=== PATIENT | female | born 1955 | race Caucasian/White ===

== ENCOUNTER → 2016-05-04 | Outpatient (CLI) | payer SELFPAY ==
[~2016-05-04] MED LIST: ACCUNEB 0.0.63 MG/3 INH; ACCUNEB 0.1.25 MG/1 NEB; ADVAIR 250/501 EA INH; ALBUTEROL INH; ALBUTEROL0.09 MG/A2 IH; ALBUTEROL0.09 MG/Ac INH; ANTIVERT25 MG PO; ASPIR-LOW81 MG PO; ASPIR-TRIN325 MG PO; Albuterol Sulfat3 ML; CATAFLAM50 MG PO; CEFTIN250 MG PO; CEPACOL PO; CIPRO500 MG PO; COLACE100 MG PO; CORDROL20 MG PO; DELTASONE20 M1 PO; DOXYCYCLINE100 MG PO; DUONEB 3 MG/3 ML3 M1 INH; Duoneb 3ML 3 MG/3 ML NEB; HYDROCODONE BIT1 T11 PO; IMDUR SA60 M1 PO; LACTULOSE20 GM/30 M PO; LEVAQUIN750 M1 PO; LEVOFLOXACIN500 MG PO; LORAZEPAM0.5 MG PO; MAXIPIME1 GM IV; MEDROL DOSEPAK4 MG PO; MIRALAX17 GM/DOSE PO; MUCINEX600 MG PO; NICODERM21 MG/24 H TD; PHENERGAN W/DM120 ML PO; PLAVIX75 MG PO; PRAVACHOL10 MG PO; PREDNICOT10 MG PO; PREDNICOT20 MG PO; PREDNISONE10 MG PO; PREDNISONE20 M1 PO; PREDNISONE50 MG PO; SEPTRA DS 800 M1 TAB PO; TENORMIN25 MG PO; TRAZODONE50 MG PO; VENTOLIN H0.09 MG/AC INH; VIBRAMYCIN100 MG PO; Ventolin 02.5 MG/3 M INH; ZITHROMAX Z PA250 MG PO; ZITHROMAX250 MG PO
== END | disposition home or self-care (01) ==
LOC: RESCLI 02:53
DX: Z09 Encounter for follow-up examination after completed treatment for conditions other than malignant neoplasm (principal); J44.9 Chronic obstructive pulmonary disease, unspecified; I10 Essential (primary) hypertension; R42 Dizziness and giddiness; T88.7XXA Unspecified adverse effect of drug or medicament, initial encounter; Z99.81 Dependence on supplemental oxygen; Z72.0 Tobacco use; Z71.6 Tobacco abuse counseling; Z87.891 Personal history of nicotine dependence

== ENCOUNTER → 2016-05-18 | Outpatient (CLI) | payer SELFPAY | END | disposition home or self-care (01) | LOC: RESCLI 03:54 | DX: J44.9 Chronic obstructive pulmonary disease, unspecified (principal); I10 Essential (primary) hypertension; I73.9 Peripheral vascular disease, unspecified; J96.11 Chronic respiratory failure with hypoxia; Z99.81 Dependence on supplemental oxygen; Z87.891 Personal history of nicotine dependence ==

== ENCOUNTER → 2016-08-10 | Outpatient (CLI) | payer SELFPAY | END | disposition home or self-care (01) | LOC: RESCLI 01:06 | DX: I10 Essential (primary) hypertension (principal); J96.11 Chronic respiratory failure with hypoxia; J44.9 Chronic obstructive pulmonary disease, unspecified; I25.118 Atherosclerotic heart disease of native coronary artery with other forms of angina pectoris; F33.0 Major depressive disorder, recurrent, mild; Z99.81 Dependence on supplemental oxygen; Z72.0 Tobacco use ==

== ENCOUNTER 2016-09-02 20:19 | Inpatient (IN) | payer SELFPAY ==
[~2016-09-02] VITALS: Ht 162.5 cm; Wt 77.4 kg
--- NOTE | ~2016-09-02 | CON ---
[place], [place] REPORT OF CONSULTATION NAME: TACO MIRELES UNIT #: [id number] ROOM: 532 DOCTOR: SHAKEEL JADE MD BIRTHDATE: [birth year] DOS: HISTORY OF PRESENT ILLNESS: The patient is well known to me with a known history of heavy tobacco abuse, occluded right coronary artery with collaterals with moderate disease of the LAD and circumflex. The patient was just seen by me in my office and scheduled for an outpatient stress test for tuesday, admitted with increasing shortness of breath and chest discomfort. No acute EKG changes, suggestion of myocardial injury or infarction. The patient is being treated for COPD. The patient continues to be smoking and she is a smoker, still has some chest pain, is more pleuritic in nature. No nausea, no vomiting. PAST MEDICAL HISTORY: Significant for coronary artery disease, COPD, depression, hypertension, peripheral arterial disease and tobacco abuse. SURGICAL PROBLEMS: Previous cardiac catheterization, tracheostomy, stent placement, hysterectomy. SOCIAL HISTORY: Continues to smoke about 1 to 1-1/2 packs per day, occasional alcohol. FAMILY HISTORY: Positive for coronary artery disease. ALLERGIES: None. HOME MEDICATIONS: Aspirin, atenolol, clopidogrel, and isosorbide. ALLERGIES: None. REVIEW OF SYSTEMS: CONSTITUTIONAL: No fever, no chills. HEENT: No visual disturbances or hearing problems. CARDIOVASCULAR: As per HPI. RESPIRATORY: Positive for shortness of breath. GASTROINTESTINAL: No nausea, no vomiting. GENITOURINARY: No dysuria. NEUROLOGIC: No syncope. ENDOCRINE: Intact. PHYSICAL EXAMINATION: VITAL SIGNS: Blood pressure is 140/70, patient is in sinus rhythm. HEENT: Unremarkable. NECK: Supple, no JVD. LUNGS: Diminished breath sounds with few coarse rhonchi. HEART: Sounds are regular. ABDOMEN: Soft. NEUROLOGIC: Stable. LABORATORY DATA: Electrolytes are normal. Creatinine is normal. INR is normal. Hemoglobin is 9.4, hematocrit 32.4. Chest x-ray shows COPD. [place], [place] REPORT OF CONSULTATION NAME: TACO MIRELES UNIT #: [id number] ROOM: 532 DOCTOR: SHAKEEL JADE MD BIRTHDATE: [birth year] IMPRESSION: The patient with possible pneumonitis, COPD exacerbation, atypical chest discomfort, coronary artery disease, thrombocytosis, hypertension, noncompliance, tobacco abuse. RECOMMENDATIONS: Continue the present medications. Continue the steroids and antibiotics. We will continue to keep the stress test as ordered on Tuesday. Continue the nitroglycerin as ordered and we will follow up. SHAKEEL JADE MD CM:CONSTR:REPORT OF CONSULTATION 0728 09/04/16 1916 interface
--- NOTE | ~2016-09-02 | EKG ---
[place], [place] ELECTROCARDIOGRAM REPORT NAME: TACO MIRELES UNIT #: [id number] ROOM: 532 DOCTOR: SHAKEEL JADE MD BIRTHDATE: [birth year] DOS: 09/02/2016 TIME: 20:45:51 Normal sinus rhythm, Q-waves in lead 3, poor R wave progression with nonspecific ST-T changes. SHAKEEL JADE MD CM:EKGRPT:ELECTROCARDIOGRAM REPORT [id number] SHAKEEL JADE MD
[2016-09-02 20:35] VITALS: BP 143/69
[2016-09-02 20:48] LABS: BASO # 0.1 10*3/uL (0.0-0.1); BASO % 0.6 % (0.0-1.0); EOS # 0.2 10*3/uL (0.0-0.4); EOS % 1.4 % (1.0-4.0); HEMATOCRIT 32.4 % (37.0-47.0); HEMOGLOBIN 9.4 g/dl (12.0-16.0); LYMPH # 4.2 10*3/uL (1.3-4.4); LYMPH % 33.8 % (27.0-41.0); MEAN CELL VOLUME 70.9 fl (81.0-99.0); MEAN CORPUSCULAR HGB 20.6 pg (27.0-31.0); MEAN PLATELET VOLUME 8.2 fl (9.6-12.3); MONO # 1.1 10*3/uL (0.1-1.0); MONO % 8.5 % (3.0-9.0); NEUT # 6.9 10*3/uL (2.3-7.9); NEUT % 55.4 % (47.0-73.0); PLATELET COUNT AUTOMATED 440 10*3/uL (130-400); RED BLOOD COUNT 4.57 10*6/uL (4.10-5.10); RED CELL DISTRI WIDTH 18.1 % (0-14.5); WHITE BLOOD COUNT 12.5 10*3/uL (4.8-10.8)
[2016-09-02 20:50] VITALS: BP 168/73
[2016-09-02 21:07] LABS: ALBUMIN 3.6 gm/dl (3.1-4.5); ALKALINE PHOSPHATASE 71 U/L (45-117); BILIRUBIN, TOTAL 0.3 mg/dl (0.2-1.0); BUN 6 mg/dl (7-24); CARBON DIOXIDE 27 mmol/L (21-32); CHLORIDE 99 mmol/L (98-107); EST GLOM FILT AFRICAN AMERICAN > 60 ml/min; GLUCOSE 89 mg/dL (65-99); MAGNESIUM 2.1 mg/dL (1.5-2.1); POTASSIUM 4.2 mmol/L (3.5-5.1); SGOT/AST 19 IU/L (3-35); SGPT/ALT 27 U/L (12-78); SODIUM 135 mmol/L (136-145); TOTAL PROTEIN 7.4 gm/dL (6.4-8.2)
[2016-09-02 21:09] LABS: INTERNATIONAL NORM RATIO 0.9 (2.0-3.5); PROTHROMBIN TIME 9.9 SECONDS (9.0-12.4)
[2016-09-02 21:11] LABS: TROPONIN I < 0.015 ng/ml (<0.045)
[2016-09-02 21:16] VITALS: BP 135/77
[2016-09-02 22:09] VITALS: BP 140/72; BP 170/87
[2016-09-02 23:30] VITALS: BP 128/62
[2016-09-03 07:00] LABS: HEMATOCRIT 30.3 % (37.0-47.0); HEMOGLOBIN 8.7 g/dl (12.0-16.0); MEAN CELL VOLUME 71.5 fl (81.0-99.0); MEAN CORPUSCULAR HGB 20.5 pg (27.0-31.0); MEAN CORPUSCULAR HGB CONC 28.7 g/dl (33.0-37.0); MEAN PLATELET VOLUME 8.6 fl (9.6-12.3); PLATELET COUNT AUTOMATED 439 10*3/uL (130-400); RED BLOOD COUNT 4.24 10*6/uL (4.10-5.10); RED CELL DISTRI WIDTH 17.8 % (0-14.5); WHITE BLOOD COUNT 11.2 10*3/uL (4.8-10.8)
[2016-09-03 07:25] LABS: PROTHROMBIN TIME 10.5 SECONDS (9.0-12.4)
[2016-09-03 07:27] LABS: ALBUMIN 3.2 gm/dl (3.1-4.5); BUN 7 mg/dl (7-24); CARBON DIOXIDE 22 mmol/L (21-32); CHLORIDE 102 mmol/L (98-107); GLUCOSE 161 mg/dL (65-99); MAGNESIUM 1.9 mg/dL (1.5-2.1); POTASSIUM 4.6 mmol/L (3.5-5.1); SODIUM 135 mmol/L (136-145)
[2016-09-03 07:29] LABS: HYPOCHROMIA MODERATE; LYMPHOCYTE # 0.6 10*3/uL (1.3-4.4); MICROCYTOSIS SLIGHT; NEUTROPHIL # 10.6 10*3/uL (2.3-7.9); NEUTROPHILS 95 % (47-73); PLATELET SUFFICIENCY HIGH (NORMAL); TOTAL CELLS COUNTED 100 #CELLS
[2016-09-03 07:30] LABS: HEMOGLOBIN A1c 6.1 % (4.8-5.6); POLYCHROMASIA SLIGHT; SCHISTOCYTES FEW
[2016-09-03 07:38] LABS: ALKALINE PHOSPHATASE 65 U/L (45-117); BILIRUBIN, TOTAL 0.2 mg/dl (0.2-1.0); CHOLESTEROL 197 mg/dL (<200); EST GLOM FILT AFRICAN AMERICAN > 60 ml/min; FREE T4 0.86 ng/dl (0.76-1.46); HDL CHOLESTEROL 72 mg/dl (40-60); IRON 26 ug/dL (50-170); IRON SATURATION 5 %; LDL CHOLESTEROL 116 mg/dL (9-159); PHOSPHOROUS 3.2 mg/dL (2.5-4.9); SGOT/AST 18 IU/L (3-35); SGPT/ALT 25 U/L (12-78); THYROID STIM HORMONE (HS) 0.424 uIU/ml (0.358-4.75); TOTAL PROTEIN 6.9 gm/dL (6.4-8.2); TRIGLYCERIDES 43 mg/dl (<150); UIBC 437 ug/dL (110-365); VLDL CHOLESTEROL 9 mg/dL (6-40)
[2016-09-03 08:00] VITALS: BP 116/56
[2016-09-03 08:04] LABS: VITAMIN D, 25-HYDROXY 25.6 ng/mL (30-100)
[2016-09-03 08:05] LABS: FOLIC ACID 20.91 ng/mL (>5.38)
[2016-09-03 12:00] VITALS: BP 138/64
[2016-09-03 16:00] VITALS: BP 129/63
[2016-09-03 20:00] VITALS: BP 119/56
[2016-09-04] VITALS: BP 129/61
[2016-09-04 07:02] LABS: HEMATOCRIT 28.5 % (37.0-47.0); HEMOGLOBIN 8.2 g/dl (12.0-16.0); LYMPH # 0.9 10*3/uL (1.3-4.4); LYMPH % 10.1 % (27.0-41.0); MEAN CORPUSCULAR HGB 20.7 pg (27.0-31.0); MEAN CORPUSCULAR HGB CONC 28.8 g/dl (33.0-37.0); MEAN PLATELET VOLUME 8.9 fl (9.6-12.3); MONO # 0.2 10*3/uL (0.1-1.0); MONO % 1.8 % (3.0-9.0); NEUT # 7.9 10*3/uL (2.3-7.9); NEUT % 87.7 % (47.0-73.0); PLATELET COUNT AUTOMATED 396 10*3/uL (130-400); RED BLOOD COUNT 3.96 10*6/uL (4.10-5.10); RED CELL DISTRI WIDTH 17.8 % (0-14.5)
[2016-09-04 07:28] LABS: BUN 8 mg/dl (7-24); CARBON DIOXIDE 28 mmol/L (21-32); CHLORIDE 105 mmol/L (98-107); EST GLOM FILT AFRICAN AMERICAN > 60 ml/min; GLUCOSE 147 mg/dL (65-99); POTASSIUM 4.8 mmol/L (3.5-5.1); SODIUM 141 mmol/L (136-145)
[2016-09-04 08:00] VITALS: BP 127/52
[2016-09-04 12:00] VITALS: BP 133/57
[2016-09-04 16:00] VITALS: BP 117/51
[2016-09-04 20:00] VITALS: BP 124/53
[2016-09-05] VITALS: BP 122/50; BP 136/60
[2016-09-05 04:00] VITALS: BP 136/60
[2016-09-05 06:34] LABS: BASO % 0.1 % (0.0-1.0); HEMATOCRIT 26.8 % (37.0-47.0); HEMOGLOBIN 7.7 g/dl (12.0-16.0); IG # 0.1 10*3/uL (0.0-0.1); LYMPH # 1.6 10*3/uL (1.3-4.4); LYMPH % 14.4 % (27.0-41.0); MEAN CELL VOLUME 72.4 fl (81.0-99.0); MEAN CORPUSCULAR HGB 20.8 pg (27.0-31.0); MEAN CORPUSCULAR HGB CONC 28.7 g/dl (33.0-37.0); MEAN PLATELET VOLUME 8.6 fl (9.6-12.3); MONO # 0.9 10*3/uL (0.1-1.0); MONO % 7.9 % (3.0-9.0); NEUT # 8.4 10*3/uL (2.3-7.9); PLATELET COUNT AUTOMATED 360 10*3/uL (130-400); WHITE BLOOD COUNT 10.9 10*3/uL (4.8-10.8)
[2016-09-05 06:56] LABS: BUN 12 mg/dl (7-24); CARBON DIOXIDE 32 mmol/L (21-32); CHLORIDE 101 mmol/L (98-107); EST GLOM FILT AFRICAN AMERICAN > 60 ml/min; GLUCOSE 105 mg/dL (65-99); POTASSIUM 4.1 mmol/L (3.5-5.1); SODIUM 139 mmol/L (136-145)
[2016-09-05 08:00] VITALS: BP 119/53
[2016-09-05] MEDS ORDERED: FEROSUL325 MG PO (11:12)
[2016-09-05] MEDS ORDERED: D-1000 185 MG-11 TAB PO (11:12)
[2016-09-05] MEDS ORDERED: PREDNISONE10 MG PO (11:12)
[2016-09-05] MEDS ORDERED: LEVOFLOXACIN500 MG PO (11:12)
[2016-09-05 12:00] VITALS: BP 119/64
== END 2016-09-05 13:09 | disposition home or self-care (01) | DRG 871 ==
LOC: ED 20:19 → EDHOLD 21:51 → 5E 22:10
PROVIDERS: Internal Medicine; Student in an Organized Health Care Education/Training Program
DX: A41.9 Sepsis, unspecified organism (principal); J18.9 Pneumonia, unspecified organism; Z93.0 Tracheostomy status; J44.0 Chronic obstructive pulmonary disease with (acute) lower respiratory infection; E87.1 Hypo-osmolality and hyponatremia; D50.9 Iron deficiency anemia, unspecified; I10 Essential (primary) hypertension; F17.210 Nicotine dependence, cigarettes, uncomplicated; J44.1 Chronic obstructive pulmonary disease with (acute) exacerbation; I25.119 Atherosclerotic heart disease of native coronary artery with unspecified angina pectoris; F32.9 Major depressive disorder, single episode, unspecified; I73.9 Peripheral vascular disease, unspecified; D47.3 Essential (hemorrhagic) thrombocythemia; R07.82 Intercostal pain; F41.9 Anxiety disorder, unspecified; Z90.710 Acquired absence of both cervix and uterus; Z82.49 Family history of ischemic heart disease and other diseases of the circulatory system; Z71.6 Tobacco abuse counseling; Z95.9 Presence of cardiac and vascular implant and graft, unspecified; Z79.51 Long term (current) use of inhaled steroids; Z79.82 Long term (current) use of aspirin; Z79.899 Other long term (current) drug therapy

== ENCOUNTER → 2016-09-07 | Outpatient (CLI) | payer SELFPAY ==
[~2016-09-07] MED LIST changes: +D-1000 185 MG-11 TAB PO; +FEROSUL325 MG PO
--- NOTE | ~2016-09-07 | ST ---
[place], [place] EXERCISE STRESS TEST REPORT NAME: TACO MIRELES UNIT #: [id number] ROOM: DOCTOR: SHAKEEL JADE MD BIRTHDATE: [birth year] DOS: Lexiscan portion of the Lexiscan Cardiolite. Baseline cardiogram is sinus rhythm with nonspecific ST-T changes. The patient received 0.4 mg Lexiscan, duration of 10 seconds after 1 minute test duration. The patient did have significant shortness of breath, but no new EKG changes. No chest discomfort. Blood pressure and heart rate response was normal. FINAL IMPRESSION: No EKG changes with Lexiscan. No chest pain with Lexiscan. Positive shortness of breath with Lexiscan. Blood pressure and heart rate response was normal. Nuclear images will be reported separately. SHAKEEL JADE MD CM:STRESS:EXERCISE STRESS TEST REPORT [id number] SHAKEEL JADE MD
== END | disposition home or self-care (01) ==
LOC: CARD 02:05
DX: I25.729 Atherosclerosis of autologous artery coronary artery bypass graft(s) with unspecified angina pectoris (principal); R53.81 Other malaise

== ENCOUNTER 2016-09-20 22:35 | Inpatient (IN) | payer SELFPAY ==
[~2016-09-20] VITALS: Ht 162.6 cm; Wt 77.8 kg
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
[2016-09-20 22:43] VITALS: BP 151/72
[2016-09-20] MEDS ORDERED: VITAMIN D-32000 UNIT PO (22:44)
[2016-09-20 23:20] VITALS: BP 164/77
[2016-09-20 23:59] LABS: BASO % 0.2 % (0.0-1.0); EOS # 0.1 10*3/uL (0.0-0.4); EOS % 0.8 % (1.0-4.0); HEMATOCRIT 31.5 % (37.0-47.0); HEMOGLOBIN 9.1 g/dl (12.0-16.0); IG # 0.1 10*3/uL (0.0-0.1); LYMPH # 4.7 10*3/uL (1.3-4.4); LYMPH % 27.7 % (27.0-41.0); MEAN CELL VOLUME 70.3 fl (81.0-99.0); MEAN CORPUSCULAR HGB 20.3 pg (27.0-31.0); MEAN CORPUSCULAR HGB CONC 28.9 g/dl (33.0-37.0); MEAN PLATELET VOLUME 8.2 fl (9.6-12.3); MONO # 1.5 10*3/uL (0.1-1.0); MONO % 8.7 % (3.0-9.0); NEUT # 10.5 10*3/uL (2.3-7.9); PLATELET COUNT AUTOMATED 537 10*3/uL (130-400); RED BLOOD COUNT 4.48 10*6/uL (4.10-5.10); RED CELL DISTRI WIDTH 19.3 % (0-14.5)
[2016-09-21] VITALS (7 sets, daily range): BP systolic 98–145; BP diastolic 48–56
[2016-09-21 00:08] LABS: ALBUMIN 3.4 gm/dl (3.1-4.5); ALKALINE PHOSPHATASE 65 U/L (45-117); BILIRUBIN, TOTAL 0.1 mg/dl (0.2-1.0); BUN 12 mg/dl (7-24); CARBON DIOXIDE 28 mmol/L (21-32); CHLORIDE 103 mmol/L (98-107); EST GLOM FILT AFRICAN AMERICAN > 60 ml/min; GLUCOSE 108 mg/dL (65-99); MAGNESIUM 2.2 mg/dL (1.5-2.1); POTASSIUM 3.9 mmol/L (3.5-5.1); SGOT/AST 14 IU/L (3-35); SGPT/ALT 27 U/L (12-78); SODIUM 136 mmol/L (136-145); TOTAL PROTEIN 6.8 gm/dL (6.4-8.2)
[2016-09-21 00:09] LABS: TROPONIN I < 0.015 ng/ml (<0.045)
[2016-09-21 06:41] LABS: HEMATOCRIT 28.8 % (37.0-47.0); HEMOGLOBIN 8.2 g/dl (12.0-16.0); MEAN CELL VOLUME 71.1 fl (81.0-99.0); MEAN CORPUSCULAR HGB 20.2 pg (27.0-31.0); MEAN CORPUSCULAR HGB CONC 28.5 g/dl (33.0-37.0); MEAN PLATELET VOLUME 8.4 fl (9.6-12.3); PLATELET COUNT AUTOMATED 489 10*3/uL (130-400); RED BLOOD COUNT 4.05 10*6/uL (4.10-5.10); RED CELL DISTRI WIDTH 19.1 % (0-14.5); WHITE BLOOD COUNT 15.1 10*3/uL (4.8-10.8)
[2016-09-21 07:04] LABS: BUN 9 mg/dl (7-24); CARBON DIOXIDE 30 mmol/L (21-32); CHLORIDE 104 mmol/L (98-107); CHOLESTEROL 157 mg/dL (<200); EST GLOM FILT AFRICAN AMERICAN > 60 ml/min; FREE T4 0.92 ng/dl (0.76-1.46); GLUCOSE 94 mg/dL (65-99); HDL CHOLESTEROL 73 mg/dl (40-60); LDL CHOLESTEROL 67 mg/dL (9-159); SODIUM 141 mmol/L (136-145); TRIGLYCERIDES 86 mg/dl (<150); VLDL CHOLESTEROL 17 mg/dL (6-40)
[2016-09-21 07:07] LABS: BASOPHIL # 0.3 10*3/uL (0-0.1); BASOPHILS 2 % (0-1); EOSINOPHIL # 0.2 10*3/uL (0-0.4); EOSINOPHILS 1 % (1-4); LYMPHOCYTE # 6.5 10*3/uL (1.3-4.4); MONOCYTE # 0.6 10*3/uL (0.1-1.0); NEUTROPHIL # 7.6 10*3/uL (2.3-7.9); NEUTROPHILS 50 % (47-73); PLATELET SUFFICIENCY HIGH (NORMAL); TOTAL CELLS COUNTED 100 #CELLS
[2016-09-21 07:08] LABS: HYPOCHROMIA SLIGHT; OVALOCYTES FEW; TARGET CELLS FEW
[2016-09-21 07:39] LABS: HEMOGLOBIN A1c 6.2 % (4.8-5.6)
[2016-09-21 08:34] LABS: FOLIC ACID 21.38 ng/mL (>5.38)
[2016-09-22] VITALS: BP 128/58
[2016-09-22 06:11] LABS: BASO % 0.1 % (0.0-1.0); HEMATOCRIT 29.6 % (37.0-47.0); HEMOGLOBIN 8.6 g/dl (12.0-16.0); IG # 0.1 10*3/uL (0.0-0.1); LYMPH # 1.1 10*3/uL (1.3-4.4); LYMPH % 9.6 % (27.0-41.0); MEAN CELL VOLUME 71.8 fl (81.0-99.0); MEAN CORPUSCULAR HGB 20.9 pg (27.0-31.0); MEAN CORPUSCULAR HGB CONC 29.1 g/dl (33.0-37.0); MEAN PLATELET VOLUME 8.5 fl (9.6-12.3); MONO # 0.5 10*3/uL (0.1-1.0); MONO % 4.6 % (3.0-9.0); NEUT # 10.1 10*3/uL (2.3-7.9); NEUT % 84.9 % (47.0-73.0); PLATELET COUNT AUTOMATED 494 10*3/uL (130-400); RED BLOOD COUNT 4.12 10*6/uL (4.10-5.10); RED CELL DISTRI WIDTH 19.1 % (0-14.5); WHITE BLOOD COUNT 11.8 10*3/uL (4.8-10.8)
[2016-09-22 06:31] LABS: BUN 11 mg/dl (7-24); CARBON DIOXIDE 29 mmol/L (21-32); CHLORIDE 102 mmol/L (98-107); EST GLOM FILT AFRICAN AMERICAN > 60 ml/min; GLUCOSE 123 mg/dL (65-99); POTASSIUM 4.5 mmol/L (3.5-5.1); SODIUM 137 mmol/L (136-145)
[2016-09-22 08:00] VITALS: BP 119/47
[2016-09-22 12:00] VITALS: BP 133/61
[2016-09-22] MEDS ORDERED: ZITHROMAX250 MG PO (14:27)
[2016-09-22 16:00] VITALS: BP 131/53
== END 2016-09-22 17:10 | disposition home or self-care (01) | DRG 871 ==
LOC: ED 22:35 → EDHOLD 09-21 00:24 → 5E 09-21 00:24
PROVIDERS: Emergency Medicine Emergency Medical Services; Family Medicine
DX: A41.9 Sepsis, unspecified organism (principal); J18.9 Pneumonia, unspecified organism; J96.01 Acute respiratory failure with hypoxia; J44.0 Chronic obstructive pulmonary disease with (acute) lower respiratory infection; D50.9 Iron deficiency anemia, unspecified; F17.210 Nicotine dependence, cigarettes, uncomplicated; J44.1 Chronic obstructive pulmonary disease with (acute) exacerbation; I10 Essential (primary) hypertension; E83.41 Hypermagnesemia; I25.118 Atherosclerotic heart disease of native coronary artery with other forms of angina pectoris; I73.9 Peripheral vascular disease, unspecified; F32.9 Major depressive disorder, single episode, unspecified; G44.89 Other headache syndrome; Z79.899 Other long term (current) drug therapy; Z71.6 Tobacco abuse counseling; Z87.01 Personal history of pneumonia (recurrent); Z90.49 Acquired absence of other specified parts of digestive tract; Z90.711 Acquired absence of uterus with remaining cervical stump; Z82.49 Family history of ischemic heart disease and other diseases of the circulatory system; Z83.3 Family history of diabetes mellitus; Z98.61 Coronary angioplasty status

== ENCOUNTER 2016-09-25 11:19 | Emergency (ER) | payer SELFPAY ==
[~2016-09-25] VITALS: Wt 95.3 kg
[~2016-09-25 11:19] MED LIST changes: +VITAMIN D-32000 UNIT PO
[2016-09-25 11:41] LABS: BASO % 0.2 % (0.0-1.0); EOS # 0.3 10*3/uL (0.0-0.4); EOS % 1.4 % (1.0-4.0); HEMATOCRIT 33.3 % (37.0-47.0); HEMOGLOBIN 9.4 g/dl (12.0-16.0); IG # 0.1 10*3/uL (0.0-0.1); LYMPH # 2.6 10*3/uL (1.3-4.4); LYMPH % 14.3 % (27.0-41.0); MEAN CELL VOLUME 72.1 fl (81.0-99.0); MEAN CORPUSCULAR HGB 20.3 pg (27.0-31.0); MEAN CORPUSCULAR HGB CONC 28.2 g/dl (33.0-37.0); MONO % 5.6 % (3.0-9.0); NEUT # 14.1 10*3/uL (2.3-7.9); NEUT % 77.8 % (47.0-73.0); PLATELET COUNT AUTOMATED 450 10*3/uL (130-400); RED BLOOD COUNT 4.62 10*6/uL (4.10-5.10); RED CELL DISTRI WIDTH 19.9 % (0-14.5); WHITE BLOOD COUNT 18.2 10*3/uL (4.8-10.8)
[2016-09-25 11:59] LABS: ALBUMIN 3.3 gm/dl (3.1-4.5); ALKALINE PHOSPHATASE 61 U/L (45-117); BILIRUBIN, TOTAL 0.4 mg/dl (0.2-1.0); BUN 13 mg/dl (7-24); CARBON DIOXIDE 30 mmol/L (21-32); CHLORIDE 103 mmol/L (98-107); EST GLOM FILT AFRICAN AMERICAN > 60 ml/min; GLUCOSE 119 mg/dL (65-99); POTASSIUM 4.3 mmol/L (3.5-5.1); SGOT/AST 15 IU/L (3-35); SGPT/ALT 30 U/L (12-78); SODIUM 138 mmol/L (136-145); TOTAL PROTEIN 6.8 gm/dL (6.4-8.2)
[2016-09-25 12:00] LABS: TROPONIN I < 0.015 ng/ml (<0.045)
[2016-09-25 12:45] VITALS: BP 132/66
[2016-09-25] MEDS ORDERED: PREDNISONE20 M1 PO (13:28)
== END 2016-09-25 14:10 | disposition home or self-care (01) ==
LOC: ED 11:19
PROVIDERS: Nurse Practitioner Family
DX: J44.1 Chronic obstructive pulmonary disease with (acute) exacerbation (principal); D72.829 Elevated white blood cell count, unspecified; F17.200 Nicotine dependence, unspecified, uncomplicated

== ENCOUNTER 2016-09-26 17:48 | Inpatient (IN) | payer SELFPAY ==
[~2016-09-26] VITALS: Ht 162.6 cm; Wt 75.3 kg
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
--- NOTE | ~2016-09-26 | PR ---
[place], [place] PROGRESS NOTE NAME: TACO MIRELES UNIT #: [id number] ROOM: 529 DOCTOR: WOOD AUGUSTINE MD,KJ BIRTHDATE: [birth year] DOS: 09/28/2016 SUBJECTIVE: She reported reduction in symptoms of shortness of breath, the cough has been still noted, not completely resolved, moderately. The wheezing was noted decreased. There were no symptoms of chest pain. OBJECTIVE: VITAL SIGNS: For the patient which has been recorded shows normal temperature, respiratory rate 18, heart rate 77, blood pressure 130/59. Pulse oxygen saturation of the patient noted on 4 liters nasal cannula 98% saturation. HEENT: Showed no acute change. NECK: Supple. CARDIOVASCULAR: S1, S2 is audible. LUNGS: The patient was noted with moderate general reduction in breath sounds and mild expiratory wheezing. ABDOMEN: Soft and nontender. LABORATORY DATA: CBC: WBC count 13.4, hemoglobin 8.6, hematocrit 29.8, platelet count 409,000. BMP was noted as BUN and creatinine were normal. IMPRESSION: 1. Acute exacerbation of chronic obstructive pulmonary disease was noted with acute tracheobronchitis. 2. Right upper lung pulmonary nodule, suspected malignancy. 3. History of chronic heavy nicotine abuse, known for a mcfp. PLAN OF TREATMENT: No changes from the pulmonary standpoint at this time was planned. The patient has been ordered CT-guided needle aspirate biopsy by Dr. Autumn Le. Await for the results of the biopsy. Reduce the dose of Solu-Medrol progressively as the patient with improvement in the respiratory status. Other usual care, plan of management and treatments. KJ MUIR MD CM:PNTRANS 1011 1212 KJ AUGUSTINE MD 09/29/16 1212 interface
--- NOTE | ~2016-09-26 | PR ---
[place], [place] PROGRESS NOTE NAME: TACO MIRELES UNIT #: [id number] ROOM: 529 DOCTOR: WOOD AUGUSTINE MD,KJ BIRTHDATE: [birth year] DOS: 09/29/2016 SUBJECTIVE: She has been continued with current plan of treatment at this time without any changes. Denies symptoms of chest pain or any abdominal pain. Coughing, the patient has history reported. She was taken off the Plavix. The biopsy of the right lung pulmonary nodule was scheduled to be done on Tuesday. OBJECTIVE: VITAL SIGNS: Recorded shows the blood pressure noted as 111/57, respiratory rate 18, heart rate 74, temperature normal. The pulse oxygen saturation recorded as 97% on 2 L nasal cannula. HEENT: No acute change. NECK: Supple. CARDIOVASCULAR: S1, S2 audible. LUNGS: Moderate general reduction in the breath sounds were noted in the lungs bilaterally. ABDOMEN: Soft, nontender. EXTREMITIES: Shows no edema. IMPRESSION: Acute exacerbation of chronic obstructive pulmonary disease, acute tracheobronchitis, history of nicotine dependence and right lung pulmonary nodule suspicious for malignancy. PLAN OF TREATMENT: No changes in the plan of management at this time needs to be done. All other previous treatment will be continued previously in progress. Usual care. All other supportive therapy, plan of care. KJ MUIR MD CM:PNTRANS 1152 07 KJ AUGUSTINE MD 09/29/162207 interface
--- NOTE | ~2016-09-26 | PR ---
[place], [place] PROGRESS NOTE NAME: TACO MIRELES UNIT #: [id number] ROOM: 529 DOCTOR: KJ PENN MD BIRTHDATE: [birth year] DOS: 09/30/2016 PULMONARY FOLLOWUP SUBJECTIVE: She has been noted comfortable at this time reporting reduction and improvement in the respiratory symptoms of cough, wheezing and shortness of breath. She was planned for discharge home today on tapering dose of prednisone. The patient has a biopsy of the right upper lung pulmonary nodule suggested by the hospitalist services for Tuesday. OBJECTIVE: VITAL SIGNS: Showed normal temperature, respiratory rate of 20, heart rate of 69, blood pressure 110/54, pulse ox saturation on 1 liter nasal cannula 96% saturation. HEENT: No acute change. CARDIOVASCULAR: S1, S2 audible. LUNGS: Moderate decreased breath sounds noted in the lungs bilaterally. ABDOMEN: Soft and nontender. LABORATORY DATA: BMP for this patient was noted with potassium of 5.2, CO2 of 34. CBC: WBC count 9.2, hematocrit 32.0, platelet count was normal. IMPRESSION: 1. Right upper lung pulmonary nodule. The patient noted with acute exacerbation of chronic obstructive pulmonary disease and acute tracheobronchitis. 2. Mild hyperkalemia, which has been addressed by the primary care attending team. 3. History of pulmonary nodules suspicious for malignancy, right upper lung. Proceed with the biopsy and the right upper lung pulmonary nodule as an outpatient. Other treatment plan of management. If the patient desires, she can establish appointment in the office. She has not been seen in my office for the past 7 years. It was recommended to be seen in the hospital after previous hospitalization, but she has not made any appointments. [place], [place] PROGRESS NOTE NAME: TACO MIRELES UNIT #: [id number] ROOM: 529 DOCTOR: KJ PENN MD BIRTHDATE: [birth year] KJ MUIR MD CM:PNTRANS 1143 1201 KJ AUGUSTINE MD 09/30/16 1201 interface
[2016-09-26 17:54] VITALS: BP 175/86
[2016-09-26 18:21] LABS: HEMATOCRIT 32.2 % (37.0-47.0); HEMOGLOBIN 9.4 g/dl (12.0-16.0); MEAN CELL VOLUME 69.7 fl (81.0-99.0); MEAN CORPUSCULAR HGB 20.3 pg (27.0-31.0); MEAN CORPUSCULAR HGB CONC 29.2 g/dl (33.0-37.0); MEAN PLATELET VOLUME 8.5 fl (9.6-12.3); PLATELET COUNT AUTOMATED 478 10*3/uL (130-400); RED BLOOD COUNT 4.62 10*6/uL (4.10-5.10); RED CELL DISTRI WIDTH 19.9 % (0-14.5); WHITE BLOOD COUNT 15.2 10*3/uL (4.8-10.8)
[2016-09-26 18:38] LABS: ALBUMIN 3.6 gm/dl (3.1-4.5); ALKALINE PHOSPHATASE 61 U/L (45-117); BILIRUBIN, TOTAL 0.3 mg/dl (0.2-1.0); BUN 11 mg/dl (7-24); CARBON DIOXIDE 26 mmol/L (21-32); CHLORIDE 97 mmol/L (98-107); EST GLOM FILT AFRICAN AMERICAN > 60 ml/min; GLUCOSE 135 mg/dL (65-99); POTASSIUM 4.6 mmol/L (3.5-5.1); SGOT/AST 12 IU/L (3-35); SGPT/ALT 35 U/L (12-78); SODIUM 135 mmol/L (136-145); TOTAL PROTEIN 7.2 gm/dL (6.4-8.2)
[2016-09-26 18:39] VITALS: BP 119/86
[2016-09-26 18:40] LABS: LYMPHOCYTE # 0.8 10*3/uL (1.3-4.4); METAMYELOCYTES 1 % (0-0); NEUTROPHIL # 14.3 10*3/uL (2.3-7.9); NEUTROPHILS 94 % (47-73); TOTAL CELLS COUNTED 100 #CELLS
[2016-09-26 18:41] LABS: HYPOCHROMIA SLIGHT; OVALOCYTES FEW; PLATELET SUFFICIENCY HIGH (NORMAL); ROULEAUX SLIGHT; TARGET CELLS FEW
[2016-09-26 18:42] LABS: MICROCYTOSIS SLIGHT
[2016-09-26 18:43] LABS: TROPONIN I < 0.015 ng/ml (<0.045)
[2016-09-26 18:59] VITALS: BP 154/74
[2016-09-26 20:00] VITALS: BP 163/86
[2016-09-27] VITALS: BP 116/45
[2016-09-27 06:27] LABS: HEMATOCRIT 29.4 % (37.0-47.0); HEMOGLOBIN 8.5 g/dl (12.0-16.0); MEAN CELL VOLUME 71.2 fl (81.0-99.0); MEAN CORPUSCULAR HGB 20.6 pg (27.0-31.0); MEAN CORPUSCULAR HGB CONC 28.9 g/dl (33.0-37.0); MEAN PLATELET VOLUME 8.9 fl (9.6-12.3); PLATELET COUNT AUTOMATED 430 10*3/uL (130-400); RED BLOOD COUNT 4.13 10*6/uL (4.10-5.10); RED CELL DISTRI WIDTH 19.7 % (0-14.5); WHITE BLOOD COUNT 11.8 10*3/uL (4.8-10.8)
[2016-09-27 06:53] LABS: ALKALINE PHOSPHATASE 53 U/L (45-117); BILIRUBIN, TOTAL 0.2 mg/dl (0.2-1.0); BUN 13 mg/dl (7-24); CARBON DIOXIDE 26 mmol/L (21-32); CHLORIDE 102 mmol/L (98-107); EST GLOM FILT AFRICAN AMERICAN > 60 ml/min; GLUCOSE 132 mg/dL (65-99); MAGNESIUM 1.9 mg/dL (1.5-2.1); PHOSPHOROUS 3.7 mg/dL (2.5-4.9); POTASSIUM 4.6 mmol/L (3.5-5.1); SGOT/AST 25 IU/L (3-35); SGPT/ALT 41 U/L (12-78); SODIUM 134 mmol/L (136-145); TOTAL PROTEIN 6.2 gm/dL (6.4-8.2)
[2016-09-27 06:55] LABS: PROTHROMBIN TIME 10.7 SECONDS (9.0-12.4)
[2016-09-27 07:26] LABS: ACANTHOCYTES FEW; HYPOCHROMIA SLIGHT; LYMPHOCYTE # 0.4 10*3/uL (1.3-4.4); MICROCYTOSIS SLIGHT; NEUTROPHIL # 11.4 10*3/uL (2.3-7.9); NEUTROPHILS 97 % (47-73); PLATELET SUFFICIENCY HIGH (NORMAL); TOTAL CELLS COUNTED 100 #CELLS
[2016-09-27 08:00] VITALS: BP 134/60
[2016-09-27 12:00] VITALS: BP 139/62
[2016-09-27 16:00] VITALS: BP 126/49
[2016-09-27 20:00] VITALS: BP 135/60
[2016-09-28] VITALS (7 sets, daily range): BP systolic 110–149; BP diastolic 52–68
[2016-09-28 06:14] LABS: BASO % 0.1 % (0.0-1.0); HEMATOCRIT 29.8 % (37.0-47.0); HEMOGLOBIN 8.6 g/dl (12.0-16.0); IG # 0.1 10*3/uL (0.0-0.1); LYMPH # 1.3 10*3/uL (1.3-4.4); LYMPH % 9.4 % (27.0-41.0); MEAN CELL VOLUME 72.2 fl (81.0-99.0); MEAN CORPUSCULAR HGB 20.8 pg (27.0-31.0); MEAN CORPUSCULAR HGB CONC 28.9 g/dl (33.0-37.0); MEAN PLATELET VOLUME 8.8 fl (9.6-12.3); MONO # 1.1 10*3/uL (0.1-1.0); MONO % 8.4 % (3.0-9.0); NEUT # 10.9 10*3/uL (2.3-7.9); NEUT % 81.7 % (47.0-73.0); PLATELET COUNT AUTOMATED 409 10*3/uL (130-400); RED BLOOD COUNT 4.13 10*6/uL (4.10-5.10); WHITE BLOOD COUNT 13.4 10*3/uL (4.8-10.8)
[2016-09-28 06:42] LABS: BUN 15 mg/dl (7-24); CARBON DIOXIDE 32 mmol/L (21-32); CHLORIDE 101 mmol/L (98-107); EST GLOM FILT AFRICAN AMERICAN > 60 ml/min; GLUCOSE 108 mg/dL (65-99); POTASSIUM 4.7 mmol/L (3.5-5.1); SODIUM 137 mmol/L (136-145)
[2016-09-29] VITALS: BP 122/58
[2016-09-29 04:00] VITALS: BP 122/58
[2016-09-29 06:04] LABS: BASO % 0.1 % (0.0-1.0); HEMATOCRIT 31.1 % (37.0-47.0); HEMOGLOBIN 8.7 g/dl (12.0-16.0); IG # 0.1 10*3/uL (0.0-0.1); LYMPH # 1.5 10*3/uL (1.3-4.4); LYMPH % 13.4 % (27.0-41.0); MEAN CORPUSCULAR HGB 20.1 pg (27.0-31.0); MEAN PLATELET VOLUME 8.7 fl (9.6-12.3); MONO % 8.9 % (3.0-9.0); NEUT # 8.4 10*3/uL (2.3-7.9); NEUT % 77.1 % (47.0-73.0); PLATELET COUNT AUTOMATED 382 10*3/uL (130-400); RED BLOOD COUNT 4.32 10*6/uL (4.10-5.10); RED CELL DISTRI WIDTH 19.8 % (0-14.5)
[2016-09-29 06:28] LABS: BUN 12 mg/dl (7-24); CARBON DIOXIDE 33 mmol/L (21-32); CHLORIDE 100 mmol/L (98-107); EST GLOM FILT AFRICAN AMERICAN > 60 ml/min; GLUCOSE 103 mg/dL (65-99); POTASSIUM 4.6 mmol/L (3.5-5.1); SODIUM 136 mmol/L (136-145)
[2016-09-29 08:00] VITALS: BP 117/52
[2016-09-29 12:00] VITALS: BP 103/48
[2016-09-29 16:00] VITALS: BP 126/58
[2016-09-29 20:00] VITALS: BP 119/55
[2016-09-30] VITALS: BP 130/55
[2016-09-30 06:28] LABS: BASO % 0.1 % (0.0-1.0); HEMOGLOBIN 9.2 g/dl (12.0-16.0); IG # 0.1 10*3/uL (0.0-0.1); LYMPH # 0.9 10*3/uL (1.3-4.4); LYMPH % 9.9 % (27.0-41.0); MEAN CELL VOLUME 73.4 fl (81.0-99.0); MEAN CORPUSCULAR HGB 21.1 pg (27.0-31.0); MEAN CORPUSCULAR HGB CONC 28.8 g/dl (33.0-37.0); MEAN PLATELET VOLUME 9.1 fl (9.6-12.3); MONO # 0.2 10*3/uL (0.1-1.0); MONO % 2.5 % (3.0-9.0); NEUT # 7.6 10*3/uL (2.3-7.9); NEUT % 86.8 % (47.0-73.0); PLATELET COUNT AUTOMATED 394 10*3/uL (130-400); RED BLOOD COUNT 4.36 10*6/uL (4.10-5.10); RED CELL DISTRI WIDTH 20.1 % (0-14.5); WHITE BLOOD COUNT 8.7 10*3/uL (4.8-10.8)
[2016-09-30 06:41] LABS: BUN 11 mg/dl (7-24); CARBON DIOXIDE 34 mmol/L (21-32); CHLORIDE 99 mmol/L (98-107); EST GLOM FILT AFRICAN AMERICAN > 60 ml/min; GLUCOSE 127 mg/dL (65-99); POTASSIUM 5.2 mmol/L (3.5-5.1); SODIUM 136 mmol/L (136-145)
[2016-09-30 08:00] VITALS: BP 110/54
[2016-09-30 12:00] VITALS: BP 141/57
[2016-09-30] MEDS ORDERED: ASPIR-TRIN325 MG PO (13:28)
[2016-09-30] MEDS ORDERED: PLAVIX75 M1 PO (13:28)
[2016-09-30] MEDS ORDERED: PREDNISONE10 MG PO (13:30)
[2016-09-30] MEDS ORDERED: AVPAK AZITHROM250 M1 PO (13:30)
== END 2016-09-30 15:15 | disposition home or self-care (01) | DRG 871 ==
LOC: ED 17:48 → EDHOLD 18:52 → 5E 18:52
PROVIDERS: Hospitalist; Internal Medicine; Nurse Practitioner Family
DX: A41.9 Sepsis, unspecified organism (principal); J96.01 Acute respiratory failure with hypoxia; J18.9 Pneumonia, unspecified organism; J44.0 Chronic obstructive pulmonary disease with (acute) lower respiratory infection; D50.9 Iron deficiency anemia, unspecified; F17.210 Nicotine dependence, cigarettes, uncomplicated; J44.1 Chronic obstructive pulmonary disease with (acute) exacerbation; E87.1 Hypo-osmolality and hyponatremia; F32.9 Major depressive disorder, single episode, unspecified; I73.9 Peripheral vascular disease, unspecified; K08.409 Partial loss of teeth, unspecified cause, unspecified class; I10 Essential (primary) hypertension; R91.1 Solitary pulmonary nodule; I25.10 Atherosclerotic heart disease of native coronary artery without angina pectoris; J20.9 Acute bronchitis, unspecified; E87.5 Hyperkalemia; F41.1 Generalized anxiety disorder; E78.00 Pure hypercholesterolemia, unspecified; E66.9 Obesity, unspecified; Z79.2 Long term (current) use of antibiotics; Z79.82 Long term (current) use of aspirin; Z79.899 Other long term (current) drug therapy; Z90.711 Acquired absence of uterus with remaining cervical stump; Z93.0 Tracheostomy status; Z83.3 Family history of diabetes mellitus; Z82.49 Family history of ischemic heart disease and other diseases of the circulatory system; Z68.28 Body mass index [BMI] 28.0-28.9, adult

== ENCOUNTER 2016-10-04 00:52 | Inpatient (IN) | payer SELFPAY ==
[2016-10-04] VITALS (9 sets, daily range): BP systolic 100–160; BP diastolic 40–77
[~2016-10-04] VITALS: Ht 162.6 cm; Wt 77.1 kg
--- NOTE | ~2016-10-04 | PR ---
[place], [place] PROGRESS NOTE NAME: TACO MIRELES UNIT #: [id number] ROOM: [facility]- DOCTOR: LLOYD PINO CRNA BIRTHDATE: [birth year] DOS: 10/08/2016 INTUBATION NOTE. Responded to code blue for cardiac arrest. The patient in cardiac arrest with CPR in progress. Rhythm, pulseless electrical activity. Ventilation, 100% O2 with Ambu bag. The patient receiving appropriate pharmacologic intervention with spontaneous return of circulation. The patient's intubation attempt x [address] Menjivar without success. The patient intubated by Lloyd Pino CRNA x 1 with 8 mm ET tube. Good visualization. Tube, once it was past the glottic opening, met some subglottic resistance. ET tube removed and replaced with a 7 mm ET tube. Good bilateral breath sounds, sat going to 100% on 100% O2. LLOYD PINO CRNA CM:PNTRANS 1107 [id number] LLOYD PINO CRNA 10/09/16 0629 interface
[~2016-10-04 00:52] MED LIST changes: +AVPAK AZITHROM250 M1 PO; +PLAVIX75 M1 PO
[2016-10-04 09:13] LABS: ACT PARTIAL THROMBO TIME 19.2 SECONDS (20.8-31.5)
[2016-10-04 13:37] LABS: HEMATOCRIT 32.1 % (37.0-47.0); HEMOGLOBIN 9.4 g/dl (12.0-16.0); MEAN CELL VOLUME 71.5 fl (81.0-99.0); MEAN CORPUSCULAR HGB 20.9 pg (27.0-31.0); MEAN CORPUSCULAR HGB CONC 29.3 g/dl (33.0-37.0); MEAN PLATELET VOLUME 8.8 fl (9.6-12.3); PLATELET COUNT AUTOMATED 363 10*3/uL (130-400); RED BLOOD COUNT 4.49 10*6/uL (4.10-5.10); RED CELL DISTRI WIDTH 21.7 % (0-14.5); WHITE BLOOD COUNT 18.1 10*3/uL (4.8-10.8)
[2016-10-04 13:54] LABS: ALBUMIN 3.1 gm/dl (3.1-4.5); ALKALINE PHOSPHATASE 53 U/L (45-117); BUN 15 mg/dl (7-24); CHLORIDE 101 mmol/L (98-107); CREATININE 0.75 mg/dL (0.55-1.02); MAGNESIUM 2.3 mg/dL (1.5-2.1); POTASSIUM 3.8 mmol/L (3.5-5.1); SGOT/AST 18 IU/L (3-35); SGPT/ALT 37 U/L (12-78); SODIUM 140 mmol/L (136-145); TOTAL PROTEIN 6.2 gm/dL (6.4-8.2)
[2016-10-04 13:56] LABS: MICROCYTOSIS MODERATE; PLATELET SUFFICIENCY NORMAL (NORMAL); TOTAL CELLS COUNTED 100 #CELLS
[2016-10-04 13:57] LABS: POLYCHROMASIA SLIGHT; SCHISTOCYTES FEW
[2016-10-05 04:02] VITALS: BP 120/64
[2016-10-05 05:57] LABS: BASO % 0.1 % (0.0-1.0); EOS # 0.1 10*3/uL (0.0-0.4); EOS % 0.7 % (1.0-4.0); HEMATOCRIT 31.6 % (37.0-47.0); LYMPH # 4.7 10*3/uL (1.3-4.4); LYMPH % 29.9 % (27.0-41.0); MEAN CELL VOLUME 73.5 fl (81.0-99.0); MEAN CORPUSCULAR HGB 20.9 pg (27.0-31.0); MEAN CORPUSCULAR HGB CONC 28.5 g/dl (33.0-37.0); MEAN PLATELET VOLUME 9.3 fl (9.6-12.3); MONO # 1.1 10*3/uL (0.1-1.0); MONO % 6.8 % (3.0-9.0); NEUT # 9.6 10*3/uL (2.3-7.9); NEUT % 61.3 % (47.0-73.0); PLATELET COUNT AUTOMATED 348 10*3/uL (130-400); RED CELL DISTRI WIDTH 21.6 % (0-14.5); WHITE BLOOD COUNT 15.7 10*3/uL (4.8-10.8)
[2016-10-05 06:21] LABS: ACT PARTIAL THROMBO TIME 19.9 SECONDS (20.8-31.5); BUN 19 mg/dl (7-24); CHLORIDE 101 mmol/L (98-107); CREATININE 0.89 mg/dL (0.55-1.02); MAGNESIUM 2.2 mg/dL (1.5-2.1); PHOSPHOROUS 5.5 mg/dL (2.5-4.9); POTASSIUM 4.5 mmol/L (3.5-5.1); SGOT/AST 19 IU/L (3-35); SGPT/ALT 36 U/L (12-78); SODIUM 137 mmol/L (136-145); TOTAL PROTEIN 6.2 gm/dL (6.4-8.2)
[2016-10-05 06:22] LABS: ALKALINE PHOSPHATASE 51 U/L (45-117)
[2016-10-05 07:14] LABS: VITAMIN D, 25-HYDROXY 20.8 ng/mL (30-100)
[2016-10-05 08:00] VITALS: BP 136/68
[2016-10-05 12:00] VITALS: BP 118/60
[2016-10-05 16:00] VITALS: BP 114/50
[2016-10-05 20:00] VITALS: BP 112/73
[2016-10-06] VITALS: BP 129/57
[2016-10-06 04:00] VITALS: BP 118/59
[2016-10-06 06:05] LABS: BASO % 0.1 % (0.0-1.0); EOS # 0.1 10*3/uL (0.0-0.4); EOS % 0.4 % (1.0-4.0); HEMATOCRIT 28.5 % (37.0-47.0); HEMOGLOBIN 8.3 g/dl (12.0-16.0); LYMPH # 2.3 10*3/uL (1.3-4.4); LYMPH % 17.5 % (27.0-41.0); MEAN CELL VOLUME 72.7 fl (81.0-99.0); MEAN CORPUSCULAR HGB 21.2 pg (27.0-31.0); MEAN CORPUSCULAR HGB CONC 29.1 g/dl (33.0-37.0); MONO # 0.8 10*3/uL (0.1-1.0); MONO % 6.1 % (3.0-9.0); NEUT % 74.8 % (47.0-73.0); PLATELET COUNT AUTOMATED 314 10*3/uL (130-400); RED BLOOD COUNT 3.92 10*6/uL (4.10-5.10); RED CELL DISTRI WIDTH 21.2 % (0-14.5); WHITE BLOOD COUNT 13.3 10*3/uL (4.8-10.8)
[2016-10-06 06:35] LABS: BUN 13 mg/dl (7-24); CHLORIDE 99 mmol/L (98-107); CREATININE 0.73 mg/dL (0.55-1.02); SODIUM 136 mmol/L (136-145)
[2016-10-06 08:00] VITALS: BP 121/55
[2016-10-06 12:00] VITALS: BP 114/49
[2016-10-06 16:00] VITALS: BP 107/48
[2016-10-06 20:00] VITALS: BP 118/59; BP 122/58
[2016-10-07] VITALS: BP 125/60
[2016-10-07 04:00] VITALS: BP 118/59
[2016-10-07 06:07] LABS: IRON 21 ug/dL (50-170); TOTAL IRON BINDING CAPACITY 373 ug/dl (250-450)
[2016-10-07 06:21] LABS: RETICULOCYTE % 1.08 % (0.50-2.50)
[2016-10-07 07:37] LABS: FERRITIN 108.8 ng/mL (10.0-291.0)
[2016-10-07 08:00] VITALS: BP 114/50
[2016-10-07 09:12] LABS: BASO % 0.1 % (0.0-1.0); EOS # 0.2 10*3/uL (0.0-0.4); EOS % 1.1 % (1.0-4.0); HEMATOCRIT 28.5 % (37.0-47.0); LYMPH # 3.4 10*3/uL (1.3-4.4); LYMPH % 25.6 % (27.0-41.0); MEAN CELL VOLUME 75.4 fl (81.0-99.0); MEAN CORPUSCULAR HGB 21.2 pg (27.0-31.0); MEAN CORPUSCULAR HGB CONC 28.1 g/dl (33.0-37.0); MEAN PLATELET VOLUME 9.5 fl (9.6-12.3); MONO # 0.9 10*3/uL (0.1-1.0); MONO % 6.7 % (3.0-9.0); NEUT # 8.7 10*3/uL (2.3-7.9); NEUT % 65.9 % (47.0-73.0); PLATELET COUNT AUTOMATED 313 10*3/uL (130-400); RED BLOOD COUNT 3.78 10*6/uL (4.10-5.10); RED CELL DISTRI WIDTH 21.5 % (0-14.5); WHITE BLOOD COUNT 13.2 10*3/uL (4.8-10.8)
[2016-10-07 12:00] VITALS: BP 135/55
[2016-10-07 16:00] VITALS: BP 129/57
[2016-10-07 20:06] VITALS: BP 130/60
[2016-10-08] VITALS (10 sets, daily range): BP systolic 106–133; BP diastolic 45–64
[2016-10-08 06:09] LABS: BASO % 0.1 % (0.0-1.0); EOS # 0.2 10*3/uL (0.0-0.4); EOS % 1.4 % (1.0-4.0); HEMOGLOBIN 8.5 g/dl (12.0-16.0); LYMPH # 2.9 10*3/uL (1.3-4.4); LYMPH % 19.9 % (27.0-41.0); MEAN CELL VOLUME 75.6 fl (81.0-99.0); MEAN CORPUSCULAR HGB 21.4 pg (27.0-31.0); MEAN CORPUSCULAR HGB CONC 28.3 g/dl (33.0-37.0); MEAN PLATELET VOLUME 9.3 fl (9.6-12.3); MONO % 6.9 % (3.0-9.0); NEUT # 10.5 10*3/uL (2.3-7.9); NEUT % 71.1 % (47.0-73.0); PLATELET COUNT AUTOMATED 331 10*3/uL (130-400); RED BLOOD COUNT 3.97 10*6/uL (4.10-5.10); RED CELL DISTRI WIDTH 22.2 % (0-14.5); WHITE BLOOD COUNT 14.8 10*3/uL (4.8-10.8)
[2016-10-08 06:17] LABS: ALBUMIN 2.9 gm/dl (3.1-4.5); ALKALINE PHOSPHATASE 60 U/L (45-117); BUN 8 mg/dl (7-24); CHLORIDE 102 mmol/L (98-107); CREATININE 0.74 mg/dL (0.55-1.02); POTASSIUM 4.9 mmol/L (3.5-5.1); SGOT/AST 23 IU/L (3-35); SGPT/ALT 37 U/L (12-78); SODIUM 140 mmol/L (136-145); TOTAL PROTEIN 6.2 gm/dL (6.4-8.2)
[2016-10-08 11:08] LABS: HEMATOCRIT 32.7 % (37.0-47.0); HEMOGLOBIN 9.1 g/dl (12.0-16.0); MEAN CELL VOLUME 77.1 fl (81.0-99.0); MEAN CORPUSCULAR HGB 21.5 pg (27.0-31.0); MEAN CORPUSCULAR HGB CONC 27.8 g/dl (33.0-37.0); MEAN PLATELET VOLUME 10.7 fl (9.6-12.3); NUCLEATED RED BLOOD CELL 0.1 % (0.0-0.0); PLATELET COUNT AUTOMATED 341 10*3/uL (130-400); RED BLOOD COUNT 4.24 10*6/uL (4.10-5.10); RED CELL DISTRI WIDTH 22.6 % (0-14.5); WHITE BLOOD COUNT 25.6 10*3/uL (4.8-10.8)
[2016-10-08 11:27] LABS: ACANTHOCYTES FEW; ATYPICAL LYMPHS 1 % (0-0); BURR CELLS FEW; MICROCYTOSIS SLIGHT; PLATELET SUFFICIENCY NORMAL (NORMAL); POLYCHROMASIA SLIGHT; SCHISTOCYTES FEW; TOTAL CELLS COUNTED 100 #CELLS
[2016-10-08 11:44] LABS: ACT PARTIAL THROMBO TIME 25.6 SECONDS (20.8-31.5)
[2016-10-08 11:48] LABS: ALBUMIN 2.6 gm/dl (3.1-4.5); ALKALINE PHOSPHATASE 101 U/L (45-117); BUN 10 mg/dl (7-24); CHLORIDE 101 mmol/L (98-107); CREATININE 1.02 mg/dL (0.55-1.02); MAGNESIUM 2.3 mg/dL (1.5-2.1); POTASSIUM 4.9 mmol/L (3.5-5.1); SGOT/AST 81 IU/L (3-35); SGPT/ALT 74 U/L (12-78); SODIUM 138 mmol/L (136-145); TOTAL PROTEIN 5.7 gm/dL (6.4-8.2)
[2016-10-08 11:50] LABS: TROPONIN I < 0.015 ng/ml (<0.045)
[2016-10-08 13:37] LABS: BILIRUBIN NEGATIVE (NEGATIVE); BLOOD TRACE-LYSED (NEGATIVE); CLARITY SL CLOUDY (CLEAR); COLOR YELLOW (YELLOW); GLUCOSE NEGATIVE (NEGATIVE); KETONE NEGATIVE (NEGATIVE); LEUKO ESTERASE NEGATIVE (NEGATIVE); NITRITE NEGATIVE (NEGATIVE); SPECIFIC GRAVITY >= 1.030 (1.005-1.030); UROBILINOGEN 0.2 E.U./dl (0.2-1.0)
[2016-10-08 14:23] LABS: WBC 0-2 wbc/hpf (0-5)
[2016-10-08 17:51] LABS: ABG BASE EXCESS 4.6 mmol/L (-2.0-2.0); ABG O2 SATURATION 98.2 % (95-97); ARTERIAL BLOOD GAS PCO2 53.5 mmHg (35-45); ARTERIAL BLOOD GAS PH 7.368 (7.35-7.45)
[2016-10-09] VITALS (10 sets, daily range): BP systolic 102–139; BP diastolic 50–63
[2016-10-09 05:41] LABS: BASO % 0.1 % (0.0-1.0); EOS # 0.2 10*3/uL (0.0-0.4); EOS % 1.1 % (1.0-4.0); HEMOGLOBIN 7.6 g/dl (12.0-16.0); LYMPH # 1.6 10*3/uL (1.3-4.4); LYMPH % 9.3 % (27.0-41.0); MEAN CORPUSCULAR HGB 21.2 pg (27.0-31.0); MEAN CORPUSCULAR HGB CONC 28.7 g/dl (33.0-37.0); MEAN PLATELET VOLUME 9.3 fl (9.6-12.3); MONO # 1.1 10*3/uL (0.1-1.0); MONO % 6.2 % (3.0-9.0); NEUT # 14.4 10*3/uL (2.3-7.9); NEUT % 82.5 % (47.0-73.0); PLATELET COUNT AUTOMATED 293 10*3/uL (130-400); RED BLOOD COUNT 3.59 10*6/uL (4.10-5.10); RED CELL DISTRI WIDTH 22.2 % (0-14.5); WHITE BLOOD COUNT 17.5 10*3/uL (4.8-10.8)
[2016-10-09 05:42] LABS: HEMATOCRIT 26.5 % (37.0-47.0); MEAN CELL VOLUME 73.8 fl (81.0-99.0)
[2016-10-09 05:54] LABS: ALBUMIN 2.5 gm/dl (3.1-4.5); BUN 12 mg/dl (7-24); CHLORIDE 99 mmol/L (98-107); MAGNESIUM 2.2 mg/dL (1.5-2.1); PHOSPHOROUS 3.7 mg/dL (2.5-4.9); SGOT/AST 50 IU/L (3-35); SGPT/ALT 65 U/L (12-78); SODIUM 137 mmol/L (136-145)
[2016-10-09 05:55] LABS: ALKALINE PHOSPHATASE 86 U/L (45-117); TOTAL PROTEIN 5.7 gm/dL (6.4-8.2)
[2016-10-09 08:00] LABS: ABG BASE EXCESS 5.3 mmol/L (-2.0-2.0); ABG HCO3 30.2 mmol/l (22-26); ARTERIAL BLOOD GAS PCO2 49.6 mmHg (35-45); ARTERIAL BLOOD GAS PH 7.402 (7.35-7.45)
[2016-10-09] MEDS ORDERED: ZOSYN 3.373.375 GM/5 IV (14:12)
[2016-10-09] MEDS ORDERED: MIDAZOLAM H IV (14:12)
[2016-10-09] MEDS ORDERED: VANCOMYCIN1 GM/250 M IV (14:12)
[2016-10-09] MEDS ORDERED: PROPOFOL10 MG/1 ML IV (14:12)
[2016-10-09] MEDS ORDERED: SLOW RELEASE I159 MG PO (14:12)
== END 2016-10-09 19:35 | disposition short-term general hospital (02) | DRG 208 ==
LOC: SDC 00:52 → ICCU 12:41 → SDC 14:45 → ICCU 10-05 12:41 → 5E 10-05 14:42 → ICCU 10-08 11:13
PROVIDERS: Internal Medicine; Internal Medicine Critical Care Medicine; Internal Medicine Hospice and Palliative Medicine; Registered Nurse; ADMIT Internal Medicine
PROC: 5A12012 Performance of Cardiac Output, Single, Manual (ICD-10-PCS; 2016-10-04)
PROC: B548ZZA Ultrasonography of Superior Vena Cava, Guidance (ICD-10-PCS; principal; 2016-10-08)
PROC: 02HV33Z Insertion of Infusion Device into Superior Vena Cava, Percutaneous Approach (ICD-10-PCS; principal; 2016-10-08)
PROC: 5A1945Z Respiratory Ventilation, 24-96 Consecutive Hours (ICD-10-PCS; principal; 2016-10-08)
PROC: 0BH17EZ Insertion of Endotracheal Airway into Trachea, Via Natural or Artificial Opening (ICD-10-PCS; principal; 2016-10-08)
DX: J95.811 Postprocedural pneumothorax (principal); I46.9 Cardiac arrest, cause unspecified; J96.01 Acute respiratory failure with hypoxia; E87.2 Acidosis; R65.10 Systemic inflammatory response syndrome (SIRS) of non-infectious origin without acute organ dysfunction; E44.0 Moderate protein-calorie malnutrition; E83.41 Hypermagnesemia; E83.51 Hypocalcemia; F17.210 Nicotine dependence, cigarettes, uncomplicated; I10 Essential (primary) hypertension; D50.9 Iron deficiency anemia, unspecified; D72.829 Elevated white blood cell count, unspecified; J44.9 Chronic obstructive pulmonary disease, unspecified; R74.8 Abnormal levels of other serum enzymes; R74.0 Nonspecific elevation of levels of transaminase and lactic acid dehydrogenase [LDH]; R73.9 Hyperglycemia, unspecified; I73.9 Peripheral vascular disease, unspecified; F32.9 Major depressive disorder, single episode, unspecified; I25.10 Atherosclerotic heart disease of native coronary artery without angina pectoris; D47.3 Essential (hemorrhagic) thrombocythemia; R91.1 Solitary pulmonary nodule; W19.XXXA Unspecified fall, initial encounter; Z79.899 Other long term (current) drug therapy; Z90.49 Acquired absence of other specified parts of digestive tract; Z90.711 Acquired absence of uterus with remaining cervical stump; Z82.49 Family history of ischemic heart disease and other diseases of the circulatory system; Y93.89 Activity, other specified; Y92.89 Other specified places as the place of occurrence of the external cause; Y99.8 Other external cause status

== ENCOUNTER → 2016-11-08 | Outpatient (CLI) | payer SELFPAY ==
[~2016-11-08] MED LIST changes: +MIDAZOLAM H IV; +PROPOFOL10 MG/1 ML IV; +SLOW RELEASE I159 MG PO; +VANCOMYCIN1 GM/250 M IV; +ZOSYN 3.373.375 GM/5 IV
== END | disposition home or self-care (01) ==
LOC: RESCLI 12:08
DX: J44.9 Chronic obstructive pulmonary disease, unspecified (principal); I25.119 Atherosclerotic heart disease of native coronary artery with unspecified angina pectoris; I46.9 Cardiac arrest, cause unspecified; J96.01 Acute respiratory failure with hypoxia; J95.811 Postprocedural pneumothorax; I10 Essential (primary) hypertension; F33.0 Major depressive disorder, recurrent, mild; I73.9 Peripheral vascular disease, unspecified; A31.9 Mycobacterial infection, unspecified; F17.200 Nicotine dependence, unspecified, uncomplicated

== ENCOUNTER → 2016-11-17 | Outpatient (CLI) | payer SELFPAY ==
[2016-11-17 11:16] LABS: BASO # 0.1 10*3/uL (0.0-0.1); BASO % 0.7 % (0.0-1.0); EOS # 0.5 10*3/uL (0.0-0.4); EOS % 4.6 % (1.0-4.0); HEMATOCRIT 37.6 % (37.0-47.0); HEMOGLOBIN 11.5 g/dl (12.0-16.0); LYMPH # 3.5 10*3/uL (1.3-4.4); LYMPH % 35.6 % (27.0-41.0); MEAN CELL VOLUME 80.3 fl (81.0-99.0); MEAN CORPUSCULAR HGB 24.6 pg (27.0-31.0); MEAN CORPUSCULAR HGB CONC 30.6 g/dl (33.0-37.0); MEAN PLATELET VOLUME 8.6 fl (9.6-12.3); MONO # 0.9 10*3/uL (0.1-1.0); MONO % 8.7 % (3.0-9.0); NEUT # 4.9 10*3/uL (2.3-7.9); NEUT % 50.2 % (47.0-73.0); PLATELET COUNT AUTOMATED 355 10*3/uL (130-400); RED BLOOD COUNT 4.68 10*6/uL (4.10-5.10); RED CELL DISTRI WIDTH 24.2 % (0-14.5); WHITE BLOOD COUNT 9.8 10*3/uL (4.8-10.8)
[2016-11-17 11:49] LABS: ALBUMIN 3.7 gm/dl (3.1-4.5); ALKALINE PHOSPHATASE 69 U/L (45-117); BUN 4 mg/dl (7-24); CHLORIDE 102 mmol/L (98-107); CREATININE 0.85 mg/dL (0.55-1.02); POTASSIUM 4.6 mmol/L (3.5-5.1); SGOT/AST 12 IU/L (3-35); SGPT/ALT 16 U/L (12-78); SODIUM 136 mmol/L (136-145); TOTAL PROTEIN 7.9 gm/dL (6.4-8.2)
== END | disposition home or self-care (01) ==
LOC: LAB 10:51
PROVIDERS: Nurse Practitioner Family
DX: A31.0 Pulmonary mycobacterial infection (principal)

== ENCOUNTER → 2016-12-06 | Outpatient (CLI) | payer SELFPAY | END | disposition home or self-care (01) | LOC: RESCLI 04:38 | DX: J44.9 Chronic obstructive pulmonary disease, unspecified (principal); I10 Essential (primary) hypertension; F33.0 Major depressive disorder, recurrent, mild; I73.9 Peripheral vascular disease, unspecified; A31.9 Mycobacterial infection, unspecified; I25.119 Atherosclerotic heart disease of native coronary artery with unspecified angina pectoris; I70.90 Unspecified atherosclerosis; E66.3 Overweight; Z99.81 Dependence on supplemental oxygen ==

== ENCOUNTER → 2016-12-28 | Outpatient (CLI) | payer SELFPAY ==
[2016-12-28 13:46] LABS: BASO # 0.1 10*3/uL (0.0-0.1); BASO % 0.7 % (0.0-1.0); EOS # 0.1 10*3/uL (0.0-0.4); EOS % 1.8 % (1.0-4.0); HEMOGLOBIN 10.5 g/dl (12.0-16.0); LYMPH % 41.3 % (27.0-41.0); MEAN CELL VOLUME 79.2 fl (81.0-99.0); MEAN CORPUSCULAR HGB 23.8 pg (27.0-31.0); MEAN PLATELET VOLUME 8.4 fl (9.6-12.3); MONO # 0.6 10*3/uL (0.1-1.0); MONO % 7.8 % (3.0-9.0); NEUT # 3.5 10*3/uL (2.3-7.9); NEUT % 48.1 % (47.0-73.0); PLATELET COUNT AUTOMATED 401 10*3/uL (130-400); RED BLOOD COUNT 4.42 10*6/uL (4.10-5.10); RED CELL DISTRI WIDTH 17.5 % (0-14.5); WHITE BLOOD COUNT 7.3 10*3/uL (4.8-10.8)
[2016-12-28 14:26] LABS: ALBUMIN 3.8 gm/dl (3.1-4.5); ALKALINE PHOSPHATASE 87 U/L (45-117); BUN 7 mg/dl (7-24); CHLORIDE 102 mmol/L (98-107); CREATININE 0.75 mg/dL (0.55-1.02); SGOT/AST 16 IU/L (3-35); SGPT/ALT 20 U/L (12-78); SODIUM 135 mmol/L (136-145); TOTAL PROTEIN 7.7 gm/dL (6.4-8.2)
== END | disposition home or self-care (01) ==
LOC: LAB 13:26
PROVIDERS: Nurse Practitioner Family
DX: A31.0 Pulmonary mycobacterial infection (principal)

== ENCOUNTER → 2017-01-03 | Outpatient (CLI) | payer SELFPAY | END | disposition home or self-care (01) | LOC: RESCLI 02:59 | DX: J44.9 Chronic obstructive pulmonary disease, unspecified (principal); I10 Essential (primary) hypertension; F33.0 Major depressive disorder, recurrent, mild; I73.9 Peripheral vascular disease, unspecified; A31.9 Mycobacterial infection, unspecified; I25.110 Atherosclerotic heart disease of native coronary artery with unstable angina pectoris; I70.90 Unspecified atherosclerosis; E66.3 Overweight; Z72.0 Tobacco use; Z71.6 Tobacco abuse counseling; Z99.81 Dependence on supplemental oxygen ==

== ENCOUNTER 2017-02-05 20:12 | Inpatient (IN) | payer SELFPAY ==
[~2017-02-05] VITALS: Ht 162.5 cm; Wt 72.7 kg
[2017-02-05 20:15] VITALS: BP 143/68
[2017-02-05] MEDS ORDERED: AMERINET CHOIC500 MG PO (20:21)
[2017-02-05] MEDS ORDERED: RIFADIN300 MG PO (20:21)
[2017-02-05 21:13] LABS: BASO # 0.1 10*3/uL (0.0-0.1); BASO % 0.7 % (0.0-1.0); EOS # 0.1 10*3/uL (0.0-0.4); EOS % 0.6 % (1.0-4.0); HEMATOCRIT 34.9 % (37.0-47.0); HEMOGLOBIN 10.5 g/dl (12.0-16.0); LYMPH # 3.5 10*3/uL (1.3-4.4); LYMPH % 38.2 % (27.0-41.0); MEAN CELL VOLUME 76.5 fl (81.0-99.0); MEAN CORPUSCULAR HGB CONC 30.1 g/dl (33.0-37.0); MEAN PLATELET VOLUME 8.9 fl (9.6-12.3); MONO # 0.8 10*3/uL (0.1-1.0); MONO % 8.4 % (3.0-9.0); NEUT # 4.7 10*3/uL (2.3-7.9); NEUT % 51.9 % (47.0-73.0); PLATELET COUNT AUTOMATED 428 10*3/uL (130-400); RED BLOOD COUNT 4.56 10*6/uL (4.10-5.10); RED CELL DISTRI WIDTH 15.7 % (0-14.5); WHITE BLOOD COUNT 9.1 10*3/uL (4.8-10.8)
[2017-02-05 21:29] LABS: ALBUMIN 3.7 gm/dl (3.1-4.5); ALKALINE PHOSPHATASE 85 U/L (45-117); BUN 11 mg/dl (7-24); CHLORIDE 102 mmol/L (98-107); POTASSIUM 4.3 mmol/L (3.5-5.1); SGOT/AST 27 IU/L (3-35); SGPT/ALT 19 U/L (12-78); SODIUM 138 mmol/L (136-145); TOTAL PROTEIN 7.6 gm/dL (6.4-8.2)
[2017-02-06 01:10] VITALS: BP 128/58
[2017-02-06] MEDS ORDERED: ADVAIR 250/501 EA INH (01:59)
[2017-02-06] MEDS ORDERED: MYAMBUTOL400 MG PO (02:01)
[2017-02-06] MEDS ORDERED: LISINOPRIL2.5 MG PO (02:02)
[2017-02-06 06:37] LABS: BASO # 0.1 10*3/uL (0.0-0.1); BASO % 0.4 % (0.0-1.0); EOS % 0.1 % (1.0-4.0); HEMATOCRIT 29.8 % (37.0-47.0); LYMPH # 1.4 10*3/uL (1.3-4.4); LYMPH % 10.7 % (27.0-41.0); MEAN CELL VOLUME 76.4 fl (81.0-99.0); MEAN CORPUSCULAR HGB 23.1 pg (27.0-31.0); MEAN CORPUSCULAR HGB CONC 30.2 g/dl (33.0-37.0); MEAN PLATELET VOLUME 8.9 fl (9.6-12.3); MONO # 0.8 10*3/uL (0.1-1.0); MONO % 6.1 % (3.0-9.0); NEUT # 10.4 10*3/uL (2.3-7.9); NEUT % 82.4 % (47.0-73.0); PLATELET COUNT AUTOMATED 346 10*3/uL (130-400); RED CELL DISTRI WIDTH 15.8 % (0-14.5); WHITE BLOOD COUNT 12.7 10*3/uL (4.8-10.8)
[2017-02-06 07:10] LABS: BUN 12 mg/dl (7-24); CHLORIDE 107 mmol/L (98-107); CHOLESTEROL 183 mg/dL (<200); CREATININE 0.79 mg/dL (0.55-1.02); HDL CHOLESTEROL 71 mg/dl (40-60); LDL CHOLESTEROL 102 mg/dL (9-159); POTASSIUM 4.4 mmol/L (3.5-5.1); SODIUM 140 mmol/L (136-145); TRIGLYCERIDES 51 mg/dl (<150); VLDL CHOLESTEROL 10 mg/dL (6-40)
[2017-02-06 07:16] LABS: THYROID STIM HORMONE (HS) 0.495 uIU/ml (0.358-4.75)
[2017-02-06 08:00] VITALS: BP 128/56
[2017-02-06 08:25] LABS: VITAMIN D, 25-HYDROXY 23.9 ng/mL (30-100)
[2017-02-06 12:00] VITALS: BP 129/57
[2017-02-06 16:00] VITALS: BP 112/50
[2017-02-06 20:00] VITALS: BP 108/52; BP 113/41
[2017-02-07] VITALS: BP 128/50
[2017-02-07 06:15] LABS: BASO % 0.5 % (0.0-1.0); EOS # 0.2 10*3/uL (0.0-0.4); EOS % 2.7 % (1.0-4.0); HEMATOCRIT 26.5 % (37.0-47.0); HEMOGLOBIN 7.8 g/dl (12.0-16.0); LYMPH # 1.6 10*3/uL (1.3-4.4); LYMPH % 19.6 % (27.0-41.0); MEAN CELL VOLUME 78.2 fl (81.0-99.0); MEAN CORPUSCULAR HGB CONC 29.4 g/dl (33.0-37.0); MEAN PLATELET VOLUME 9.2 fl (9.6-12.3); MONO # 0.5 10*3/uL (0.1-1.0); MONO % 6.1 % (3.0-9.0); NEUT # 5.7 10*3/uL (2.3-7.9); NEUT % 70.7 % (47.0-73.0); PLATELET COUNT AUTOMATED 296 10*3/uL (130-400); RED BLOOD COUNT 3.39 10*6/uL (4.10-5.10); RED CELL DISTRI WIDTH 15.9 % (0-14.5)
[2017-02-07 06:28] LABS: ALBUMIN 2.8 gm/dl (3.1-4.5); ALKALINE PHOSPHATASE 59 U/L (45-117); BUN 6 mg/dl (7-24); CHLORIDE 110 mmol/L (98-107); CREATININE 0.65 mg/dL (0.55-1.02); POTASSIUM 4.1 mmol/L (3.5-5.1); SGOT/AST 11 IU/L (3-35); SGPT/ALT 16 U/L (12-78); SODIUM 142 mmol/L (136-145); TOTAL PROTEIN 5.6 gm/dL (6.4-8.2)
[2017-02-07 08:00] VITALS: BP 105/50
[2017-02-07 12:00] VITALS: BP 110/40
[2017-02-07 16:00] VITALS: BP 134/50
[2017-02-07 20:00] VITALS: BP 104/48
[2017-02-08] VITALS: BP 135/64
[2017-02-08 06:29] LABS: BASO % 0.5 % (0.0-1.0); EOS # 0.2 10*3/uL (0.0-0.4); EOS % 2.9 % (1.0-4.0); HEMATOCRIT 27.1 % (37.0-47.0); HEMOGLOBIN 8.1 g/dl (12.0-16.0); LYMPH # 1.7 10*3/uL (1.3-4.4); LYMPH % 21.7 % (27.0-41.0); MEAN CELL VOLUME 79.2 fl (81.0-99.0); MEAN CORPUSCULAR HGB 23.7 pg (27.0-31.0); MEAN CORPUSCULAR HGB CONC 29.9 g/dl (33.0-37.0); MONO # 0.8 10*3/uL (0.1-1.0); MONO % 9.6 % (3.0-9.0); NEUT # 5.1 10*3/uL (2.3-7.9); NEUT % 64.9 % (47.0-73.0); PLATELET COUNT AUTOMATED 310 10*3/uL (130-400); RED BLOOD COUNT 3.42 10*6/uL (4.10-5.10); WHITE BLOOD COUNT 7.9 10*3/uL (4.8-10.8)
[2017-02-08 07:05] LABS: BUN 9 mg/dl (7-24); CHLORIDE 106 mmol/L (98-107); CREATININE 0.76 mg/dL (0.55-1.02); POTASSIUM 4.7 mmol/L (3.5-5.1); SODIUM 143 mmol/L (136-145)
[2017-02-08 08:00] VITALS: BP 118/50
[2017-02-08 12:00] VITALS: BP 134/63
[2017-02-08 16:00] VITALS: BP 115/54
[2017-02-08 20:00] VITALS: BP 124/58
[2017-02-09] VITALS: BP 128/59
[2017-02-09 07:00] LABS: BASO % 0.4 % (0.0-1.0); EOS # 0.1 10*3/uL (0.0-0.4); EOS % 1.7 % (1.0-4.0); HEMATOCRIT 27.4 % (37.0-47.0); HEMOGLOBIN 8.2 g/dl (12.0-16.0); LYMPH # 1.2 10*3/uL (1.3-4.4); LYMPH % 14.6 % (27.0-41.0); MEAN CELL VOLUME 76.8 fl (81.0-99.0); MEAN CORPUSCULAR HGB CONC 29.9 g/dl (33.0-37.0); MEAN PLATELET VOLUME 9.3 fl (9.6-12.3); MONO # 0.6 10*3/uL (0.1-1.0); NEUT # 6.2 10*3/uL (2.3-7.9); NEUT % 75.9 % (47.0-73.0); PLATELET COUNT AUTOMATED 316 10*3/uL (130-400); RED BLOOD COUNT 3.57 10*6/uL (4.10-5.10); RED CELL DISTRI WIDTH 15.9 % (0-14.5); WHITE BLOOD COUNT 8.2 10*3/uL (4.8-10.8)
[2017-02-09 07:41] LABS: BUN 11 mg/dl (7-24); CHLORIDE 105 mmol/L (98-107); PHOSPHOROUS 4.3 mg/dL (2.5-4.9); POTASSIUM 4.1 mmol/L (3.5-5.1); SODIUM 141 mmol/L (136-145)
[2017-02-09 08:00] VITALS: BP 118/56
[2017-02-09 12:00] VITALS: BP 134/56
[2017-02-09 15:53] VITALS: BP 138/64
[2017-02-09 20:00] VITALS: BP 139/62
[2017-02-10] VITALS: BP 123/50
[2017-02-10 06:23] LABS: BASO % 0.5 % (0.0-1.0); EOS # 0.1 10*3/uL (0.0-0.4); EOS % 1.3 % (1.0-4.0); HEMATOCRIT 27.2 % (37.0-47.0); HEMOGLOBIN 8.1 g/dl (12.0-16.0); LYMPH # 1.3 10*3/uL (1.3-4.4); LYMPH % 14.6 % (27.0-41.0); MEAN CELL VOLUME 78.2 fl (81.0-99.0); MEAN CORPUSCULAR HGB 23.3 pg (27.0-31.0); MEAN CORPUSCULAR HGB CONC 29.8 g/dl (33.0-37.0); MEAN PLATELET VOLUME 9.3 fl (9.6-12.3); MONO # 0.7 10*3/uL (0.1-1.0); MONO % 7.9 % (3.0-9.0); NEUT # 6.6 10*3/uL (2.3-7.9); NEUT % 75.2 % (47.0-73.0); PLATELET COUNT AUTOMATED 329 10*3/uL (130-400); RED BLOOD COUNT 3.48 10*6/uL (4.10-5.10); WHITE BLOOD COUNT 8.7 10*3/uL (4.8-10.8)
[2017-02-10 08:00] VITALS: BP 116/45
[2017-02-10 12:00] VITALS: BP 124/55
[2017-02-10] MEDS ORDERED: MUCINEX1200 M1 PO (13:50)
[2017-02-10] MEDS ORDERED: TESSALON PERLE100 MG PO (13:50)
[2017-02-10] MEDS ORDERED: AZITHROMYCIN500 M2 PO (13:53)
[2017-02-10] MEDS ORDERED: PREDNISONE10 MG PO (13:54)
[2017-02-10 16:00] VITALS: BP 126/57
[2017-02-10 20:00] VITALS: BP 136/58
[2017-02-11] VITALS: BP 128/62
[2017-02-11 08:00] VITALS: BP 126/50
== END 2017-02-11 11:00 | disposition home or self-care (01) | DRG 871 ==
LOC: ED 20:12 → 4E 22:03 → EDHOLD 22:03 → 4E 22:43
PROVIDERS: Internal Medicine; Internal Medicine Nephrology; Physician Assistant; Student in an Organized Health Care Education/Training Program
DX: A41.9 Sepsis, unspecified organism (principal); J18.9 Pneumonia, unspecified organism; J96.01 Acute respiratory failure with hypoxia; E87.2 Acidosis; R65.20 Severe sepsis without septic shock; J44.9 Chronic obstructive pulmonary disease, unspecified; I73.9 Peripheral vascular disease, unspecified; I25.10 Atherosclerotic heart disease of native coronary artery without angina pectoris; R73.9 Hyperglycemia, unspecified; F32.9 Major depressive disorder, single episode, unspecified; F17.210 Nicotine dependence, cigarettes, uncomplicated; I10 Essential (primary) hypertension; R91.1 Solitary pulmonary nodule; Z79.82 Long term (current) use of aspirin; Z79.899 Other long term (current) drug therapy; Z90.710 Acquired absence of both cervix and uterus; Z93.0 Tracheostomy status; Z82.49 Family history of ischemic heart disease and other diseases of the circulatory system; Z83.3 Family history of diabetes mellitus; Z71.6 Tobacco abuse counseling

== ENCOUNTER 2017-02-15 18:28 | Inpatient (IN) | payer SELFPAY ==
[~2017-02-15] VITALS: Ht 162.5 cm; Wt 73.2 kg
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
--- NOTE | ~2017-02-15 | PR ---
[place], [place] [facility]GRESS NOTE [id number] UN[facility] #: [id number] ROOM: 529 DOCTOR: WOOD AUGUSTINE MD,KJ BIRTHDATE: [birth year] DOS: 02/18/2017 SUBJECTIVE: She has been n.p.o. past midnight and noted severe persistent nonproductive cough. The patient without any sputum expectoration. Denies symptoms of chest pain. Denies any new symptoms of chest pain. Chest pain was described in the rib with severe cough and ineffective sputum expectoration. Denies symptoms of hemoptysis. The patient denies any edema in lower extremities, no symptoms, no nausea, vomiting. She is currently noted n.p.o. past midnight for bronchoscopy that was planned to be done today. OBJECTIVE: VITAL SIGNS: Recorded shows temperature noted as normal. Respiratory rate recorded as 20-18, respiratory rate noted as 18, heart rate of 92, blood pressure 146/67. Pulse oxygen saturation recorded as 99% on 2 liter nasal cannula. HEENT: No acute changes. NECK: Supple. Head was atraumatic, scarring from the past tracheostomy. CARDIOVASCULAR: S1, S2 is audible. LUNGS: Noted diffuse reduced breath sounds with expiratory wheezing, remains unchanged. ABDOMEN: Soft. Moderate obesity. Bowel sounds present without any tenderness. EXTREMITIES: The patient was noted without any edema, clubbing or cyanosis. CENTRAL NERVOUS SYSTEM: Cranial nerves 2-12 intact. SKIN: No lesions or rashes. MUSCULOSKELETAL: No acute deformities. LABORATORY DATA: CBC this morning: WBC count normal, platelet count noted mildly elevated 404,000, hemoglobin 9.3, hematocrit 31.6. CMP: Glucose 103, BUN 19, creatinine normal. Cultures of the blood from the 02/16/2017, preliminary showed no bacterial growth, final culture result remains pending. IMPRESSION: 1. Persistent ongoing acute severe exacerbation of chronic obstructive pulmonary disease, tracheobronchitis. 2. History of recurrent nicotine use and nicotine dependence. 3. 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 4. Chronic obesity. 5. Past tracheostomy, decannulation. PLAN OF MANAGEMENT: Proceed with the bronchoscopy. Continuation of the corticosteroids, use bronchodilators, oxygen supplementation, nicotine replacement therapy, other plan of management. Continue Zithromax and ethambutol 3 times a week as well as Levaquin. Usual care, other plan of management and treatments. [place], [place] PROGRESS NOTE NAME: TACO MIRELES UNIT #: [id number] ROOM: 529 DOCTOR: KJ PENN MD BIRTHDATE: [birth year] KJ MUIR MD CM:PNTRANS 1510 2 KJ AUGUSTINE MD 02/19/17202 interface
--- NOTE | ~2017-02-15 | PR ---
[place], [place] PROGRESS NOTE NAME: TACO MIRELES UNIT #: [id number] ROOM: 529 DOCTOR: KJ PENN MD BIRTHDATE: [birth year] DOS: 02/19/2017 SUBJECTIVE: The patient has not been reported any ongoing acute respiratory complaints at this time. The bronchoscopy done yesterday marked improvement in the respiratory symptom noted including wheezing, shortness of breath and excessive severe cough. Chest for the patient has been improving with reduction of cough. OBJECTIVE: VITAL SIGNS: Normal temperature, respiratory rate 20, heart rate 83, blood pressure 125/59. The pulse oxygen saturation on 2 liters nasal cannula 98% saturation. HEENT: Moderate obesity. NECK: Supple. Head was atraumatic. CARDIOVASCULAR: S1, S2 audible. LUNGS: The patient noted without any wheezing at this time. Mild decreased breath sounds bilaterally. ABDOMEN: Soft, nontender. EXTREMITIES: Without any edema. LABORATORY DATA: The preliminary culture of the bronchial washing the patient noted as normal orion. Gram stain many, white blood cell few, gram-positive cocci in pairs and chains. IMPRESSION: Marked improvement of the patient has been noted. The patient with acute respiratory symptoms, also improvement in the wheezing, stressful therapy bronchoscopy, resolving acute exacerbation of chronic obstructive pulmonary disease. History of chronic nicotine dependence. PLAN OF TREATMENT: The patient will be recommended about abstinence for the tobacco use, use of the home medication for the patient regularly for the COPD management and other treatment as advised. Discharge planning was discussed with the patient's primary care attending, Dr. Moe Giles. Outpatient assessment couple of weeks postdischarge was recommended. [place], [place] PROGRESS NOTE NAME: TACO MIRELES UNIT #: [id number] ROOM: 529 DOCTOR: KJ PENN MD BIRTHDATE: [birth year] KJ MUIR MD CM:PNTRANS 1359 [id number] KJ AUGUSTINE MD 02/20/17 0028 interface
--- NOTE | ~2017-02-15 | PROC NOTE ---
[place], [place] PROCEDURE NOTE NAME: TACO MIRELES UNIT #: [id number] ROOM: 529 DOCTOR: KJ PENN MD BIRTHDATE: [birth year] DOS: 02/18/2017 PREOPERATIVE DIAGNOSES: Severe ineffective cough to resolve sputum expectoration ongoing exacerbation of chronic obstructive pulmonary disease maximum medical therapy and the pain because of the ineffective cough without any sputum expectoration. POSTOPERATIVE DIAGNOSES: Severe ineffective cough to resolve sputum expectoration ongoing exacerbation of chronic obstructive pulmonary disease maximum medical therapy and the pain because of the ineffective cough without any sputum expectoration. PROCEDURE DESCRIPTION: Informed consent obtained for the patient. The patient was brought to the OR. Supine position was made. The patient received the sedation in the supine position. The sedation was provided by the anesthesia staff. After achieving proper sedation, airway introduced into the mouth. Bronchoscope advanced to the airway into laryngeal area. Epiglottis and vocal cord seen. Vocal cords, which were noted moving symmetrically with movement bilaterally. The bronchoscope advanced to vocal cord and tracheal lumen post-tracheostomy findings were noted. The patient with the interior scarring ____ in the upper part of the trachea anteriorly. Moderate amount of thick mucus secretion present, which were suctioned out with the help of normal saline wash. The homer noted sharp. Right upper, right middle, right lower, left upper lobe, lingular lower bronchi were all examined. The patient was noted with thick plugs of the mucus which were present in endobronchial tree bilaterally. The patient cleared out with help of normal saline wash and sent for cultures. Procedure was well tolerated by the patient without difficulty. Postoperative findings were discussed with the patient's in detail in the recovery room after the completion of the procedure. At this time, no major change in treatment will be necessary. The culture will be monitored. The changes in the medical management will be done based on the culture results. All the appropriate cultures was sent to the lab. KJ MUIR MD CM:PROCNOTE:PROCEDURE NOTE 1513 0210 KJ AUGUSTINE MD
--- NOTE | ~2017-02-15 | EKG ---
[place], [place] ELECTROCARDIOGRAM REPORT NAME: TACO MIRELES UNIT #: [id number] ROOM: 529 DOCTOR: WOOD AUGUSTINE MD,KJ BIRTHDATE: [birth year] DOS: 02/17/2017 TIME: Done at 01:53 p.m. Normal sinus rhythm noted. Heart rate of 81 beats per minute with nonspecific ST-T changes. KJ MUIR MD CM:EKGRPT:ELECTROCARDIOGRAM REPORT 1939 KJ UAGUSTINE MD
--- NOTE | ~2017-02-15 | PR ---
[place], [place] PROGRESS NOTE NAME: TACO MIRELES UNIT #: [id number] ROOM: 529 DOCTOR: KJ PENN MD BIRTHDATE: [birth year] DOS: 02/17/2017 SUBJECTIVE: She was noted quite comfortable, still noted severe episodic cough, which remains completely dry. Denies any symptoms of chest pain or shortness breath. The patient had wheezing. The patient described pain in the rib cage with cough at times. She has not been noted symptoms of chest pain. She stated that she has not been feeling much well. OBJECTIVE: VITAL SIGNS: Normal temperature, respiratory rate 18, heart rate 80, and blood pressure 112/56. Pulse oxygen saturation on 2 liters nasal cannula 98% saturation. HEENT: Shows no acute change. NECK: Supple. CARDIOVASCULAR: S1, S2 audible. LUNGS: Noted with moderate expiratory wheezing without any crackles. ABDOMEN: Soft, obese, nontender. EXTREMITIES: Without any edema. LABORATORY DATA: CBC: Platelet count was elevated at 406,000, hemoglobin 9.1, hematocrit 30.2, and WBC count normal. CMP this morning, BUN and creatinine normal. Remaining CMP was normal. IMPRESSION: 1. 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 The patient treated with triple antibiotic therapy. 2. Chronic obesity. 3. History of nicotine dependence. PLAN OF MANAGEMENT: For the severe nonresolving cough, persistent illness, bronchoscopy was planned to be done tomorrow morning; n.p.o. past midnight status was ordered. His bronchoscopy will be considered therapeutic. All other supportive plan of management and care at this time as previously in progress. [place], [place] PROGRESS NOTE NAME: TACO MIRELES UNIT #: [id number] ROOM: 529 DOCTOR: KJ PENN MD BIRTHDATE: [birth year] KJ MUIR MD CM:PNTRANS 1237 1629 KJ AUGUSTINE MD 02/17/17 1629 interface
[~2017-02-15 18:28] MED LIST changes: +AMERINET CHOIC500 MG PO; +AZITHROMYCIN500 M2 PO; +LISINOPRIL2.5 MG PO; +MUCINEX1200 M1 PO; +MYAMBUTOL400 MG PO; +RIFADIN300 MG PO; +TESSALON PERLE100 MG PO
[2017-02-15 18:33] VITALS: BP 126/56
[2017-02-15 19:52] LABS: HEMATOCRIT 35.6 % (37.0-47.0); HEMOGLOBIN 10.5 g/dl (12.0-16.0); MEAN CELL VOLUME 75.9 fl (81.0-99.0); MEAN CORPUSCULAR HGB 22.4 pg (27.0-31.0); MEAN CORPUSCULAR HGB CONC 29.5 g/dl (33.0-37.0); MEAN PLATELET VOLUME 8.8 fl (9.6-12.3); PLATELET COUNT AUTOMATED 444 10*3/uL (130-400); RED BLOOD COUNT 4.69 10*6/uL (4.10-5.10); RED CELL DISTRI WIDTH 16.2 % (0-14.5); WHITE BLOOD COUNT 15.4 10*3/uL (4.8-10.8)
[2017-02-15 20:09] LABS: ALBUMIN 3.8 gm/dl (3.1-4.5); ALKALINE PHOSPHATASE 80 U/L (45-117); BUN 16 mg/dl (7-24); CHLORIDE 99 mmol/L (98-107); CREATININE 0.88 mg/dL (0.55-1.02); POTASSIUM 4.3 mmol/L (3.5-5.1); SGOT/AST 21 IU/L (3-35); SGPT/ALT 39 U/L (12-78); SODIUM 134 mmol/L (136-145); TOTAL PROTEIN 7.7 gm/dL (6.4-8.2)
[2017-02-15 20:10] LABS: TROPONIN I < 0.015 ng/ml (<0.045)
[2017-02-15 20:12] LABS: BASOPHILS 3 % (0-1); PLATELET SUFFICIENCY HIGH (NORMAL); TOTAL CELLS COUNTED 100 #CELLS
[2017-02-15 20:13] LABS: MICROCYTOSIS SLIGHT; POLYCHROMASIA SLIGHT
[2017-02-15 20:14] LABS: OVALOCYTES FEW
[2017-02-15 20:15] LABS: TARGET CELLS FEW
[2017-02-15 20:16] LABS: TOXIC GRANULATION SLIGHT
[2017-02-15 20:48] VITALS: BP 132/64
[2017-02-15 21:52] VITALS: BP 137/57
[2017-02-15 22:15] VITALS: BP 143/63
[2017-02-15] MEDS ORDERED: LOW DOSE ASPIRI81 M1 PO (22:23)
[2017-02-15 22:50] VITALS: BP 143/63
[2017-02-16] VITALS: BP 127/60; BP 140/59
[2017-02-16 04:00] VITALS: BP 122/51
[2017-02-16 06:16] LABS: BASO # 0.1 10*3/uL (0.0-0.1); BASO % 0.6 % (0.0-1.0); EOS % 0.2 % (1.0-4.0); HEMATOCRIT 29.8 % (37.0-47.0); LYMPH # 2.5 10*3/uL (1.3-4.4); LYMPH % 22.6 % (27.0-41.0); MEAN CELL VOLUME 75.6 fl (81.0-99.0); MEAN CORPUSCULAR HGB 22.8 pg (27.0-31.0); MEAN CORPUSCULAR HGB CONC 30.2 g/dl (33.0-37.0); MEAN PLATELET VOLUME 8.4 fl (9.6-12.3); NEUT # 7.4 10*3/uL (2.3-7.9); NEUT % 67.1 % (47.0-73.0); PLATELET COUNT AUTOMATED 400 10*3/uL (130-400); RED BLOOD COUNT 3.94 10*6/uL (4.10-5.10); RED CELL DISTRI WIDTH 16.2 % (0-14.5); WHITE BLOOD COUNT 11.1 10*3/uL (4.8-10.8)
[2017-02-16 06:52] LABS: ALBUMIN 3.1 gm/dl (3.1-4.5); ALKALINE PHOSPHATASE 63 U/L (45-117); BUN 14 mg/dl (7-24); CHLORIDE 102 mmol/L (98-107); CHOLESTEROL 190 mg/dL (<200); CREATININE 0.74 mg/dL (0.55-1.02); HDL CHOLESTEROL 78 mg/dl (40-60); LDL CHOLESTEROL 98 mg/dL (9-159); PHOSPHOROUS 4.1 mg/dL (2.5-4.9); POTASSIUM 4.3 mmol/L (3.5-5.1); SGOT/AST 10 IU/L (3-35); SGPT/ALT 32 U/L (12-78); SODIUM 136 mmol/L (136-145); TOTAL PROTEIN 6.5 gm/dL (6.4-8.2); TRIGLYCERIDES 72 mg/dl (<150); VLDL CHOLESTEROL 14 mg/dL (6-40)
[2017-02-16 06:57] LABS: THYROID STIM HORMONE (HS) 0.805 uIU/ml (0.358-4.75)
[2017-02-16 08:00] VITALS: BP 139/54
[2017-02-16 08:09] LABS: VITAMIN D, 25-HYDROXY 23.1 ng/mL (30-100)
[2017-02-16 12:00] VITALS: BP 127/52
[2017-02-16 13:05] LABS: BILIRUBIN NEGATIVE (NEGATIVE); BLOOD NEGATIVE (NEGATIVE); CLARITY CLEAR (CLEAR); COLOR YELLOW (YELLOW); GLUCOSE NEGATIVE (NEGATIVE); KETONE NEGATIVE (NEGATIVE); LEUKO ESTERASE NEGATIVE (NEGATIVE); NITRITE NEGATIVE (NEGATIVE); PH 6.5 (5.0-9.0); UROBILINOGEN 0.2 E.U./dl (0.2-1.0)
[2017-02-16 13:20] LABS: WBC 0-2 wbc/hpf (0-5)
[2017-02-16 16:00] VITALS: BP 133/51
[2017-02-16 20:00] VITALS: BP 118/85
[2017-02-17] VITALS: BP 121/50
[2017-02-17 06:36] LABS: BASO # 0.1 10*3/uL (0.0-0.1); BASO % 0.9 % (0.0-1.0); EOS % 0.4 % (1.0-4.0); HEMATOCRIT 30.2 % (37.0-47.0); HEMOGLOBIN 9.1 g/dl (12.0-16.0); LYMPH # 2.4 10*3/uL (1.3-4.4); LYMPH % 28.7 % (27.0-41.0); MEAN CELL VOLUME 76.3 fl (81.0-99.0); MEAN CORPUSCULAR HGB CONC 30.1 g/dl (33.0-37.0); MEAN PLATELET VOLUME 8.9 fl (9.6-12.3); MONO # 1.1 10*3/uL (0.1-1.0); MONO % 13.1 % (3.0-9.0); NEUT # 4.8 10*3/uL (2.3-7.9); NEUT % 56.4 % (47.0-73.0); PLATELET COUNT AUTOMATED 406 10*3/uL (130-400); RED BLOOD COUNT 3.96 10*6/uL (4.10-5.10); RED CELL DISTRI WIDTH 16.2 % (0-14.5); WHITE BLOOD COUNT 8.5 10*3/uL (4.8-10.8)
[2017-02-17 07:10] LABS: ALBUMIN 3.2 gm/dl (3.1-4.5); ALKALINE PHOSPHATASE 67 U/L (45-117); BUN 10 mg/dl (7-24); CHLORIDE 101 mmol/L (98-107); CREATININE 0.65 mg/dL (0.55-1.02); POTASSIUM 4.3 mmol/L (3.5-5.1); SGOT/AST 12 IU/L (3-35); SGPT/ALT 28 U/L (12-78); SODIUM 138 mmol/L (136-145); TOTAL PROTEIN 6.7 gm/dL (6.4-8.2)
[2017-02-17 08:00] VITALS: BP 107/50
[2017-02-17 12:00] VITALS: BP 112/56
[2017-02-17 16:00] VITALS: BP 127/45
[2017-02-17 20:00] VITALS: BP 118/46
[2017-02-18] VITALS (9 sets, daily range): BP systolic 115–152; BP diastolic 42–72
[2017-02-18 06:49] LABS: BASO # 0.1 10*3/uL (0.0-0.1); BASO % 0.5 % (0.0-1.0); EOS % 0.1 % (1.0-4.0); HEMATOCRIT 31.6 % (37.0-47.0); HEMOGLOBIN 9.3 g/dl (12.0-16.0); LYMPH # 3.2 10*3/uL (1.3-4.4); LYMPH % 33.7 % (27.0-41.0); MEAN CORPUSCULAR HGB 22.4 pg (27.0-31.0); MEAN CORPUSCULAR HGB CONC 29.4 g/dl (33.0-37.0); MEAN PLATELET VOLUME 8.8 fl (9.6-12.3); MONO # 0.8 10*3/uL (0.1-1.0); MONO % 8.8 % (3.0-9.0); NEUT # 5.3 10*3/uL (2.3-7.9); NEUT % 56.3 % (47.0-73.0); PLATELET COUNT AUTOMATED 404 10*3/uL (130-400); RED BLOOD COUNT 4.16 10*6/uL (4.10-5.10); RED CELL DISTRI WIDTH 16.2 % (0-14.5); WHITE BLOOD COUNT 9.4 10*3/uL (4.8-10.8)
[2017-02-18 06:57] LABS: ALBUMIN 3.3 gm/dl (3.1-4.5); ALKALINE PHOSPHATASE 70 U/L (45-117); BUN 10 mg/dl (7-24); CHLORIDE 99 mmol/L (98-107); CREATININE 0.79 mg/dL (0.55-1.02); POTASSIUM 4.4 mmol/L (3.5-5.1); SGOT/AST 14 IU/L (3-35); SGPT/ALT 30 U/L (12-78); SODIUM 137 mmol/L (136-145); TOTAL PROTEIN 7.1 gm/dL (6.4-8.2)
[2017-02-19] VITALS: BP 108/45
[2017-02-19 08:00] VITALS: BP 100/60; BP 97/60
[2017-02-19 12:00] VITALS: BP 125/59
[2017-02-19] MEDS ORDERED: PREDNISONE10 MG PO (12:02)
[2017-02-19 16:08] LABS: ACID FAST SMEAR Negative (.); ACID FAST SPEC PROCESSING Concentration (.)
== END 2017-02-19 13:06 | disposition home or self-care (01) | DRG 871 ==
LOC: ED 18:28 → EDHOLD 21:38 → 5E 21:38
PROVIDERS: Emergency Medicine; Family Medicine; Hospitalist; Internal Medicine Critical Care Medicine
DX: A41.9 Sepsis, unspecified organism (principal); J18.9 Pneumonia, unspecified organism; Z93.0 Tracheostomy status; Z86.74 Personal history of sudden cardiac arrest; E87.1 Hypo-osmolality and hyponatremia; J44.0 Chronic obstructive pulmonary disease with (acute) lower respiratory infection; A31.0 Pulmonary mycobacterial infection; F17.210 Nicotine dependence, cigarettes, uncomplicated; D50.9 Iron deficiency anemia, unspecified; J44.1 Chronic obstructive pulmonary disease with (acute) exacerbation; J41.8 Mixed simple and mucopurulent chronic bronchitis; D47.3 Essential (hemorrhagic) thrombocythemia; I10 Essential (primary) hypertension; I25.10 Atherosclerotic heart disease of native coronary artery without angina pectoris; R91.1 Solitary pulmonary nodule; I73.9 Peripheral vascular disease, unspecified; J20.9 Acute bronchitis, unspecified; F32.9 Major depressive disorder, single episode, unspecified; R73.9 Hyperglycemia, unspecified; F41.9 Anxiety disorder, unspecified; E66.09 Other obesity due to excess calories; Z90.710 Acquired absence of both cervix and uterus; Z82.49 Family history of ischemic heart disease and other diseases of the circulatory system; Z79.899 Other long term (current) drug therapy; Z79.02 Long term (current) use of antithrombotics/antiplatelets; Z79.51 Long term (current) use of inhaled steroids; Z79.82 Long term (current) use of aspirin; Z90.721 Acquired absence of ovaries, unilateral; Z71.6 Tobacco abuse counseling; Z95.5 Presence of coronary angioplasty implant and graft; Z87.828 Personal history of other (healed) physical injury and trauma; Z83.3 Family history of diabetes mellitus; Z68.27 Body mass index [BMI] 27.0-27.9, adult

== ENCOUNTER → 2017-02-23 | Outpatient (CLI) | payer SELFPAY ==
[~2017-02-23] MED LIST changes: +LOW DOSE ASPIRI81 M1 PO
== END | disposition home or self-care (01) ==
LOC: RESCLI 02:12
DX: J44.9 Chronic obstructive pulmonary disease, unspecified (principal); F33.0 Major depressive disorder, recurrent, mild; A31.9 Mycobacterial infection, unspecified; F41.9 Anxiety disorder, unspecified; I25.10 Atherosclerotic heart disease of native coronary artery without angina pectoris; I11.9 Hypertensive heart disease without heart failure; Z72.0 Tobacco use

== ENCOUNTER → 2017-03-08 | Outpatient (CLI) | payer SELFPAY ==
[2017-03-08 09:59] LABS: BASO # 0.1 10*3/uL (0.0-0.1); BASO % 0.4 % (0.0-1.0); EOS # 0.3 10*3/uL (0.0-0.4); EOS % 2.7 % (1.0-4.0); HEMATOCRIT 33.3 % (37.0-47.0); HEMOGLOBIN 9.8 g/dl (12.0-16.0); LYMPH # 2.8 10*3/uL (1.3-4.4); LYMPH % 24.6 % (27.0-41.0); MEAN CELL VOLUME 74.5 fl (81.0-99.0); MEAN CORPUSCULAR HGB 21.9 pg (27.0-31.0); MEAN CORPUSCULAR HGB CONC 29.4 g/dl (33.0-37.0); MEAN PLATELET VOLUME 8.3 fl (9.6-12.3); MONO # 0.7 10*3/uL (0.1-1.0); NEUT # 7.5 10*3/uL (2.3-7.9); PLATELET COUNT AUTOMATED 435 10*3/uL (130-400); RED BLOOD COUNT 4.47 10*6/uL (4.10-5.10); RED CELL DISTRI WIDTH 16.8 % (0-14.5); WHITE BLOOD COUNT 11.4 10*3/uL (4.8-10.8)
[2017-03-08 10:23] LABS: ALBUMIN 3.3 gm/dl (3.1-4.5); BUN 8 mg/dl (7-24); CHLORIDE 104 mmol/L (98-107); POTASSIUM 4.7 mmol/L (3.5-5.1); SGOT/AST 15 IU/L (3-35); SGPT/ALT 20 U/L (12-78); SODIUM 137 mmol/L (136-145)
[2017-03-08 10:25] LABS: ALKALINE PHOSPHATASE 68 U/L (45-117); TOTAL PROTEIN 7.3 gm/dL (6.4-8.2)
== END ==
LOC: LAB 09:38
PROVIDERS: Nurse Practitioner Family
DX: A31.0 Pulmonary mycobacterial infection (principal)

== ENCOUNTER → 2017-04-15 | Outpatient (CLI) | payer SELFPAY ==
[2017-04-15 10:10] LABS: BASO # 0.1 10*3/uL (0.0-0.1); BASO % 0.8 % (0.0-1.0); EOS # 0.2 10*3/uL (0.0-0.4); EOS % 1.7 % (1.0-4.0); HEMATOCRIT 35.7 % (37.0-47.0); LYMPH # 3.4 10*3/uL (1.3-4.4); LYMPH % 38.9 % (27.0-41.0); MEAN CELL VOLUME 71.8 fl (81.0-99.0); MEAN CORPUSCULAR HGB 20.1 pg (27.0-31.0); MEAN PLATELET VOLUME 8.4 fl (9.6-12.3); MONO # 0.8 10*3/uL (0.1-1.0); MONO % 9.5 % (3.0-9.0); NEUT # 4.3 10*3/uL (2.3-7.9); NEUT % 48.8 % (47.0-73.0); PLATELET COUNT AUTOMATED 430 10*3/uL (130-400); RED BLOOD COUNT 4.97 10*6/uL (4.10-5.10); RED CELL DISTRI WIDTH 17.4 % (0-14.5); WHITE BLOOD COUNT 8.7 10*3/uL (4.8-10.8)
[2017-04-15 10:45] LABS: ALBUMIN 3.6 gm/dl (3.1-4.5); ALKALINE PHOSPHATASE 79 U/L (45-117); BUN 10 mg/dl (7-24); CHLORIDE 104 mmol/L (98-107); CREATININE 0.74 mg/dL (0.55-1.02); POTASSIUM 4.1 mmol/L (3.5-5.1); SGOT/AST 16 IU/L (3-35); SGPT/ALT 19 U/L (12-78); SODIUM 137 mmol/L (136-145); TOTAL PROTEIN 7.5 gm/dL (6.4-8.2)
== END | disposition home or self-care (01) ==
LOC: LAB 09:49
PROVIDERS: Nurse Practitioner Family
DX: A31.0 Pulmonary mycobacterial infection (principal)

== ENCOUNTER → 2017-04-27 | Outpatient (CLI) | payer SELFPAY ==
--- NOTE | ~2017-04-27 | PF ---
[place], [place] PULMONARY FUNCTION TEST NAME: TACO MIRELES UNIT #: [id number] ROOM: DOCTOR: WOOD AUGUSTINE MD,KJ BIRTHDATE: [birth year] DOS: 04/27/2017 ORDERED BY: Dr. Rhonda Mesa. HISTORY: The patient is a 62-year-old female, height of 64 inches, weight of 161 pounds. The patient reported symptoms of dyspnea with exertion with nonproductive cough. The patient was noted with chronic tobacco use, 1 pack of cigarettes per day actively for 45 years. SPIROMETRY: The FVC was recorded 2.23 liters, 67% predicted value, mildly decreased. FEV1 was noted 1.02 liters as 40% of predicted value. Ratio of FEV1/FVC postbronchodilator noted as 42%. No changes occurred postbronchodilator test. Flow volume loop was suggestive of obstructive airway pattern. The patient's lung diffusion without correction of carbon monoxide hemoglobin value was noted 24% that was severely decreased. FINAL IMPRESSION: The test is suggestive of evidence of severe COPD for this patient with the reduced lung diffusion as well. The patient is unable to perform the lung volumes or airway resistance test. KJ MUIR MD CM:PFREPORT:PULMONARY FUNCTION TEST 1021 KJ AUGUSTINE MD
== END | disposition home or self-care (01) ==
LOC: CP 06:51
DX: J44.9 Chronic obstructive pulmonary disease, unspecified (principal)

== ENCOUNTER 2017-06-15 18:01 | Inpatient (IN) | payer SELFPAY ==
[~2017-06-15] VITALS: Ht 167.6 cm; Wt 74.0 kg
--- NOTE | ~2017-06-15 | ST ---
[place], [place] EXERCISE STRESS TEST REPORT NAME: TACO MIRELES UNIT #: [id number] ROOM: 411 DOCTOR: DEDRICK DOW MD BIRTHDATE: [birth year] DOS: 06/17/2017 LEXISCAN CARDIOL[employer] STUDY Regadenoson was infused over a period of 10 seconds, 40 seconds later technetium 99 sestamibi was injected intravenously. She developed marked dyspnea following the injection of Lexiscan, but did not have any chest pain. With resting ECG maximum heart rate was 193 beats per minute and blood pressure 110/68. Resting ECG demonstrated normal sinus rhythm with T-wave inversion in inferior leads and minimal ST segment depression in V5 and V6. Following infusion of Lexiscan heart 0.[address] segment depression was seen in the inferior leads and minimal depression was seen in V5 and V6 as well. CONCLUSION: 1. She developed marked dyspnea following infusion of regadenoson. 2. Minimal ST segment depression following infusion of regadenoson, but did not meet criteria for ischemia. 3. Nuclear report will be rendered separately. DERDICK DOW MD CM:STRESS:EXERCISE STRESS TEST REPORT 0718 1435 DEDRICK DOW MD
--- NOTE | ~2017-06-15 | EKG ---
[place], [place] ELECTROCARDIOGRAM REPORT NAME: TACO MIRELES UNIT #: [id number] ROOM: 411 DOCTOR: DEDRICK DOW MD BIRTHDATE: [birth year] DOS: 06/17/2017 LEXISCAN CARDIOLITE STUDY Regadenoson was infused over a period of 10 seconds, 40 seconds later technetium 99 sestamibi was injected intravenously. She developed marked dyspnea following the injection of Lexiscan, but did not have any chest pain. With resting ECG maximum heart rate was 193 beats per minute and blood pressure 110/68. Resting ECG demonstrated normal sinus rhythm with T-wave inversion in inferior leads and minimal ST segment depression in V5 and V6. Following infusion of Lexiscan heart 0.[address] segment depression was seen in the inferior leads and minimal depression was seen in V5 and V6 as well. CONCLUSION: 1. She developed marked dyspnea following infusion of regadenoson. 2. Minimal ST segment depression following infusion of regadenoson, but did not meet criteria for ischemia. 3. Nuclear report will be rendered separately. DEDRICK DOW MD CM:EKGRPT:ELECTROCARDIOGRAM REPORT 0718 1435 DEDRICK DOW MD
--- NOTE | ~2017-06-15 | PR ---
[place], [place] PROGRESS NOTE NAME: TACO MIRELES UNIT #: [id number] ROOM: 411 DOCTOR: WOOD AUGUSTINE MD,KJ BIRTHDATE: [birth year] DOS: 06/17/2017 PULMONARY PROGRESS NOTE SUBJECTIVE: The patient was noted comfortable at this time without any acute distress. She was still noted symptoms of shortness of breath, coughing, or wheezing. The patient without any much pattern changer the last 24 hours. Continue steroids, bronchodilators, and other treatment. She was started on nicotine replacement patches yesterday as well. Solu-Medrol, the patient was given at this time 40 mg b.i.d. She was sitting on the bed, her present in the room with the patient. She denies any edema or pain of the lower extremities. Denies symptoms of nausea, vomiting, diarrhea, abdominal pain, dizziness or headache. Remaining systems were reviewed, they were noted all negative. OBJECTIVE: VITAL SIGNS: Normal temperature, respiratory rate 16-18, heart rate 73, 74, blood pressure 122/54 to 113/45. Pulse oxygen saturation was noted on 2 liters nasal cannula 98% saturation. HEENT: Head was atraumatic. Eyes nonicterus. NECK: Supple. Old tracheostomy scar tahir was noted in the neck. CARDIOVASCULAR: S1, S2 audible. LUNGS: Shows diffuse wheezing the patient noted in the lung, worsening from yesterday examination. ABDOMEN: Soft. Moderate obesity. Bowel sounds present. EXTREMITIES: Without any edema. SKIN: Visible skin, no lesions or rashes. MUSCULOSKELETAL SYMPTOMS: Without any acute deformities. LABORATORY DATA: CBC of the patient this morning: WBC count normal, hemoglobin 10.1, hematocrit 36.1, platelet count 393,000. BMP for the patient noted normal BUN and creatinine. IMPRESSION: 1. The patient with increased respiratory symptoms, wheezing with ongoing acute exacerbation of chronic obstructive pulmonary disease and acute bronchitis, whether viral or bacterial at this time unknown, viral panel was ordered for the patient, which remains pending. 2. The patient with chronic persistent nicotine abuse as well. 3. Moderate obesity. 4. History of Mycobacterium avium infection of the patient, which was noted in the lungs. PLAN OF MANAGEMENT: The patient would be continued on the oxygen supplementation, bronchodilators. Dose of the Solu-Medrol for the patient will be changed for the patient to 40 mg q.8h. Other supportive therapy, plan of management and care plan. Additional treatment changes to be made for this patient based on the progression of the illness. [place], [place] PROGRESS NOTE NAME: TACO MIRELES UNIT #: [id number] ROOM: [facility] DOCTOR: KJ PENN MD BIRTHDATE: [birth year] KJ MUIR MD CM:PNTRANS 1521 0445 KJ AUGUSTINE MD 06/18/17 0444 interface
--- NOTE | ~2017-06-15 | PR ---
[place], [place] PROGRESS NOTE NAME: TACO MIRELES UNIT #: [id number] ROOM: 411 DOCTOR: WOOD AUGUSTINE MD,KJ BIRTHDATE: [birth year] DOS: 06/18/2017 PULMONARY PROGRESS NOTE SUBJECTIVE: She has noted comfortable. Reduction in the coughing and the respiratory symptoms have been noted. Denies symptoms of chest pain or abdominal pain. Denies symptoms of nausea or vomiting. PHYSICAL EXAMINATION: VITAL SIGNS: The vital signs for the patient, which were recorded for the patient showed the temperature noted as normal, respiratory rate 20, heart rate 76, and blood pressure ____. The pulse oxygen saturation on 1 liter nasal cannula is 97% saturation. HEENT: Examination shows head was atraumatic. Eye nonicterus. NECK: Supple. CARDIOVASCULAR: S1, S2 audible. LUNGS: Noted without any wheeze or crackles. ABDOMEN: Soft, nontender. EXTREMITIES: Without any acute edema. IMPRESSION: Resolving acute exacerbation of chronic obstructive pulmonary disease, acute bronchitis, gradually. PLAN OF MANAGEMENT: No changes in the medical management of the patient were noted at the present time. Continue current plan of therapy. From pulmonary standpoint, could be discharged home tomorrow. Abnormal Cardiolite stress test noted, which will be further assessed. Follow the recommendation per Cardiology services. Discharge planning was discussed with Dr. Homer Menjivar for potential discharge home tomorrow morning from pulmonary standpoint. KJ MUIR MD CM:PNTRANS [id number] KJ AUGUSTINE MD 06/19/175 interface
--- NOTE | ~2017-06-15 | PR ---
[place], [place] PROGRESS NOTE NAME: TACO MIRELES UNIT #: [id number] ROOM: 411 DOCTOR: DEDRICK DOW MD BIRTHDATE: [birth year] DOS: 06/18/2017 SUBJECTIVE: She came with chest discomfort and a Lexiscan Cardiolite study was performed. It demonstrated apical lateral and apical ischemia. LV systolic function was normal. She is asymptomatic. Her appetite is fine. She has not been short of breath. No palpitation. PHYSICAL EXAMINATION: GENERAL: The patient is very pleasant, alert, oriented. VITAL SIGNS: Pulse is 76 and regular, blood pressure 110/48. NECK: Normal JVP. LUNGS: Reduced breath sounds with some adventitious sounds as previously noted. EXTREMITIES: No edema in the lower extremity. IMPRESSION: This patient with coronary artery disease, has a positive stress test. I think medicine therapy need to be intensified, isosorbide mononitrate 30 mg was started yesterday, which she has tolerated well. I saw this patient for Dr. Sethi. DEDRICK DOW MD CM:PNTRANS [id number] DEDRICK DOW MD 06/18/17 1208 interface
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
[2017-06-15 18:01] VITALS: BP 139/64
[~2017-06-15 18:01] MED LIST changes: -COZAAR25 M1 PO; -IMDUR SA30 MG PO; -LEVAQUIN500 M2 PO
[2017-06-15 18:20] LABS: BASO # 0.1 10*3/uL (0.0-0.1); BASO % 0.6 % (0.0-1.0); EOS # 0.2 10*3/uL (0.0-0.4); EOS % 1.4 % (1.0-4.0); HEMATOCRIT 34.5 % (37.0-47.0); HEMOGLOBIN 10.1 g/dl (12.0-16.0); LYMPH # 3.5 10*3/uL (1.3-4.4); MEAN CELL VOLUME 70.1 fl (81.0-99.0); MEAN CORPUSCULAR HGB 20.5 pg (27.0-31.0); MEAN CORPUSCULAR HGB CONC 29.3 g/dl (33.0-37.0); MEAN PLATELET VOLUME 8.9 fl (9.6-12.3); MONO # 0.9 10*3/uL (0.1-1.0); MONO % 8.3 % (3.0-9.0); NEUT # 6.2 10*3/uL (2.3-7.9); NEUT % 57.4 % (47.0-73.0); PLATELET COUNT AUTOMATED 387 10*3/uL (130-400); RED BLOOD COUNT 4.92 10*6/uL (4.10-5.10); RED CELL DISTRI WIDTH 19.1 % (0-14.5); WHITE BLOOD COUNT 10.8 10*3/uL (4.8-10.8)
[2017-06-15 18:30] LABS: ACT PARTIAL THROMBO TIME 26.2 SECONDS (20.8-31.5)
[2017-06-15 18:38] LABS: ALBUMIN 3.7 gm/dl (3.1-4.5); ALKALINE PHOSPHATASE 80 U/L (45-117); BUN 8 mg/dl (7-24); CHLORIDE 96 mmol/L (98-107); CREATININE 0.76 mg/dL (0.55-1.02); POTASSIUM 4.3 mmol/L (3.5-5.1); SGOT/AST 18 IU/L (3-35); SGPT/ALT 19 U/L (12-78); SODIUM 130 mmol/L (136-145); TOTAL PROTEIN 7.5 gm/dL (6.4-8.2)
[2017-06-15 18:49] LABS: TROPONIN I < 0.015 ng/ml (<0.045)
[2017-06-15 19:44] VITALS: BP 127/54
[2017-06-15 19:58] LABS: BILIRUBIN NEGATIVE (NEGATIVE); BLOOD NEGATIVE (NEGATIVE); CLARITY CLEAR (CLEAR); COLOR YELLOW (YELLOW); GLUCOSE NEGATIVE (NEGATIVE); KETONE TRACE (NEGATIVE); LEUKO ESTERASE NEGATIVE (NEGATIVE); NITRITE NEGATIVE (NEGATIVE); SPECIFIC GRAVITY <= 1.005 (1.005-1.030); UROBILINOGEN 0.2 E.U./dl (0.2-1.0)
[2017-06-15 20:00] VITALS: BP 134/62
[2017-06-15] MEDS ORDERED: COZAAR25 M1 PO (20:12)
[2017-06-15 20:18] LABS: BACTERIA TRACE; WBC 0-2 wbc/hpf (0-5)
[2017-06-16] VITALS: BP 125/44
[2017-06-16 06:20] LABS: BASO % 0.4 % (0.0-1.0); HEMATOCRIT 33.6 % (37.0-47.0); HEMOGLOBIN 9.8 g/dl (12.0-16.0); LYMPH # 0.7 10*3/uL (1.3-4.4); MEAN CELL VOLUME 69.6 fl (81.0-99.0); MEAN CORPUSCULAR HGB 20.3 pg (27.0-31.0); MEAN CORPUSCULAR HGB CONC 29.2 g/dl (33.0-37.0); MONO # 0.1 10*3/uL (0.1-1.0); MONO % 1.6 % (3.0-9.0); NEUT # 4.2 10*3/uL (2.3-7.9); NEUT % 83.6 % (47.0-73.0); PLATELET COUNT AUTOMATED 373 10*3/uL (130-400); RED BLOOD COUNT 4.83 10*6/uL (4.10-5.10); RED CELL DISTRI WIDTH 18.4 % (0-14.5)
[2017-06-16 06:38] LABS: ALBUMIN 3.3 gm/dl (3.1-4.5); ALKALINE PHOSPHATASE 74 U/L (45-117); BUN 8 mg/dl (7-24); CHLORIDE 104 mmol/L (98-107); CHOLESTEROL 199 mg/dL (<200); CREATININE 0.68 mg/dL (0.55-1.02); HDL CHOLESTEROL 67 mg/dl (40-60); LDL CHOLESTEROL 121 mg/dL (9-159); PHOSPHOROUS 3.6 mg/dL (2.5-4.9); POTASSIUM 4.8 mmol/L (3.5-5.1); SGOT/AST 13 IU/L (3-35); SGPT/ALT 20 U/L (12-78); SODIUM 135 mmol/L (136-145); TRIGLYCERIDES 54 mg/dl (<150); VLDL CHOLESTEROL 11 mg/dL (6-40)
[2017-06-16 06:42] LABS: THYROID STIM HORMONE (HS) 0.421 uIU/ml (0.358-4.75)
[2017-06-16 08:00] VITALS: BP 111/45
[2017-06-16 08:14] LABS: VITAMIN D, 25-HYDROXY 25.9 ng/mL (30-100)
[2017-06-16 12:00] VITALS: BP 116/40
[2017-06-16 16:00] VITALS: BP 102/38; BP 107/74
[2017-06-16 20:00] VITALS: BP 122/47
[2017-06-17 00:12] VITALS: BP 113/45
[2017-06-17 08:59] LABS: BASO # 0.1 10*3/uL (0.0-0.1); BASO % 0.7 % (0.0-1.0); EOS % 0.1 % (1.0-4.0); HEMATOCRIT 36.1 % (37.0-47.0); HEMOGLOBIN 10.1 g/dl (12.0-16.0); LYMPH # 2.6 10*3/uL (1.3-4.4); LYMPH % 34.9 % (27.0-41.0); MEAN CELL VOLUME 72.1 fl (81.0-99.0); MEAN CORPUSCULAR HGB 20.2 pg (27.0-31.0); MEAN PLATELET VOLUME 8.8 fl (9.6-12.3); MONO # 0.8 10*3/uL (0.1-1.0); MONO % 11.4 % (3.0-9.0); NEUT # 3.9 10*3/uL (2.3-7.9); NEUT % 52.6 % (47.0-73.0); PLATELET COUNT AUTOMATED 393 10*3/uL (130-400); RED BLOOD COUNT 5.01 10*6/uL (4.10-5.10); RED CELL DISTRI WIDTH 19.5 % (0-14.5); WHITE BLOOD COUNT 7.4 10*3/uL (4.8-10.8)
[2017-06-17 09:27] LABS: BUN 7 mg/dl (7-24); CHLORIDE 99 mmol/L (98-107); CREATININE 0.81 mg/dL (0.55-1.02); POTASSIUM 4.1 mmol/L (3.5-5.1); SODIUM 138 mmol/L (136-145)
[2017-06-17 12:00] VITALS: BP 122/54
[2017-06-17 16:00] VITALS: BP 112/50
[2017-06-17 20:00] VITALS: BP 124/58
[2017-06-18] VITALS: BP 119/53
[2017-06-18 06:48] LABS: BASO # 0.1 10*3/uL (0.0-0.1); BASO % 0.8 % (0.0-1.0); EOS % 0.3 % (1.0-4.0); HEMATOCRIT 34.9 % (37.0-47.0); HEMOGLOBIN 9.8 g/dl (12.0-16.0); LYMPH # 1.3 10*3/uL (1.3-4.4); LYMPH % 21.2 % (27.0-41.0); MEAN CELL VOLUME 72.1 fl (81.0-99.0); MEAN CORPUSCULAR HGB 20.2 pg (27.0-31.0); MEAN CORPUSCULAR HGB CONC 28.1 g/dl (33.0-37.0); MEAN PLATELET VOLUME 9.1 fl (9.6-12.3); MONO # 0.3 10*3/uL (0.1-1.0); MONO % 4.4 % (3.0-9.0); NEUT # 4.3 10*3/uL (2.3-7.9); PLATELET COUNT AUTOMATED 362 10*3/uL (130-400); RED BLOOD COUNT 4.84 10*6/uL (4.10-5.10); RED CELL DISTRI WIDTH 19.2 % (0-14.5); WHITE BLOOD COUNT 5.9 10*3/uL (4.8-10.8)
[2017-06-18 07:09] LABS: BUN 8 mg/dl (7-24); CHLORIDE 101 mmol/L (98-107); CREATININE 0.77 mg/dL (0.55-1.02); POTASSIUM 4.4 mmol/L (3.5-5.1); SODIUM 136 mmol/L (136-145)
[2017-06-18 08:00] VITALS: BP 110/48
[2017-06-18 12:00] VITALS: BP 106/46
[2017-06-18 16:00] VITALS: BP 104/43
[2017-06-18 20:00] VITALS: BP 108/49
[2017-06-19] VITALS: BP 117/55
[2017-06-19 06:54] LABS: BASO % 0.6 % (0.0-1.0); HEMATOCRIT 33.7 % (37.0-47.0); HEMOGLOBIN 9.6 g/dl (12.0-16.0); LYMPH # 1.5 10*3/uL (1.3-4.4); LYMPH % 22.5 % (27.0-41.0); MEAN CELL VOLUME 71.1 fl (81.0-99.0); MEAN CORPUSCULAR HGB 20.3 pg (27.0-31.0); MEAN CORPUSCULAR HGB CONC 28.5 g/dl (33.0-37.0); MEAN PLATELET VOLUME 8.5 fl (9.6-12.3); MONO # 0.3 10*3/uL (0.1-1.0); MONO % 4.8 % (3.0-9.0); NEUT # 4.6 10*3/uL (2.3-7.9); NEUT % 71.8 % (47.0-73.0); PLATELET COUNT AUTOMATED 362 10*3/uL (130-400); RED BLOOD COUNT 4.74 10*6/uL (4.10-5.10); RED CELL DISTRI WIDTH 18.9 % (0-14.5); WHITE BLOOD COUNT 6.5 10*3/uL (4.8-10.8)
[2017-06-19 07:04] LABS: BUN 12 mg/dl (7-24); CHLORIDE 100 mmol/L (98-107); CREATININE 0.76 mg/dL (0.55-1.02); POTASSIUM 4.4 mmol/L (3.5-5.1); SODIUM 137 mmol/L (136-145)
[2017-06-19 08:00] VITALS: BP 104/43
[2017-06-19] MEDS ORDERED: LEVAQUIN500 M2 PO (08:30)
[2017-06-19] MEDS ORDERED: PREDNISONE10 MG PO (08:30)
[2017-06-19] MEDS ORDERED: IMDUR SA30 MG PO (08:31)
== END 2017-06-19 09:24 | disposition home or self-care (01) | DRG 190 ==
LOC: ED 18:01 → 4E 19:19
PROVIDERS: Emergency Medicine; Family Medicine; Internal Medicine; Internal Medicine Hospice and Palliative Medicine
PROC: 3E073KZ Introduction of Other Diagnostic Substance into Coronary Artery, Percutaneous Approach (ICD-10-PCS; principal; 2017-06-17)
PROC: 4A02XM4 Measurement of Cardiac Total Activity, External Approach (ICD-10-PCS; principal; 2017-06-17)
DX: J44.1 Chronic obstructive pulmonary disease with (acute) exacerbation (principal); J18.9 Pneumonia, unspecified organism; E87.8 Other disorders of electrolyte and fluid balance, not elsewhere classified; A31.0 Pulmonary mycobacterial infection; E87.1 Hypo-osmolality and hyponatremia; D50.9 Iron deficiency anemia, unspecified; F17.210 Nicotine dependence, cigarettes, uncomplicated; E55.9 Vitamin D deficiency, unspecified; F41.9 Anxiety disorder, unspecified; E78.5 Hyperlipidemia, unspecified; F32.9 Major depressive disorder, single episode, unspecified; I10 Essential (primary) hypertension; I73.9 Peripheral vascular disease, unspecified; J44.0 Chronic obstructive pulmonary disease with (acute) lower respiratory infection; I25.119 Atherosclerotic heart disease of native coronary artery with unspecified angina pectoris; Z79.51 Long term (current) use of inhaled steroids; Z79.899 Other long term (current) drug therapy; Z71.6 Tobacco abuse counseling; Z79.2 Long term (current) use of antibiotics; Z90.710 Acquired absence of both cervix and uterus; Z82.49 Family history of ischemic heart disease and other diseases of the circulatory system; Z98.42 Cataract extraction status, left eye; Z98.41 Cataract extraction status, right eye; Z79.82 Long term (current) use of aspirin

== ENCOUNTER → 2017-06-15 | Outpatient (CLI) | payer SELFPAY ==
[~2017-06-15] MED LIST changes: +COZAAR25 M1 PO; +IMDUR SA30 MG PO; +LEVAQUIN500 M2 PO
[2017-06-15 10:57] LABS: BASO # 0.1 10*3/uL (0.0-0.1); BASO % 0.8 % (0.0-1.0); EOS # 0.1 10*3/uL (0.0-0.4); EOS % 1.6 % (1.0-4.0); HEMATOCRIT 38.2 % (37.0-47.0); HEMOGLOBIN 10.7 g/dl (12.0-16.0); LYMPH # 2.8 10*3/uL (1.3-4.4); MEAN CELL VOLUME 71.4 fl (81.0-99.0); MEAN PLATELET VOLUME 8.9 fl (9.6-12.3); MONO # 0.8 10*3/uL (0.1-1.0); NEUT # 4.9 10*3/uL (2.3-7.9); NEUT % 56.4 % (47.0-73.0); PLATELET COUNT AUTOMATED 426 10*3/uL (130-400); RED BLOOD COUNT 5.35 10*6/uL (4.10-5.10); RED CELL DISTRI WIDTH 19.6 % (0-14.5); WHITE BLOOD COUNT 8.7 10*3/uL (4.8-10.8)
[2017-06-15 11:26] LABS: ALBUMIN 3.7 gm/dl (3.1-4.5); BUN 8 mg/dl (7-24); CHLORIDE 102 mmol/L (98-107); POTASSIUM 4.8 mmol/L (3.5-5.1); SODIUM 136 mmol/L (136-145)
[2017-06-15 11:31] LABS: ALKALINE PHOSPHATASE 82 U/L (45-117); CREATININE 0.84 mg/dL (0.55-1.02); SGOT/AST 17 IU/L (3-35); SGPT/ALT 20 U/L (12-78); TOTAL PROTEIN 7.8 gm/dL (6.4-8.2)
== END | disposition home or self-care (01) ==
LOC: LAB 10:05
PROVIDERS: Nurse Practitioner Family
DX: A31.0 Pulmonary mycobacterial infection (principal)

== ENCOUNTER 2017-06-29 10:12 | Inpatient (IN) | payer SELFPAY ==
[2017-06-29] VITALS (7 sets, daily range): BP systolic 93–120; BP diastolic 42–60
[~2017-06-29] VITALS: Ht 162.5 cm; Wt 73.9 kg
--- NOTE | ~2017-06-29 | EKG ---
[place], [place] ELECTROCARDIOGRAM REPORT NAME: TACO MIRELES UNIT #: [id number] ROOM: 518 DOCTOR: WOOD AUGUSTINE MD,KJ BIRTHDATE: [birth year] DOS: 06/29/2017 TIME: At 10:29 a.m. Sinus rhythm was noted with a heart rate of 71 beats per minute. Nonspecific ST changes noted in the chest ____ and in the inferior leads. KJ MUIR MD CM:EKGRPT:ELECTROCARDIOGRAM REPORT [id number] [id number] KJ AUGUSTINE MD
--- NOTE | ~2017-06-29 | CON ---
[place], [place] REPORT OF CONSULTATION NAME: TACO MIRELES UNIT #: [id number] ROOM: 518 DOCTOR: KJ PENN MD BIRTHDATE: [birth year] DOS: 06/30/2017 PULMONARY CONSULTATION, EVALUATION AND MANAGEMENT REASON FOR CONSULTATION: For assessment of respiratory symptoms with shortness of breath, cough and others which have been worsening, requiring readmission to the hospital. CONSULTATION REQUESTED BY: Hospitalist services. HISTORY OF PRESENT ILLNESS: This is a 62-year-old white female patient who has been known to me with a history of COPD in the past. She was treated recently for the medical management of acute exacerbation of COPD, acute bronchitis, and discharged home. The patient was discharged home on 06/19/2017. The patient presented back to the hospital as she has been noted with increase in the respiratory symptoms, which has occurred post-discharge progressively. The patient stated the cough has been noted significantly worsened and noted with increase in the severity since her last hospitalization. The cough has been noted moderate to severe, nonproductive. She denies symptoms of chest pain or any hemoptysis. Shortness of breath has been noted with exertion. She did report symptoms of chest tightness. The patient has been currently admitted to the hospital for recurrence of acute exacerbation of COPD. REVIEW OF SYSTEMS: CONSTITUTIONAL: She was reported with symptoms of fatigue and tiredness, decreased energy level. EYES: Denies burning, redness, or tenderness. EARS, NOSE, THROAT: No sore throat, hoarseness, otalgia, or postnasal drainage. CARDIOVASCULAR: Denies anginal pain, edema, or pain of the lower extremities. GASTROINTESTINAL: No dysphagia, nausea, vomiting, diarrhea, abdominal pain, hematemesis, melena, or abnormal weight loss. GENITOURINARY: No dysuria, suprapubic pain, or hematuria. MUSCULOSKELETAL: Denies acute joint pain, redness, or tenderness. CENTRAL NERVOUS SYSTEM: No dizziness, headache, diplopia, or syncopal episodes. Remaining systems were reviewed with the patient. They were noted all negative. PAST MEDICAL HISTORY, SURGICAL HISTORY, SOCIAL HISTORY, FAMILY HISTORY: All reviewed with the patient since my consultation done on 06/16/2017 and after reconfirmed with the patient, they are unchanged. Please refer to the consultation of 06/16/2017 for further reference if needed. The document is already noted, available in the [employer] system. CURRENT MEDICATIONS: Administered noted use of aspirin, Imdur, losartan, vitamin D, Lovenox, ethambutol, Dulera, Solu-Medrol 60 mg b.i.d., Zithromax 500 mg three times a week, and rifampin 300 mg on Tuesday, Tuesday and Tuesday as well. DRUG ALLERGIES: The patient was noted as no known drug allergies. PHYSICAL EXAMINATION: [place], [place] REPORT OF CONSULTATION NAME: TACO MIRELES UNIT #: [id number] ROOM: 518 DOCTOR: WOOD AUGUSTINE MD,KJ BIRTHDATE: [birth year] GENERAL: A 62-year-old female who has been currently noted to be awake and alert at this time without any acute distress. Height was recorded by the nursing staff on admission with height of 5 feet 4 inches, weight of 163 pounds, BMI 26.3. VITAL SIGNS: For the patient which were recorded showed the temperature noted as normal, respiratory rate 18-24, heart rate 75-73, blood pressure 112/52-109/60. Pulse oxygen saturation recorded as 100% saturation on 2 liters nasal cannula. HEENT: Moderate obesity. Head was atraumatic. Eyes nonicterus. NECK: Supple. Old scar tahir in the base of the neck from previous tracheostomy. CARDIOVASCULAR: S1, S2 is audible. LUNGS: Noted with general reduction in breath sounds in the lungs bilaterally. Scattered expiratory wheezing. No crackles. ABDOMEN: Soft, nontender. Bowel sounds present. EXTREMITIES: Without any acute edema. MUSCULOSKELETAL: Without acute deformities. CENTRAL NERVOUS SYSTEM: Cranial nerves 2-12 intact. No focal deficit. SKIN: Not noted with any abnormal lesions or rashes. LABORATORY DATA: Lactic acid noted normal on 06/29/2017. CMP on 06/29/2017 yesterday on admission, normal BUN and creatinine, CMP and troponin. CBC on 06/30/2017, hemoglobin is 9.7, hematocrit 34.0, platelet count normal. CMP on 06/30/2017, normal BUN and creatinine. IMAGING DATA: Chest x-ray that was done on 06/29/2017 was noted without any acute pulmonary infiltration at the present time, hyperinflation changes were noted with findings of COPD. IMPRESSION: The patient who has been currently admitted to the hospital is noted with: 1. Worsening respiratory symptoms, especially the cough which has been noted moderate to severe, episodic, nonresolving, most likely related to mucus impaction in the major airways. 2. The patient with chronic obesity. 3. History of nicotine dependence as well. 4. General anxiety disorder. 5. Past tracheostomy with decannulation. 6. Questionable Mycobacterium avium infection with pulmonary nodule, which has been resected previously surgically. PLAN OF TREATMENT: Continuation of the current bronchodilators, oxygen supplementation, corticosteroids, and other therapies as previously without changes need to be done as far as the medications are concerned. She has been assessed and planned for a therapeutic bronchoscopy, which will be done tomorrow to help clear the mucus impaction in major airways. Any additional treatment changes if necessary for the patient will be done after the bronchoscopy. Other supportive therapy, plan of management as well. Usual care. [place], [place] REPORT OF CONSULTATION NAME: TACO MIRELES UNIT #: [id number] ROOM: 518 DOCTOR: KJ PENN MD BIRTHDATE: [birth year] KJ MUIR MD CM:CONSTR:REPORT OF CONSULTATION 1313 06/30/17 4011 interface
--- NOTE | ~2017-06-29 | PR ---
[place], [place] PROGRESS NOTE NAME: TACO MIRELES UNIT #: [id number] ROOM: 518 DOCTOR: KJ PENN MD BIRTHDATE: [birth year] DOS: 07/01/2017 SUBJECTIVE: The patient was seen and examined 07/01/2017. She is currently noted n.p.o. past midnight for bronchoscopy. Still noted with severe cough, which are noted nonproductive without any sputum expectoration. Denies symptoms of hemoptysis. Shortness breath was still discussed at present at rest with intermittent wheezing and tightness in the chest. There were symptoms of hemoptysis. The patient denies symptoms of nausea, vomiting, diarrhea, and abdominal pain. She denies symptoms of headache or diplopia. Remaining systems were reviewed, they were noted all negative. OBJECTIVE: VITAL SIGNS: For the patient noted as a normal temperature, respiratory rate 20, heart rate 95, blood pressure 132/59. Pulse oxygen saturation recorded on 2 liters nasal cannula 100% saturation. HEENT: Examination shows chronic obesity. Head was atraumatic. Eye nonicterus. NECK: Supple. CARDIOVASCULAR: S1, S2 is audible. LUNGS: Noted with moderate decreased breath sounds and expiratory wheezing. There were no crackles. ABDOMEN: Soft with moderate obesity. Bowel sounds present. EXTREMITIES: Without any acute edema. Chronic obesity. VISIBLE SKIN: No lesions or rashes. MUSCULOSKELETAL: Without any acute deformities. LABORATORY DATA: Blood culture of the patient with no bacterial growths. IMPRESSION: 1. The patient who has been currently noted with ongoing acute exacerbation of chronic obstructive pulmonary disease with persistent severe nonproductive cough n.p.o. for bronchoscopy. 2. History of nicotine abuse as well. PLAN OF THERAPY: No changes in the plan of treatment at this time. Continue with the current plan of management progress. Changes in the medical management done with progression of the illness. Supportive therapy, plan of management and care. [place], [place] PROGRESS NOTE NAME: TACO MIRELES UNIT #: [id number] ROOM: 518 DOCTOR: KJ PENN MD BIRTHDATE: [birth year] KJ MUIR MD CM:PNTRANS 1240 KJ AUGUSTINE MD 07/02/1741 interface
--- NOTE | ~2017-06-29 | PROC NOTE ---
[place], [place] PROCEDURE NOTE NAME: TACO MIRELES UNIT #: [id number] ROOM: 518 DOCTOR: WOOD AUGUSTINE MD,KJ BIRTHDATE: [birth year] DOS: 07/01/2017 BRONCHOSCOPY NOTE PREOPERATIVE DIAGNOSES: Severe cough and wheezing, not resolving. POSTOPERATIVE DIAGNOSES: Severe impaction of the mucus plug with endobronchial tree bilaterally. Finding of past tracheostomy with scarring noted in the upper anterior part of the tracheal wall. PROCEDURE DESCRIPTION: Informed consent was obtained for the patient. The patient was brought to the OR and placed in a supine position. Conscious administered by the Anesthesia Department. After achieving proper sedation, airway introduced into the mouth. Bronchoscope was advanced through the airway into laryngeal area. Epiglottis and vocal cords were seen. Vocal cords are noted yellowish in color, moving symmetrically with movements. Bronchoscope advanced to vocal cord and tracheal lumen. In the past, a small areas of scarring were noted in the anterior portion of the tracheal lumen without any narrowing of the tracheal lumen. Moderate amount of secretion present in tracheal lumen, which was suctioned out. The homer noted sharp. Right upper, right middle, right lower, left upper, lingula, and lower lobe bronchi were all examined. Moderate plugs of the mucus were present in the endobronchial tree bilaterally with subsegments, cleared out with half normal saline wash, sent for cultures. Procedure well tolerated by the patient without any difficulty. Postoperative findings will be discussed once the patient recovers the effects of acute sedation. KJ MUIR MD CM:PROCNOTE:PROCEDURE NOTE [id number] KJ AUGUSTINE MD
[~2017-06-29 10:12] MED LIST changes: +COZAAR25 M1 PO; +IMDUR SA30 MG PO; +LEVAQUIN500 M2 PO
[2017-06-29] MEDS ORDERED: ASPIR-TRIN325 MG PO (10:54)
[2017-06-29 10:57] LABS: BASO # 0.1 10*3/uL (0.0-0.1); BASO % 0.7 % (0.0-1.0); EOS # 0.2 10*3/uL (0.0-0.4); HEMATOCRIT 35.7 % (37.0-47.0); HEMOGLOBIN 10.4 g/dl (12.0-16.0); LYMPH # 2.3 10*3/uL (1.3-4.4); LYMPH % 22.1 % (27.0-41.0); MEAN CELL VOLUME 70.3 fl (81.0-99.0); MEAN CORPUSCULAR HGB 20.5 pg (27.0-31.0); MEAN CORPUSCULAR HGB CONC 29.1 g/dl (33.0-37.0); MEAN PLATELET VOLUME 8.6 fl (9.6-12.3); MONO # 0.8 10*3/uL (0.1-1.0); MONO % 7.3 % (3.0-9.0); NEUT # 7.1 10*3/uL (2.3-7.9); NEUT % 67.5 % (47.0-73.0); PLATELET COUNT AUTOMATED 435 10*3/uL (130-400); RED BLOOD COUNT 5.08 10*6/uL (4.10-5.10); RED CELL DISTRI WIDTH 20.1 % (0-14.5); WHITE BLOOD COUNT 10.5 10*3/uL (4.8-10.8)
[2017-06-29 11:19] LABS: ALBUMIN 3.6 gm/dl (3.1-4.5); ALKALINE PHOSPHATASE 72 U/L (45-117); BUN 8 mg/dl (7-24); CHLORIDE 103 mmol/L (98-107); POTASSIUM 4.4 mmol/L (3.5-5.1); SGOT/AST 14 IU/L (3-35); SGPT/ALT 20 U/L (12-78); SODIUM 136 mmol/L (136-145); TOTAL PROTEIN 7.3 gm/dL (6.4-8.2)
[2017-06-29 11:20] LABS: TROPONIN I < 0.015 ng/ml (<0.045)
[2017-06-29] MEDS ORDERED: SPIRIVA18 MCG PO (14:58)
[2017-06-29 20:14] LABS: BILIRUBIN NEGATIVE (NEGATIVE); BLOOD NEGATIVE (NEGATIVE); CLARITY CLEAR (CLEAR); COLOR YELLOW (YELLOW); GLUCOSE NEGATIVE (NEGATIVE); KETONE NEGATIVE (NEGATIVE); LEUKO ESTERASE NEGATIVE (NEGATIVE); NITRITE NEGATIVE (NEGATIVE); SPECIFIC GRAVITY <= 1.005 (1.005-1.030); UROBILINOGEN 0.2 E.U./dl (0.2-1.0)
[2017-06-29 20:21] LABS: BACTERIA TRACE; EPITHELIAL CELLS 15-20
[2017-06-30] VITALS: BP 102/52
[2017-06-30 06:45] LABS: BASO % 0.3 % (0.0-1.0); EOS # 0.1 10*3/uL (0.0-0.4); EOS % 1.3 % (1.0-4.0); HEMOGLOBIN 9.7 g/dl (12.0-16.0); LYMPH # 2.7 10*3/uL (1.3-4.4); LYMPH % 29.6 % (27.0-41.0); MEAN CELL VOLUME 71.1 fl (81.0-99.0); MEAN CORPUSCULAR HGB 20.3 pg (27.0-31.0); MEAN CORPUSCULAR HGB CONC 28.5 g/dl (33.0-37.0); MEAN PLATELET VOLUME 8.4 fl (9.6-12.3); MONO % 10.3 % (3.0-9.0); NEUT # 5.4 10*3/uL (2.3-7.9); NEUT % 58.2 % (47.0-73.0); PLATELET COUNT AUTOMATED 397 10*3/uL (130-400); RED BLOOD COUNT 4.78 10*6/uL (4.10-5.10); RED CELL DISTRI WIDTH 19.8 % (0-14.5); RETICULOCYTE % 0.92 % (0.50-2.50); WHITE BLOOD COUNT 9.3 10*3/uL (4.8-10.8)
[2017-06-30 07:01] LABS: ALBUMIN 3.4 gm/dl (3.1-4.5); BUN 11 mg/dl (7-24); CHLORIDE 101 mmol/L (98-107); CREATININE 0.72 mg/dL (0.55-1.02); PHOSPHOROUS 4.7 mg/dL (2.5-4.9); POTASSIUM 4.5 mmol/L (3.5-5.1); SGOT/AST 13 IU/L (3-35); SGPT/ALT 19 U/L (12-78); SODIUM 136 mmol/L (136-145); TOTAL IRON BINDING CAPACITY 406 ug/dl (250-450); TOTAL PROTEIN 6.7 gm/dL (6.4-8.2)
[2017-06-30 07:02] LABS: ALKALINE PHOSPHATASE 62 U/L (45-117); IRON 19 ug/dL (50-170)
[2017-06-30 08:00] VITALS: BP 109/60
[2017-06-30 08:13] LABS: FERRITIN 3.8 ng/mL (10.0-291.0)
[2017-06-30 12:00] VITALS: BP 106/45
[2017-06-30 16:00] VITALS: BP 100/40
[2017-06-30 20:00] VITALS: BP 117/45
[2017-07-01] VITALS (10 sets, daily range): BP systolic 100–145; BP diastolic 41–62
[2017-07-02] VITALS: BP 100/48
[2017-07-02 06:18] LABS: BASO % 0.4 % (0.0-1.0); HEMATOCRIT 32.3 % (37.0-47.0); HEMOGLOBIN 9.4 g/dl (12.0-16.0); LYMPH # 1.8 10*3/uL (1.3-4.4); LYMPH % 22.4 % (27.0-41.0); MEAN CELL VOLUME 70.8 fl (81.0-99.0); MEAN CORPUSCULAR HGB 20.6 pg (27.0-31.0); MEAN CORPUSCULAR HGB CONC 29.1 g/dl (33.0-37.0); MEAN PLATELET VOLUME 8.6 fl (9.6-12.3); MONO # 0.7 10*3/uL (0.1-1.0); MONO % 8.4 % (3.0-9.0); NEUT # 5.6 10*3/uL (2.3-7.9); NEUT % 68.4 % (47.0-73.0); PLATELET COUNT AUTOMATED 402 10*3/uL (130-400); RED BLOOD COUNT 4.56 10*6/uL (4.10-5.10); RED CELL DISTRI WIDTH 19.4 % (0-14.5); WHITE BLOOD COUNT 8.2 10*3/uL (4.8-10.8)
[2017-07-02 08:00] VITALS: BP 123/57
[2017-07-02] MEDS ORDERED: FEROSUL325 MG PO (09:08)
[2017-07-02] MEDS ORDERED: PREDNISONE10 MG PO (09:08)
[2017-07-02 14:05] LABS: ACID FAST SPEC PROCESSING Concentration (.)
== END 2017-07-02 10:35 | disposition home or self-care (01) | DRG 191 ==
LOC: ED 10:12 → 5E 12:29 → EDHOLD 12:29 → 5E 13:09
PROVIDERS: Internal Medicine Critical Care Medicine; Nurse Practitioner Family; Registered Nurse; Student in an Organized Health Care Education/Training Program
PROC: 0BC48ZZ Extirpation of Matter from Right Upper Lobe Bronchus, Via Natural or Artificial Opening Endoscopic (ICD-10-PCS; principal; 2017-07-01)
PROC: 0BC88ZZ Extirpation of Matter from Left Upper Lobe Bronchus, Via Natural or Artificial Opening Endoscopic (ICD-10-PCS; principal; 2017-07-01)
PROC: 0BC68ZZ Extirpation of Matter from Right Lower Lobe Bronchus, Via Natural or Artificial Opening Endoscopic (ICD-10-PCS; principal; 2017-07-01)
PROC: 0BC18ZZ Extirpation of Matter from Trachea, Via Natural or Artificial Opening Endoscopic (ICD-10-PCS; principal; 2017-07-01)
PROC: 0BC98ZZ Extirpation of Matter from Lingula Bronchus, Via Natural or Artificial Opening Endoscopic (ICD-10-PCS; principal; 2017-07-01)
PROC: 0BCB8ZZ Extirpation of Matter from Left Lower Lobe Bronchus, Via Natural or Artificial Opening Endoscopic (ICD-10-PCS; principal; 2017-07-01)
PROC: 0BC58ZZ Extirpation of Matter from Right Middle Lobe Bronchus, Via Natural or Artificial Opening Endoscopic (ICD-10-PCS; principal; 2017-07-01)
DX: J44.1 Chronic obstructive pulmonary disease with (acute) exacerbation (principal); A31.0 Pulmonary mycobacterial infection; Z86.74 Personal history of sudden cardiac arrest; I25.811 Atherosclerosis of native coronary artery of transplanted heart without angina pectoris; Z93.0 Tracheostomy status; F17.210 Nicotine dependence, cigarettes, uncomplicated; D50.9 Iron deficiency anemia, unspecified; E66.9 Obesity, unspecified; F41.1 Generalized anxiety disorder; F32.9 Major depressive disorder, single episode, unspecified; I10 Essential (primary) hypertension; E55.9 Vitamin D deficiency, unspecified; I73.9 Peripheral vascular disease, unspecified; Z90.710 Acquired absence of both cervix and uterus; Z98.42 Cataract extraction status, left eye; Z68.26 Body mass index [BMI] 26.0-26.9, adult; Z71.6 Tobacco abuse counseling; Z98.41 Cataract extraction status, right eye; Z79.02 Long term (current) use of antithrombotics/antiplatelets; Z79.51 Long term (current) use of inhaled steroids; Z79.82 Long term (current) use of aspirin; Z79.899 Other long term (current) drug therapy; Z83.3 Family history of diabetes mellitus; Z82.49 Family history of ischemic heart disease and other diseases of the circulatory system

== ENCOUNTER → 2017-07-13 | Outpatient (CLI) | payer SELFPAY ==
[~2017-07-13] MED LIST changes: +SPIRIVA18 MCG PO
== END | disposition home or self-care (01) ==
LOC: RESCLI 03:08
DX: J44.9 Chronic obstructive pulmonary disease, unspecified (principal); I73.9 Peripheral vascular disease, unspecified; I70.90 Unspecified atherosclerosis; I10 Essential (primary) hypertension; A31.9 Mycobacterial infection, unspecified; F33.0 Major depressive disorder, recurrent, mild; F41.9 Anxiety disorder, unspecified; F17.210 Nicotine dependence, cigarettes, uncomplicated; Z71.6 Tobacco abuse counseling

== ENCOUNTER → 2017-08-10 | Outpatient (CLI) | payer SELFPAY ==
[2017-08-10 10:42] LABS: BASO # 0.1 10*3/uL (0.0-0.1); BASO % 0.8 % (0.0-1.0); EOS # 0.1 10*3/uL (0.0-0.4); EOS % 1.2 % (1.0-4.0); HEMATOCRIT 39.1 % (37.0-47.0); HEMOGLOBIN 11.1 g/dl (12.0-16.0); LYMPH # 4.1 10*3/uL (1.3-4.4); MEAN CELL VOLUME 73.5 fl (81.0-99.0); MEAN CORPUSCULAR HGB 20.9 pg (27.0-31.0); MEAN CORPUSCULAR HGB CONC 28.4 g/dl (33.0-37.0); MEAN PLATELET VOLUME 8.8 fl (9.6-12.3); MONO # 1.2 10*3/uL (0.1-1.0); MONO % 11.5 % (3.0-9.0); NEUT % 47.2 % (47.0-73.0); PLATELET COUNT AUTOMATED 478 10*3/uL (130-400); RED BLOOD COUNT 5.32 10*6/uL (4.10-5.10); RED CELL DISTRI WIDTH 21.9 % (0-14.5); WHITE BLOOD COUNT 10.5 10*3/uL (4.8-10.8)
[2017-08-10 11:13] LABS: ALBUMIN 3.8 gm/dl (3.1-4.5); BUN 8 mg/dl (7-24); CHLORIDE 103 mmol/L (98-107); CREATININE 0.85 mg/dL (0.55-1.02); POTASSIUM 4.5 mmol/L (3.5-5.1); SGOT/AST 13 IU/L (3-35); SGPT/ALT 23 U/L (12-78); SODIUM 138 mmol/L (136-145); TOTAL PROTEIN 7.7 gm/dL (6.4-8.2)
[2017-08-10 11:14] LABS: ALKALINE PHOSPHATASE 87 U/L (45-117)
== END | disposition home or self-care (01) ==
LOC: LAB 09:53
PROVIDERS: Nurse Practitioner Family
DX: A31.0 Pulmonary mycobacterial infection (principal)

== ENCOUNTER → 2017-08-19 | Outpatient (CLI) | payer SELFPAY | END | disposition home or self-care (01) | LOC: RESCLI 02:45 | DX: I10 Essential (primary) hypertension (principal); I25.10 Atherosclerotic heart disease of native coronary artery without angina pectoris; I73.9 Peripheral vascular disease, unspecified; J44.9 Chronic obstructive pulmonary disease, unspecified; A31.9 Mycobacterial infection, unspecified; F41.1 Generalized anxiety disorder; F32.9 Major depressive disorder, single episode, unspecified; F17.210 Nicotine dependence, cigarettes, uncomplicated; E78.2 Mixed hyperlipidemia; Z71.6 Tobacco abuse counseling ==

== ENCOUNTER → 2017-11-17 | Outpatient (CLI) | payer SELFPAY ==
[~2017-11-17] MED LIST changes: -ACCUNEB 0.1.25 MG/1 NEB; +ALBUTEROL2.5 MG/0.5 INH; +HYDROXYZINE HCL25 M1 PO; +LEXAPRO10 MG PO; +SINGULAIR10 M1 PO
[2017-11-17 11:08] LABS: BASO # 0.1 10*3/uL (0.0-0.1); BASO % 0.9 % (0.0-1.0); EOS # 0.2 10*3/uL (0.0-0.4); EOS % 2.4 % (1.0-4.0); HEMOGLOBIN 12.4 g/dl (12.0-16.0); LYMPH # 1.9 10*3/uL (1.3-4.4); LYMPH % 27.4 % (27.0-41.0); MEAN CELL VOLUME 74.6 fl (81.0-99.0); MEAN CORPUSCULAR HGB 23.7 pg (27.0-31.0); MEAN CORPUSCULAR HGB CONC 31.8 g/dl (33.0-37.0); MEAN PLATELET VOLUME 8.5 fl (9.6-12.3); MONO # 0.6 10*3/uL (0.1-1.0); MONO % 8.7 % (3.0-9.0); NEUT # 4.2 10*3/uL (2.3-7.9); NEUT % 60.3 % (47.0-73.0); PLATELET COUNT AUTOMATED 322 10*3/uL (130-400); RED BLOOD COUNT 5.23 10*6/uL (4.10-5.10); RED CELL DISTRI WIDTH 20.8 % (0-14.5)
[2017-11-17 11:34] LABS: ALBUMIN 3.8 gm/dl (3.1-4.5); ALKALINE PHOSPHATASE 75 U/L (45-117); BUN 7 mg/dl (7-24); CHLORIDE 104 mmol/L (98-107); CREATININE 0.72 mg/dL (0.55-1.02); POTASSIUM 4.3 mmol/L (3.5-5.1); SGOT/AST 17 IU/L (3-35); SGPT/ALT 21 U/L (12-78); SODIUM 137 mmol/L (136-145); TOTAL PROTEIN 7.3 gm/dL (6.4-8.2)
== END | disposition home or self-care (01) ==
LOC: LAB 04:41 → RESCLI 04:41
PROVIDERS: Nurse Practitioner Family
DX: A31.0 Pulmonary mycobacterial infection (principal)

== ENCOUNTER → 2017-12-08 | Outpatient (CLI) | payer SELFPAY ==
[2017-12-08 10:28] LABS: BASO # 0.1 10*3/uL (0.0-0.1); BASO % 0.8 % (0.0-1.0); EOS # 0.2 10*3/uL (0.0-0.4); EOS % 2.2 % (1.0-4.0); HEMATOCRIT 42.5 % (37.0-47.0); HEMOGLOBIN 12.6 g/dl (12.0-16.0); LYMPH # 2.8 10*3/uL (1.3-4.4); LYMPH % 35.7 % (27.0-41.0); MEAN CELL VOLUME 79.4 fl (81.0-99.0); MEAN CORPUSCULAR HGB 23.6 pg (27.0-31.0); MEAN CORPUSCULAR HGB CONC 29.6 g/dl (33.0-37.0); MEAN PLATELET VOLUME 8.9 fl (9.6-12.3); MONO # 0.8 10*3/uL (0.1-1.0); MONO % 9.8 % (3.0-9.0); NEUT % 51.4 % (47.0-73.0); PLATELET COUNT AUTOMATED 335 10*3/uL (130-400); RED BLOOD COUNT 5.35 10*6/uL (4.10-5.10); RED CELL DISTRI WIDTH 21.3 % (0-14.5); WHITE BLOOD COUNT 7.8 10*3/uL (4.8-10.8)
[2017-12-08 10:46] LABS: ALBUMIN 3.6 gm/dl (3.1-4.5); BUN 7 mg/dl (7-24); CHLORIDE 102 mmol/L (98-107); CREATININE 0.81 mg/dL (0.55-1.02); POTASSIUM 5.1 mmol/L (3.5-5.1); SGOT/AST 15 IU/L (3-35); SGPT/ALT 20 U/L (12-78); SODIUM 135 mmol/L (136-145)
[2017-12-08 10:48] LABS: ALKALINE PHOSPHATASE 73 U/L (45-117); TOTAL PROTEIN 7.2 gm/dL (6.4-8.2)
== END | disposition home or self-care (01) ==
LOC: LAB 09:56
PROVIDERS: Nurse Practitioner Family
DX: A31.0 Pulmonary mycobacterial infection (principal)

== ENCOUNTER → 2018-01-20 | Outpatient (CLI) | payer SELFPAY | END | disposition home or self-care (01) | LOC: RESCLI 00:56 | DX: I25.10 Atherosclerotic heart disease of native coronary artery without angina pectoris (principal); J44.1 Chronic obstructive pulmonary disease with (acute) exacerbation; E55.9 Vitamin D deficiency, unspecified; A31.9 Mycobacterial infection, unspecified; F41.1 Generalized anxiety disorder; D64.9 Anemia, unspecified; F17.210 Nicotine dependence, cigarettes, uncomplicated; Z79.899 Other long term (current) drug therapy; Z79.82 Long term (current) use of aspirin ==

== ENCOUNTER 2018-03-09 10:21 | Inpatient (IN) | payer SELFPAY ==
--- NOTE | ~2018-03-09 | PR ---
[place], [place] PROGRESS NOTE NAME: TACO MIRELES UNIT #: [id number] ROOM: 404 DOCTOR: WOOD AUGUSTINE MD,KJ BIRTHDATE: [birth year] DOS: 03/13/2018 ADDENDUM PROGRESS NOTE PLAN OF MANAGEMENT: The patient could be discharged home on tapering prednisone and oral antibiotic from the pulmonary standpoint. She is doing very well at this time. Abstinence from tobacco use was recommended. KJ MUIR MD CM:PNTRANS 1606 [id number] KJ AUGUSTINE MD 03/22/18 1718 CARMELA ALANIS.R
--- NOTE | ~2018-03-09 | PR ---
[place], [place] PROGRESS NOTE NAME: TACO MIRELES UNIT #: [id number] ROOM: 404 DOCTOR: WOOD AUGUSTINE MD,KJ BIRTHDATE: [birth year] DOS: 03/12/2018 SUBJECTIVE: The patient was noted comfortable at this time, resting, sitting on the bed. She has been noted with symptoms of chest pain. Shortness of breath and wheezing decreased. The patient stated increase in the cough, which has been currently noted nonproductive. There were no symptoms of fever or chills reported by the patient. OBJECTIVE: VITAL SIGNS: For the patient, which were recorded showed the temperature recorded as normal, respiratory rate of 18, heart rate 94, blood pressure 139/63, pulse oxygen saturation on room air 96% saturation. HEENT: Head was atraumatic. Eyes nonicterus. CARDIOVASCULAR SYSTEM: S1, S2 audible. LUNGS: Moderate decreased breath sounds with absence of wheezing, no crackles. ABDOMEN: Soft, nontender. Bowel sounds present. EXTREMITIES: No acute edema. IMPRESSION: Stable respiratory status was noted at the present time with slow improvement in the acute exacerbation of chronic obstructive pulmonary disease and bronchitis noted. PLAN OF TREATMENT: No changes in the plan of care at this time. Continue with current therapy as in progress. Usual care, other supportive plan of management and care. KJ MUIR MD CM:PNTRANS [phone] KJ AUGUSTINE MD 03/13/18 0038 interface
--- NOTE | ~2018-03-09 | CON ---
[place], [place] REPORT OF CONSULTATION NAME: TACO MIRELES UNIT #: [id number] ROOM: 404 DOCTOR: KJ PENN MD BIRTHDATE: [birth year] DOS: 03/10/2018 PULMONARY CONSULTATION, EVALUATION AND MANAGEMENT REASON FOR CONSULTATION: Assessment of recurrence of acute exacerbation of COPD. HISTORY OF PRESENT ILLNESS: The patient is a 62-year-old white female, known to me from the past. The patient has been admitted to the hospital intermittently for the management of acute exacerbation of COPD, last admission was noted in 01/2018. The patient was treated and discharged on 01/17/2018. She has also required therapeutic bronchoscopy at that time. She has been admitted to the hospital under the Hospitalist Service on 03/09/2018 with symptoms reported for acute shortness of breath, coughing and wheezing, started with upper respiratory tract symptoms for about 4 days. The symptoms noted gradually and progressively worsening. The symptoms have been noted with cough that is reported as nonproductive at times and a small amount of sputum expectoration other times. The patient denies any symptoms of fever or chills. Wheezing was reported with tightness in the chest. There was no chest pain reported. REVIEW OF SYSTEMS: CONSTITUTIONAL SYMPTOMS: Fatigue and tiredness reported, without any symptoms of fever or chills. EYES: Denies burning, redness or tenderness. EARS, NOSE AND THROAT SYMPTOMS: Denies sore throat, hoarseness, otalgia, postnasal drainage, or epistaxis. CARDIOVASCULAR SYMPTOMS: Denies anginal pain, edema, or pain of the lower extremities. GASTROINTESTINAL SYMPTOMS: Denies dysphagia, nausea, vomiting, diarrhea, abdominal pain, hematemesis, melena, or hematochezia. SKIN: Denies abnormal lesions or rashes. MUSCULOSKELETAL SYMPTOMS: Without acute deformities. CENTRAL NERVOUS SYSTEM: Denies headache, diplopia, or syncopal episodes. Remaining review of systems were completed, noted all negative. PAST MEDICAL HISTORY: 1. COPD. 2. Nicotine dependence. 3. 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 4. Moderate obesity. 5. MAC infection of the lung, which has been treated with antibiotics previously. 6. Pneumothorax and air leak after CT-guided needle aspiration biopsy in 09/2016. PAST SURGICAL HISTORY: 1. Lumbar laminectomy. 2. Oophorectomy, right side. 3. Partial hysterectomy. [place], [place] REPORT OF CONSULTATION NAME: TACO MIRELES UNIT #: [id number] ROOM: [facility] DOCTOR: KJ PENN MD BIRTHDATE: [birth year] 4. Tracheostomy. 5. Right upper lung nodule resection in 09/2016. 6. CT-guided needle aspiration biopsy for the right upper lung nodule. SOCIAL HISTORY: The patient is . She has 2 children and lives at home. Denies history of alcohol use or illicit drug use. Tobacco use is noted from the age of [age] years old, intermittent tobacco use. She continues to smoke cigarettes at this time, 1 pack a day. FAMILY HISTORY: The patient's father at the age of 4040 years old with complications of diabetes mellitus. Mother at the age of 7777 years old with complications related to myocardial infarction. CURRENT MEDICATIONS: Administered on this hospitalization were noted as use of Plavix, Singulair, Lexapro, aspirin, Imdur, losartan, vitamin D, Lovenox for DVT prophylaxis, Tessalon Perles, Solu-Medrol 40 mg b.i.d., Pulmicort Respules, nicotine replacement patches, DuoNeb, Levaquin, and other p.r.n. medications. DRUG ALLERGIES: No known drug allergies. PHYSICAL EXAMINATION: GENERAL: This is a 62-year-old female who has been currently noted sitting on the side of the bed with intermittent coughing without any sputum expectoration at this time of assessment. Height of 4 feet 4 inches, weight 183 pounds, BMI 31.2 recorded on current admission. VITAL SIGNS: Normal temperature, respiratory rate 16-30, heart rate of 81-83, blood pressure 117/48 to 119/46 this morning. Pulse oxygen saturation on 3 liters nasal cannula is 98% saturation. HEENT: Examination shows head was atraumatic. Eyes nonicterus. NECK: Supple. CARDIOVASCULAR: S1 and S2 audible. LUNGS: Noted with moderately decreased breath sounds with expiratory wheezing. No crackles. ABDOMEN: Soft with moderate obesity. Bowel sounds present, without any tenderness. CENTRAL NERVOUS SYSTEM: Cranial nerves 2 through 12 intact. MUSCULOSKELETAL: Noted without any acute deformities. VISIBLE SKIN: Without lesions or rashes. LABORATORY DATA: Lactic acid yesterday 1.3 on admission. CBC yesterday on admission is essentially normal CBC. PT and PTT yesterday normal. CMP yesterday normal. Influenza A and B nasal washing antigen negative. CBC this morning, hemoglobin 11.1, remaining CBC normal. IMAGING STUDIES: Chest x-ray, 2-view which was done in the Emergency Room was also reviewed, PACS images, changes of COPD were noted with other chronic changes. IMPRESSION: 1. The patient who has been currently admitted to the hospital with acute [place], [place] REPORT OF CONSULTATION NAME: TACO MIRELES UNIT #: [id number] ROOM: 404 DOCTOR: WOOD AUGUSTINE MD,KJ BIRTHDATE: [birth year] exacerbation of chronic obstructive pulmonary disease which is noted recurrent with acute bronchitis, possibility of viral or bacterial etiology has been considered. Influenza A and B nasal washing antigen negative. Sputum culture was ordered, which was pending. 2. The patient with chronic nicotine dependence. 3. Moderate obesity. 4. History of mild tracheal stenosis with past tracheostomy without any major respiratory issues with that. PLAN OF MANAGEMENT: Continue current dose of corticosteroids, bronchodilators, and antibiotics. Sputum culture to be reviewed once available. Bronchodilators to be continued as previously. Counseling was done about the tobacco cessation. Continue nicotine replacement patches to overcome the nicotine withdrawal. Changes in the treatment will be made based on progression of the illness. Thank you for allowing me to participate in the care of this patient. KJ MUIR MD CM:CONSTR:REPORT OF CONSULTATION 1154 03/10/18 1520 interface
--- NOTE | ~2018-03-09 | EKG ---
[place], [place] ELECTROCARDIOGRAM REPORT NAME: TACO MIRLEES UNIT #: [id number] ROOM: 404 DOCTOR: LIT DRAFT REPORT BIRTHDATE: [birth year] [facility] Test Date: 2018-03-09 Test Time: 10:58:10 Pat Name: TACO MIRELES Department: Room: 404 Gender: F Wood Box Maker: : 1955 Requested By: JUANA QUESADA DNP Order Number: [id number] Reading MD: Herman Hall MD Measurements Intervals [place] Rate: 76 P: 87 IA: 194 QRS: 30 QRSD: 117 T: 37 QT: 504 QTc: 567 Interpretive Statements Sinus rhythm Nonspecific intraventricular conduction delay Low voltage, extremity and precordial leads Nonspecific T abnormalities, lateral leads Compared to ECG 01/15/2018 12:42:00 Electronically Signed On 03-11-2018 11:46:43 PST by Herman Hall MD CM:EKGRPT:ELECTROCARDIOGRAM REPORT [id number] JUANA MURRIETA DRAFT REPORT JUANA QUESADA DNP
--- NOTE | ~2018-03-09 | PR ---
[place], [place] PROGRESS NOTE NAME: TACO MIRELES UNIT #: [id number] ROOM: 404 DOCTOR: WOOD AUGUSTINE MD,KJ BIRTHDATE: [birth year] DOS: 03/11/2018 PULMONARY PROGRESS NOTE SUBJECTIVE: The patient reported reduction in symptoms of cough. There was no sputum expectoration. Shortness of breath noted somewhat decreased. The wheezing was also noted better. There were no symptoms of chest pain. The patient does not have any symptoms of hemoptysis. She was continued on the previous treatment for acute exacerbation of COPD without any changes. OBJECTIVE: VITAL SIGNS: Which have been recorded showed normal temperature, respiratory rate recorded as 18, heart rate of 99, blood pressure 127/60. The pulse oxygen saturation of the patient was recorded as 96 on 2 liters nasal cannula at rest. HEENT: No acute change. NECK: Supple. CARDIOVASCULAR: S1 and S2 audible. LUNGS: Moderate decreased breath sounds with [id number]-[id number] expiratory wheezing. There were no crackles. ABDOMEN: Soft, nontender. Bowel sounds present. EXTREMITIES: No acute change. IMPRESSION: The patient with acute exacerbation of chronic obstructive pulmonary disease with acute bronchitis with reduction of the respiratory symptoms noted in the last 24 hours. PLAN OF TREATMENT: Continue current plan at this time as in progress. No additional change in treatment will be necessary except gradual reduction of the corticosteroids will be continued. KJ MUIR MD CM:PNTRANS [id number] KJ AUGUSTINE MD 03/11/18 2311 interface
--- NOTE | ~2018-03-09 | PR ---
[place], [place] PROGRESS NOTE NAME: TACO MIRELES UNIT #: [id number] ROOM: 404 DOCTOR: WOOD AUGUSTINE MD,KJ BIRTHDATE: [birth year] DOS: 03/13/2018 PULMONARY PROGRESS NOTE SUBJECTIVE: The patient was noted comfortable at this time without any acute distress. Stated significant improvement in respiratory symptoms in the last 24 hours. Improvement in cough, wheezing and shortness breath was reported. Denies symptoms of fever or chills. Denies symptoms of hemoptysis. OBJECTIVE: VITAL SIGNS: For the patient which were recorded shows, the temperature noted as normal. Respiratory rate recorded as 18. Heart rate of 89, blood pressure 119/58. The pulse oxygen saturation recorded on 1 liter nasal cannula 96% saturation. HEENT: Examination shows head was atraumatic. Eyes nonicterus. NECK: Supple. CARDIOVASCULAR: S1, S2 is audible. LUNGS: The patient was noted without any wheezing or crackles today. ABDOMEN: Soft and obese. EXTREMITIES: Without any edema. LABORATORY DATA: CBC today, normal WBC count. The CMP this morning, normal BUN, creatinine and other electrolytes. IMPRESSION: The patient with progressive resolution, improvement noted in the respiratory status with acute exacerbation of chronic obstructive pulmonary disease, acute bronchitis. All the respiratory symptoms have been gradually subsiding. PLAN OF MANAGEMENT: The patient could be discharged home on tapering prednisone and oral antibiotic from the pulmonary standpoint. She is doing very well at this time. Abstinence from tobacco use was recommended. KJ MUIR MD CM:PNTRANS [id number] KJ AUGUSTINE MD 03/15/18 0111 interface
[~2018-03-09 10:21] MED LIST changes: -HYDROXYZINE HCL25 M1 PO; +HYDROXYZINE HCL25 MG PO
[2018-03-09 10:22] VITALS: BP 117/48
[2018-03-09 10:50] LABS: BASO # 0.1 10*3/uL (0.0-0.1); BASO % 0.7 % (0.0-1.0); EOS # 0.1 10*3/uL (0.0-0.4); EOS % 0.8 % (1.0-4.0); HEMATOCRIT 38.9 % (37.0-47.0); HEMOGLOBIN 12.3 g/dl (12.0-16.0); LYMPH # 1.9 10*3/uL (1.3-4.4); LYMPH % 19.7 % (27.0-41.0); MEAN CELL VOLUME 83.7 fl (81.0-99.0); MEAN CORPUSCULAR HGB 26.5 pg (27.0-31.0); MEAN CORPUSCULAR HGB CONC 31.6 g/dl (33.0-37.0); MEAN PLATELET VOLUME 8.4 fl (9.6-12.3); MONO # 1.3 10*3/uL (0.1-1.0); MONO % 12.9 % (3.0-9.0); NEUT # 6.3 10*3/uL (2.3-7.9); NEUT % 65.5 % (47.0-73.0); PLATELET COUNT AUTOMATED 310 10*3/uL (130-400); RED BLOOD COUNT 4.65 10*6/uL (4.10-5.10); RED CELL DISTRI WIDTH 16.7 % (0-14.5); WHITE BLOOD COUNT 9.7 10*3/uL (4.8-10.8)
[2018-03-09 11:01] LABS: ACT PARTIAL THROMBO TIME 25.2 SECONDS (20.8-31.5)
[2018-03-09 11:05] LABS: ALBUMIN 3.3 gm/dl (3.1-4.5); ALKALINE PHOSPHATASE 80 U/L (45-117); BUN 6 mg/dl (7-24); CHLORIDE 105 mmol/L (98-107); CREATININE 0.78 mg/dL (0.55-1.02); LIPASE 109 U/L (73-393); POTASSIUM 4.3 mmol/L (3.5-5.1); SGOT/AST 16 IU/L (3-35); SGPT/ALT 25 U/L (12-78); SODIUM 138 mmol/L (136-145); TOTAL PROTEIN 7.1 gm/dL (6.4-8.2)
[2018-03-09 11:06] LABS: TROPONIN I < 0.015 ng/ml (<0.045)
--- NOTE | 2018-03-09 13:12 | NUR ---
PT INFORMED OF ROOM NUMBER AND NOTIFIED VILMA BEFORE GOING TO THE FLOOR.
[2018-03-09 13:26] VITALS: BP 116/54
--- NOTE | 2018-03-09 13:34 | NUR ---
Time: 1325 A 62 year old admitted to under services of MILENA HORTON DO. Pt. arrived via stretcher from ER. Chief complaint: . 4 DAYS INCREASING SHORT OF BREATH. NAVYA HUDDLESTON
[2018-03-09] MEDS ORDERED: PLAVIX75 M1 PO (13:43)
--- NOTE | 2018-03-09 13:59 | NUR ---
NOTIFIED OF CONSULT
[2018-03-09 14:00] VITALS: BP 116/54
[2018-03-09 16:00] VITALS: BP 116/58
--- NOTE | 2018-03-09 19:31 | NUR ---
CALLED DR. MONTERO AT THIS TIME. PATIENT VERY ANXIOUS AND GETS VERY SHORT OF BREATH WITH ANY EXERTION. PATIENT STATES SHE HAS BEEN COUGHING AND THAT WHEN SHE STARTS COUGHING SHE CANNOT CATCH HER BREATH AND THEN SHE GETS ANXIOUS BECAUSE IT FEELS LIKE SHES BEING SMOTHERED. DR. MONTERO STATED HE WOULD PUT SOMETHING IN
[2018-03-09 20:00] VITALS: BP 150/58
--- NOTE | 2018-03-09 21:30 | NUR ---
TESSELON PERLE APPEARS EFFFECTIVE, PT SLEEPING
[2018-03-10] VITALS: BP 119/46
[2018-03-10 06:29] LABS: BASO % 0.2 % (0.0-1.0); HEMATOCRIT 35.3 % (37.0-47.0); HEMOGLOBIN 11.1 g/dl (12.0-16.0); LYMPH # 0.9 10*3/uL (1.3-4.4); LYMPH % 13.7 % (27.0-41.0); MEAN CELL VOLUME 83.5 fl (81.0-99.0); MEAN CORPUSCULAR HGB 26.2 pg (27.0-31.0); MEAN CORPUSCULAR HGB CONC 31.4 g/dl (33.0-37.0); MEAN PLATELET VOLUME 8.8 fl (9.6-12.3); MONO # 0.7 10*3/uL (0.1-1.0); MONO % 11.3 % (3.0-9.0); NEUT # 4.6 10*3/uL (2.3-7.9); NEUT % 74.2 % (47.0-73.0); PLATELET COUNT AUTOMATED 279 10*3/uL (130-400); RED BLOOD COUNT 4.23 10*6/uL (4.10-5.10); RED CELL DISTRI WIDTH 16.3 % (0-14.5); WHITE BLOOD COUNT 6.2 10*3/uL (4.8-10.8)
[2018-03-10 06:53] LABS: BUN 11 mg/dl (7-24); CHLORIDE 102 mmol/L (98-107); CHOLESTEROL 131 mg/dL (<200); CREATININE 0.58 mg/dL (0.55-1.02); FREE T4 0.82 ng/dl (0.76-1.46); HDL CHOLESTEROL 64 mg/dl (40-60); LDL CHOLESTEROL 58 mg/dL (9-159); POTASSIUM 4.5 mmol/L (3.5-5.1); SODIUM 135 mmol/L (136-145); TRIGLYCERIDES 44 mg/dl (<150); VLDL CHOLESTEROL 9 mg/dL (6-40)
[2018-03-10 06:59] LABS: THYROID STIM HORMONE (HS) 0.289 uIU/ml (0.358-4.75)
[2018-03-10 07:19] LABS: VITAMIN D, 25-HYDROXY 27.9 ng/mL (30-100)
[2018-03-10 08:00] VITALS: BP 136/52
--- NOTE | 2018-03-10 08:20 | NUR ---
PT AMBULATORY TO BATHROOM AND BACK TO BED. SITTING AT SIDE OF BED SHORT OF BREATHE WITH EXERTION AND HARSH NONPROD COUGH. PT RELAXED AND OXYGEN IN USE. MEDICATED WITH TESSALON PO PER ORDER, SEE EMAR. PT EATING AT THIS TIME. TOLERATED ROUTINE MED WITH NO PROBLEM. CALL LIGHT IN REACH. SEE SHIFT ASSESSMENT.
--- NOTE | 2018-03-10 09:00 | NUR ---
Garage Helper in to talk to patient. Patient states lives at home with her . There are 13 steps in the home. Physician: Dr. Looney in resident clinic Pharmacy: [facility] Home health services: none Patient's level of ADLs: INDEPENDENT Patient has working utilities: yes DME: O2 @ 2L nc prn, nebulizer, portable O2 tanks, O2 supplier [employer]. Scientologist pays for her O2. Follow-up physician's appointment after d/c: will be made by the hospitalist nurse director upon discharge Does patient want to access PORTAL?: no Discharge plan discussed with patient. She lives at home with her . She is independent in her ADLs and ambulation. Discussed home health care services and she denies any home needs at this time. When medically stable she will be discharged to home. RADHA BRISCOE
--- NOTE | 2018-03-10 09:30 | NUR ---
RESTING IN BED. NO C/O AT THIS TIME. OXYGEN IN USE. CALL LIGHT IN REACH.
[2018-03-10 12:00] VITALS: BP 134/62
--- NOTE | 2018-03-10 13:00 | NUR ---
RESTING IN BED. NO C/O AT THIS TIME. OXYGEN IN USE. CALL LIGHT IN REACH.
--- NOTE | 2018-03-10 15:26 | NUR ---
ASSUMED CARE OF PATIENT AT THIS TIME. PATIENT SITTING UP ON SIDE OF BED. NO S/S OF DISTRESS. CALL LIGHT WITHIN REACH.
[2018-03-10 16:00] VITALS: BP 106/44
--- NOTE | 2018-03-10 17:29 | NUR ---
PATIENT RECEIVED TESSALON NATASHA FOR COUGHING.
[2018-03-10 20:00] VITALS: BP 130/65
[2018-03-11] VITALS: BP 108/47
[2018-03-11 06:55] LABS: BASO % 0.1 % (0.0-1.0); HEMATOCRIT 35.3 % (37.0-47.0); HEMOGLOBIN 11.2 g/dl (12.0-16.0); LYMPH # 1.1 10*3/uL (1.3-4.4); LYMPH % 13.6 % (27.0-41.0); MEAN CELL VOLUME 83.8 fl (81.0-99.0); MEAN CORPUSCULAR HGB 26.6 pg (27.0-31.0); MEAN CORPUSCULAR HGB CONC 31.7 g/dl (33.0-37.0); MEAN PLATELET VOLUME 8.7 fl (9.6-12.3); MONO % 12.2 % (3.0-9.0); NEUT # 5.9 10*3/uL (2.3-7.9); NEUT % 73.7 % (47.0-73.0); PLATELET COUNT AUTOMATED 295 10*3/uL (130-400); RED BLOOD COUNT 4.21 10*6/uL (4.10-5.10); RED CELL DISTRI WIDTH 16.7 % (0-14.5)
[2018-03-11 07:11] LABS: CHLORIDE 103 mmol/L (98-107); POTASSIUM 4.4 mmol/L (3.5-5.1); SODIUM 139 mmol/L (136-145)
[2018-03-11 07:18] LABS: BUN 9 mg/dl (7-24); CREATININE 0.67 mg/dL (0.55-1.02)
[2018-03-11 08:00] VITALS: BP 111/49
[2018-03-11 12:00] VITALS: BP 127/60
[2018-03-11 16:00] VITALS: BP 115/53
--- NOTE | 2018-03-11 17:52 | NUR ---
PATIENT RECEIVED TESSALON NATASHA FOR DRY HARSH COUGH.
[2018-03-11 20:00] VITALS: BP 133/68
--- NOTE | 2018-03-11 20:00 | NUR ---
TOOK OVER CARE OF PT. ASSESSMENT COMPLETE. PT COMPLAINS OF NOTHING AT THIS TIME. RESPIRATIONS EASY. FAMILY AT BEDSIDE. PT PLEASANT WITH STAFF. WILL CONTINUE TO MONITOR. CALL LIGHT IN REACH.
[2018-03-12] VITALS: BP 137/62
--- NOTE | 2018-03-12 03:37 | NUR ---
PT RESTING IN BED, SUPPLEMENTAL OXYGEN IN PLACE. NO S/S OF DISTRESS NOTED. RESPIRATIONS EASY AND UNLABORED. CALL LIGHT IN REACH.
[2018-03-12 06:28] LABS: BASO % 0.1 % (0.0-1.0); HEMOGLOBIN 11.2 g/dl (12.0-16.0); LYMPH # 0.9 10*3/uL (1.3-4.4); LYMPH % 12.4 % (27.0-41.0); MEAN CELL VOLUME 84.3 fl (81.0-99.0); MEAN PLATELET VOLUME 8.9 fl (9.6-12.3); MONO # 0.7 10*3/uL (0.1-1.0); MONO % 10.1 % (3.0-9.0); NEUT # 5.5 10*3/uL (2.3-7.9); PLATELET COUNT AUTOMATED 297 10*3/uL (130-400); RED BLOOD COUNT 4.15 10*6/uL (4.10-5.10); RED CELL DISTRI WIDTH 16.8 % (0-14.5); WHITE BLOOD COUNT 7.2 10*3/uL (4.8-10.8)
[2018-03-12 06:40] LABS: BUN 10 mg/dl (7-24); CHLORIDE 102 mmol/L (98-107); CREATININE 0.67 mg/dL (0.55-1.02); POTASSIUM 4.3 mmol/L (3.5-5.1); SODIUM 138 mmol/L (136-145)
[2018-03-12 08:00] VITALS: BP 120/55
[2018-03-12 12:00] VITALS: BP 139/63
[2018-03-12 16:00] VITALS: BP 109/39
[2018-03-12 20:00] VITALS: BP 111/57
--- NOTE | 2018-03-12 20:15 | NUR ---
1939 SITTING UP ON THE SIDE OF THE BED. 02 INTACT. PULSE OX 96% ON 1L 02 VIA NC. HEP LOCK INTACT. NO DISTRESS NOTED.
--- NOTE | 2018-03-12 22:06 | NUR ---
RESTING IN BED WITH EYES CLOSED. APPEARS TO BE SLEEPING. 02 INTACT.
--- NOTE | 2018-03-12 22:17 | NUR ---
ANDREA TADEO GIVEN PER REQUEST FOR C/O COUGH.
--- NOTE | 2018-03-12 23:00 | NUR ---
ASSUMED CARE FOR THIS PT AT THIS TIME. PT RESTING QUIETLY IN BED W/EYES CLOSED. NO S/S OF DISTRESS NOTED.
[2018-03-13] VITALS: BP 118/42
[2018-03-13 06:14] LABS: HEMATOCRIT 36.1 % (37.0-47.0); HEMOGLOBIN 11.1 g/dl (12.0-16.0); LYMPH # 1.1 10*3/uL (1.3-4.4); LYMPH % 15.3 % (27.0-41.0); MEAN CELL VOLUME 85.1 fl (81.0-99.0); MEAN CORPUSCULAR HGB 26.2 pg (27.0-31.0); MEAN CORPUSCULAR HGB CONC 30.7 g/dl (33.0-37.0); MEAN PLATELET VOLUME 9.2 fl (9.6-12.3); MONO # 0.7 10*3/uL (0.1-1.0); MONO % 9.2 % (3.0-9.0); NEUT # 5.3 10*3/uL (2.3-7.9); NEUT % 75.2 % (47.0-73.0); PLATELET COUNT AUTOMATED 301 10*3/uL (130-400); RED BLOOD COUNT 4.24 10*6/uL (4.10-5.10); RED CELL DISTRI WIDTH 16.6 % (0-14.5); WHITE BLOOD COUNT 7.1 10*3/uL (4.8-10.8)
[2018-03-13 06:38] LABS: ALBUMIN 3.2 gm/dl (3.1-4.5); ALKALINE PHOSPHATASE 59 U/L (45-117); BUN 9 mg/dl (7-24); CHLORIDE 100 mmol/L (98-107); CREATININE 0.69 mg/dL (0.55-1.02); POTASSIUM 4.3 mmol/L (3.5-5.1); SGOT/AST 16 IU/L (3-35); SGPT/ALT 28 U/L (12-78); SODIUM 139 mmol/L (136-145); TOTAL PROTEIN 6.5 gm/dL (6.4-8.2)
[2018-03-13 08:00] VITALS: BP 119/58
--- NOTE | 2018-03-13 09:00 | NUR ---
Moshgiach in to see patient. No new needs or request at this time. She denies any home needs. When medically stable she will be discharged to home.
[2018-03-13] MEDS ORDERED: PREDNISONE10 MG PO (10:10)
[2018-03-13] MEDS ORDERED: LEVAQUIN500 M2 PO (10:10)
--- NOTE | 2018-03-13 12:13 | NUR ---
Discharge instructions reviewed with patient/family. Patient receptive and verbalizes understanding. Follow-up care arranged. Written instructions given to patient/family. WENT OVER DISCHARGE PACKET WITH PATIENT. PATIENT PICKED UP PRESCRIPTIONS FROM PHARMACY. PATIENT AWARE OF FOLLOW UP APPOINTMENT WITH [facility]IC. PATIENT DENIES ANY NEEDS OR CONCERNS AT THIS TIME. PATIENT ACCOMPANIED TO CAR AT THIS TIME VIA WHEELCHAIR BY STAFF AND FAMILY. PREETHI MOHAN
[2018-08-31] MEDS ORDERED: PROAIR HFA8.5 GM INH (21:06)
[2018-09-11] MEDS ORDERED: SINGULAIR10 M1 PO (09:20)
[2018-09-11] MEDS ORDERED: PREDNISONE10 MG PO (09:20)
[2018-09-11] MEDS ORDERED: MUCINEX1200 M1 PO (09:20)
[2018-09-11] MEDS ORDERED: PROAIR HFA8.5 GM INH (09:20)
== END 2018-03-13 12:15 | disposition home or self-care (01) | DRG 190 ==
LOC: ED 10:21 → EDHOLD 12:15 → 4E 12:15
PROVIDERS: Emergency Medicine; Internal Medicine; Nurse Practitioner Family; ADMIT Internal Medicine
DX: J44.1 Chronic obstructive pulmonary disease with (acute) exacerbation (principal); J18.9 Pneumonia, unspecified organism; E44.1 Mild protein-calorie malnutrition; J96.11 Chronic respiratory failure with hypoxia; E87.1 Hypo-osmolality and hyponatremia; D72.810 Lymphocytopenia; D64.9 Anemia, unspecified; J44.0 Chronic obstructive pulmonary disease with (acute) lower respiratory infection; F41.9 Anxiety disorder, unspecified; J20.9 Acute bronchitis, unspecified; F32.9 Major depressive disorder, single episode, unspecified; E55.9 Vitamin D deficiency, unspecified; F17.210 Nicotine dependence, cigarettes, uncomplicated; E66.9 Obesity, unspecified; E66.3 Overweight; I73.9 Peripheral vascular disease, unspecified; I25.10 Atherosclerotic heart disease of native coronary artery without angina pectoris; E78.5 Hyperlipidemia, unspecified; Z99.81 Dependence on supplemental oxygen; Z86.711 Personal history of pulmonary embolism; Z79.82 Long term (current) use of aspirin; Z98.41 Cataract extraction status, right eye; Z98.42 Cataract extraction status, left eye; Z90.710 Acquired absence of both cervix and uterus; Z83.3 Family history of diabetes mellitus; Z82.49 Family history of ischemic heart disease and other diseases of the circulatory system; Z71.6 Tobacco abuse counseling; Z90.721 Acquired absence of ovaries, unilateral; Z68.31 Body mass index [BMI] 31.0-31.9, adult

== ENCOUNTER → 2018-03-22 | Outpatient (CLI) | payer SELFPAY ==
[~2018-03-22] MED LIST changes: +BENZONATATE100 M1 PO; +LIPITOR40 MG PO; +PROAIR HFA8.5 GM INH; +WELLBUTRIN XL150 MG PO
== END | disposition home or self-care (01) ==
LOC: RESCLI 00:25
DX: Z09 Encounter for follow-up examination after completed treatment for conditions other than malignant neoplasm (principal); E55.9 Vitamin D deficiency, unspecified; F41.1 Generalized anxiety disorder; A31.9 Mycobacterial infection, unspecified; J44.1 Chronic obstructive pulmonary disease with (acute) exacerbation; I25.10 Atherosclerotic heart disease of native coronary artery without angina pectoris; E66.9 Obesity, unspecified; I73.9 Peripheral vascular disease, unspecified; E78.5 Hyperlipidemia, unspecified; Z88.8 Allergy status to other drugs, medicaments and biological substances; Z71.6 Tobacco abuse counseling; Z79.899 Other long term (current) drug therapy; Z90.710 Acquired absence of both cervix and uterus

== ENCOUNTER 2018-04-26 09:52 | Inpatient (IN) | payer SELFPAY ==
[~2018-04-26] VITALS: Ht 162.5 cm; Wt 80.4 kg
--- NOTE | ~2018-04-26 | EKG ---
[place], [place] ELECTROCARDIOGRAM REPORT NAME: TACO MIRELES UNIT #: [id number] ROOM: 403 DOCTOR: LIT DRAFT REPORT BIRTHDATE: [birth year] [facility] Test Date: 2018-04-26 Test Time: 12:45:12 Pat Name: TACO MIRELES Department: Room: 403 Gender: F Family Specialist: Catalina Middleton : 1955 Requested By: BRADEN GILMAN Order Number: [id number] Reading MD: Simon Goldstein MD Measurements Intervals [place] Rate: 65 P: 79 MN: 155 QRS: 13 QRSD: 94 T: 73 QT: 670 QTc: 697 Interpretive Statements Sinus rhythm Low voltage, extremity and precordial leads Abnormal inferior Q waves Prolonged QT interval Compared to ECG 03/09/2018 10:58:10 Inferior Q waves now present Q waves now present Prolonged QT interval now present Intraventricular conduction delay no longer present T-wave abnormality no longer present Electronically Signed On 04-28-2018 9:54:12 PDT by Simon Goldstein MD CM:EKGRPT:ELECTROCARDIOGRAM REPORT [id number] BRADEN DIANA DRAFT REPORT BRADEN GILMAN DO
--- NOTE | ~2018-04-26 | EKG ---
[place], [place] ELECTROCARDIOGRAM REPORT NAME: TACO MIRELES UNIT #: [id number] ROOM: 403 DOCTOR: LIT DRAFT REPORT BIRTHDATE: [birth year] [facility] Test Date: 2018-04-26 Test Time: 15:44:57 Pat Name: TACO MIRELES Department: Room: 403 Gender: F Pageant Director: Catalina Middleton : 1955 Requested By: BRADEN GILMAN Order Number: [id number] Reading MD: Simon Goldstein MD Measurements Intervals [place] Rate: 69 P: 79 NV: 165 QRS: 19 QRSD: 97 T: 29 QT: 430 QTc: 461 Interpretive Statements Sinus rhythm Low voltage, extremity and precordial leads Compared to ECG 03/09/2018 10:58:10 Intraventricular conduction delay no longer present T-wave abnormality no longer present Electronically Signed On 04-28-2018 9:55:16 PDT by Simon Goldstein MD CM:EKGRPT:ELECTROCARDIOGRAM REPORT [id number] BRADEN DIANA DRAFT REPORT BRADEN GILMAN DO
--- NOTE | ~2018-04-26 | EKG ---
[place], [place] ELECTROCARDIOGRAM REPORT NAME: TACO MIRELES UNIT #: [id number] ROOM: 403 DOCTOR: LIT DRAFT REPORT BIRTHDATE: [birth year] [facility] Test Date: 2018-04-26 Test Time: 10:04:09 Pat Name: TACO MIRELES Department: Room: 403 Gender: F Clinical Program Consultant: Catalina Middleton : 1955 Requested By: BRADEN GILMAN Order Number: [id number] Reading MD: Simon Goldstein MD Measurements Intervals [place] Rate: 76 P: [place]: QRS: 50 QRSD: 88 T: -59 QT: 420 QTc: 473 Interpretive Statements NSR Probable inferior infarct, age indeterminate Lateral leads are also involved Baseline wander in lead(s) I,III,aVL,V3 Compared to ECG 03/09/2018 10:58:10 Myocardial infarct finding now present Sinus rhythm no longer present Intraventricular conduction delay no longer present T-wave abnormality no longer present Electronically Signed On 04-28-2018 9:53:51 PDT by Simon Goldstein MD CM:EKGRPT:ELECTROCARDIOGRAM REPORT [id number] BRADEN DIANA DRAFT REPORT BRADEN GILMAN DO
[~2018-04-26 09:52] MED LIST changes: -BENZONATATE100 M1 PO; -LIPITOR40 MG PO; -PROAIR HFA8.5 GM INH; -WELLBUTRIN XL150 MG PO
[2018-04-26 10:01] VITALS: BP 111/61
--- NOTE | 2018-04-26 10:24 | NUR ---
PATIENT DENIES ANY WOUNDS AT THIS TIME. A&OX4.
[2018-04-26 10:28] LABS: BASO # 0.1 10*3/uL (0.0-0.1); BASO % 0.8 % (0.0-1.0); EOS # 0.1 10*3/uL (0.0-0.4); EOS % 1.5 % (1.0-4.0); HEMATOCRIT 40.9 % (37.0-47.0); HEMOGLOBIN 13.1 g/dl (12.0-16.0); LYMPH # 2.1 10*3/uL (1.3-4.4); LYMPH % 25.9 % (27.0-41.0); MEAN CELL VOLUME 83.8 fl (81.0-99.0); MEAN CORPUSCULAR HGB 26.8 pg (27.0-31.0); MEAN PLATELET VOLUME 8.8 fl (9.6-12.3); MONO # 0.7 10*3/uL (0.1-1.0); MONO % 8.9 % (3.0-9.0); NEUT % 62.5 % (47.0-73.0); PLATELET COUNT AUTOMATED 379 10*3/uL (130-400); RED BLOOD COUNT 4.88 10*6/uL (4.10-5.10); RED CELL DISTRI WIDTH 15.7 % (0-14.5)
[2018-04-26 10:30] VITALS: BP 111/61
[2018-04-26 10:36] LABS: ACT PARTIAL THROMBO TIME 26.5 SECONDS (20.8-31.5)
[2018-04-26 10:52] LABS: LIPASE 128 U/L (73-393)
[2018-04-26 10:54] LABS: ALBUMIN 3.6 gm/dl (3.1-4.5); ALKALINE PHOSPHATASE 74 U/L (45-117); BUN 6 mg/dl (7-24); CHLORIDE 98 mmol/L (98-107); CREATININE 0.77 mg/dL (0.55-1.02); POTASSIUM 4.6 mmol/L (3.5-5.1); SGOT/AST 17 IU/L (3-35); SGPT/ALT 24 U/L (12-78); SODIUM 133 mmol/L (136-145); TOTAL PROTEIN 7.1 gm/dL (6.4-8.2)
[2018-04-26 10:55] LABS: TROPONIN I < 0.015 ng/ml (<0.045)
--- NOTE | 2018-04-26 13:10 | NUR ---
PATIENT TAKEN TO 4TH FLOOR AT THIS TIME BY THIS NURSE.
[2018-04-26 13:13] VITALS: BP 115/54
--- NOTE | 2018-04-26 13:20 | NUR ---
A 63, admitted to , under the services of HAMILTON Grace DO with a diagnosis of copd exacerbation pneumonitis. Chief complaint is sob with cough x 2 weeks. Patient arrived via stretcher from ER. Monitor applied. Initial assessment completed. Vital signs taken and recorded. See assessment for past medical history, medications and allergies. Patient and/or family oriented to unit. [facility] visitation policy reviewed. QUINCY CRISTOBAL
[2018-04-26] MEDS ORDERED: LIPITOR40 MG PO (13:24)
[2018-04-26] MEDS ORDERED: WELLBUTRIN XL150 MG PO (13:29)
[2018-04-26 13:40] VITALS: BP 123/58
[2018-04-26 16:00] VITALS: BP 129/64
[2018-04-26 20:00] VITALS: BP 96/50
--- NOTE | 2018-04-26 21:47 | NUR ---
TESSALON NATASHA GIVEN FOR COUGH.
[2018-04-27] VITALS: BP 110/60
--- NOTE | 2018-04-27 07:25 | NUR ---
At bedside report pt had got up to bedside commode. States she is very sob. States she has not had a respiratory treatment since last night. Requesting one now, respiratory paged at this time by chief warden.
[2018-04-27 07:39] LABS: BASO % 0.2 % (0.0-1.0); HEMATOCRIT 37.4 % (37.0-47.0); HEMOGLOBIN 11.9 g/dl (12.0-16.0); LYMPH # 1.1 10*3/uL (1.3-4.4); LYMPH % 16.9 % (27.0-41.0); MEAN CELL VOLUME 84.2 fl (81.0-99.0); MEAN CORPUSCULAR HGB 26.8 pg (27.0-31.0); MEAN CORPUSCULAR HGB CONC 31.8 g/dl (33.0-37.0); MEAN PLATELET VOLUME 9.3 fl (9.6-12.3); MONO # 0.3 10*3/uL (0.1-1.0); MONO % 4.3 % (3.0-9.0); NEUT # 5.1 10*3/uL (2.3-7.9); NEUT % 78.1 % (47.0-73.0); PLATELET COUNT AUTOMATED 343 10*3/uL (130-400); RED BLOOD COUNT 4.44 10*6/uL (4.10-5.10); RED CELL DISTRI WIDTH 15.4 % (0-14.5); WHITE BLOOD COUNT 6.5 10*3/uL (4.8-10.8)
--- NOTE | 2018-04-27 07:55 | NUR ---
Tessolon pearles given at this time per pt request and prn order for c/o cough. Pt is very short of breath after getting up to bedside commode. Requesting respiratory treatment. Respiratory paged at this time again for treatment.
[2018-04-27 08:00] VITALS: BP 118/62
[2018-04-27 08:00] LABS: ALBUMIN 3.5 gm/dl (3.1-4.5); ALKALINE PHOSPHATASE 67 U/L (45-117); BUN 9 mg/dl (7-24); CHLORIDE 100 mmol/L (98-107); CREATININE 0.75 mg/dL (0.55-1.02); PHOSPHOROUS 3.6 mg/dL (2.5-4.9); POTASSIUM 4.5 mmol/L (3.5-5.1); SGOT/AST 13 IU/L (3-35); SGPT/ALT 24 U/L (12-78); SODIUM 133 mmol/L (136-145); TOTAL PROTEIN 6.8 gm/dL (6.4-8.2)
--- NOTE | 2018-04-27 09:00 | NUR ---
Candy Cutter Hand in to talk to patient. Patient states lives at home with . There are few steps in the home. Physician: resident clinic Pharmacy: [facility] Home health services: none Patient's level of ADLs: INDEPENDENT Patient has working utilities: all working DME: home oxygen, portable tank,nebulizer Follow-up physician's appointment after d/c: will be made by hospitalist nurse director upon discharge Does patient want to access PORTAL?: no Discharge plan discussed with patient present, patient states she is living at home with , she is independent in adls and ambulation, patient states she has home oxygen that was paid for by her yazdanism. patient states she will be going home when able and denies any home needs. discussed with patient not having any insurance, patient states she has tried to get medicaid and she makes too much money but not enough to afford to pay for insurance. Kiana from [facility] will also see patient. SHIRLEY CASTELLON
--- NOTE | 2018-04-27 09:00 | NUR ---
States medication for cough effective.
[2018-04-27 12:00] VITALS: BP 121/92
--- NOTE | 2018-04-27 15:11 | NUR ---
Patient asked for cough medicine. Medicated per order. Verbalized relief.
[2018-04-27 16:00] VITALS: BP 111/43; BP 121/63
[2018-04-27 20:00] VITALS: BP 148/70
--- NOTE | 2018-04-27 21:34 | NUR ---
TESSALON PEARLS AND VISTARIL GIVEN PER PRN ORDER AND PATIENT REQUEST FOR C/O COUGH AND INABILITY TO SLEEP. SEE EMAR. REINFORCED USE OF CALL LIGHT.
[2018-04-28] VITALS: BP 114/36
[2018-04-28 07:37] LABS: BUN 9 mg/dl (7-24); CHLORIDE 103 mmol/L (98-107); CREATININE 0.79 mg/dL (0.55-1.02); POTASSIUM 4.6 mmol/L (3.5-5.1); SODIUM 135 mmol/L (136-145)
[2018-04-28 08:00] VITALS: BP 108/62
--- NOTE | 2018-04-28 09:00 | NUR ---
case management visits with patient, patient denies any home needs at this time
--- NOTE | 2018-04-28 10:54 | NUR ---
MEDICATED WITH TESSALON PEARLS FOR PERSISTENT COUGH. WILL MONITOR FOR EFFECTIVENESS.
--- NOTE | 2018-04-28 11:30 | NUR ---
PT STATES TESSALON PEARLS EFFECTIVE FOR COUGH.
[2018-04-28 12:00] VITALS: BP 119/52
[2018-04-28 16:00] VITALS: BP 124/51
[2018-04-28 20:00] VITALS: BP 129/67
--- NOTE | 2018-04-28 20:00 | NUR ---
PATIENT REQUESTED AND WAS MEDICATED WITH TESSALON PEARLS PER PRN ORDER FOR COUGH. PATIENT WAS UP AMBULATING IN THE [place].
--- NOTE | 2018-04-28 23:25 | NUR ---
PATIENT MEDICATED WITH TESSALAN NATASHA AND VISTARIL PER PRN ORDER AND PATIENT REQUEST FOR COUGH AND INABILITY TO SLEEP. SEE EMAR. REINFORCED USE OF CALL LIGHT
--- NOTE | 2018-04-28 23:56 | NUR ---
24 HR chart check completed.
[2018-04-29] VITALS: BP 133/47
--- NOTE | 2018-04-29 01:00 | NUR ---
PATIENT RESTING QUIETLY. NO FURTHER C/O VOICED.
[2018-04-29 08:00] VITALS: BP 121/47
[2018-04-29] MEDS ORDERED: BENZONATATE100 M1 PO (09:13)
[2018-04-29] MEDS ORDERED: LEVOFLOXACIN500 MG PO (09:13)
[2018-04-29] MEDS ORDERED: PREDNISONE10 MG PO (09:13)
--- NOTE | 2018-04-29 13:14 | NUR ---
Discharge instructions reviewed with patient/family. Patient receptive and verbalizes understanding. Follow-up care arranged. Written instructions given to patient/family. WENT OVER DISCHARGE PACKET WITH PATIENT. IV REMOVED, PATIENT TOLERATED WELL. PATIENT AWARE OF NEW PRESCRIPTIONS IN PHARMACY. PATIENT AWARE OF FOLLOW UP APPOINTMENT. PATIENT'S BROUGHT PORTABLE OXYGEN TANK FOR PATIENT. PATIENT AWARE THAT SHE NEEDS TO WEAR 2L O2 WHILE AMBULATING. PATIENT ACCOMPANIED OFF FLOOR VIA WHEELCHAIR BY STAFF AND FAMILY AT THIS TIME. PREETHI MOHAN E
--- NOTE | 2018-04-29 13:52 | NUR ---
PULSE OX ON R/A AT REST 94%, PT. AMBULATED IN [place] ON R/A, PULSE OX DECREASING TO 85%, O2 PLACED ON 2LM, INCREASING TO 95%, CONTINUED WALK ON 2LM SAT 94, HEART RATE 86. PT. CONTINUED WALK WITH TWO STOPS, PT. RETURNED TO ROOM, RECOVERY PULSE OX 96 ON 2L, HEART RATE 88. B/P PRIOR TO WALK WAS 120/51 AND AFTER WALK 136/66. PETE NUNN CALLED WITH RESULTS, PT. HAS A CONCENTRATOR AND A PORTABLE TANK THAT HER YAZDANISM HAS PROVIDIED FOR HER DUE TO INABILTY TO PAY. PT. IS TO USE 2LM O2 WHEN AMBULATING. RN AWARE.
[2018-08-31] MEDS ORDERED: PROAIR HFA8.5 GM INH (21:06)
[2018-09-11] MEDS ORDERED: SINGULAIR10 M1 PO (09:20)
[2018-09-11] MEDS ORDERED: PROAIR HFA8.5 GM INH (09:20)
[2018-09-11] MEDS ORDERED: PREDNISONE10 MG PO (09:20)
[2018-09-11] MEDS ORDERED: MUCINEX1200 M1 PO (09:20)
== END 2018-04-29 13:14 | disposition home or self-care (01) | DRG 190 ==
LOC: ED 09:52 → 4E 12:40 → EDHOLD 12:40 → 4E 13:04
PROVIDERS: Emergency Medicine; Family Medicine; Internal Medicine; Registered Nurse; ADMIT Internal Medicine
DX: J44.1 Chronic obstructive pulmonary disease with (acute) exacerbation (principal); J18.9 Pneumonia, unspecified organism; E44.1 Mild protein-calorie malnutrition; E87.1 Hypo-osmolality and hyponatremia; J96.11 Chronic respiratory failure with hypoxia; J44.0 Chronic obstructive pulmonary disease with (acute) lower respiratory infection; I10 Essential (primary) hypertension; F32.9 Major depressive disorder, single episode, unspecified; I73.9 Peripheral vascular disease, unspecified; I25.10 Atherosclerotic heart disease of native coronary artery without angina pectoris; E55.9 Vitamin D deficiency, unspecified; E78.00 Pure hypercholesterolemia, unspecified; M94.0 Chondrocostal junction syndrome [Tietze]; E07.9 Disorder of thyroid, unspecified; F41.9 Anxiety disorder, unspecified; F17.210 Nicotine dependence, cigarettes, uncomplicated; Z90.710 Acquired absence of both cervix and uterus; Z98.42 Cataract extraction status, left eye; Z98.41 Cataract extraction status, right eye; Z93.0 Tracheostomy status; Z82.49 Family history of ischemic heart disease and other diseases of the circulatory system; Z83.3 Family history of diabetes mellitus; Z79.82 Long term (current) use of aspirin; Z68.27 Body mass index [BMI] 27.0-27.9, adult

== ENCOUNTER 2018-08-07 17:45 | Inpatient (IN) | payer SELFPAY ==
[~2018-08-07] VITALS: Ht 162.6 cm; Wt 82.3 kg
--- NOTE | ~2018-08-07 | CON ---
[place], [place] REPORT OF CONSULTATION NAME: TACO MIRELES UNIT #: [id number] ROOM: 408 DOCTOR: KJ PENN MD BIRTHDATE: [birth year] DOS: 08/09/2018 PULMONARY CONSULTATION, EVALUATION, AND MANAGEMENT CONSULTATION REQUESTED BY: Hospitalist service. REASON FOR CONSULTATION: For assessment of chronic obstructive pulmonary disease exacerbation. HISTORY OF PRESENT ILLNESS: A 63-year-old white female patient known to me with history of chronic hypoxic respiratory failure, chronic obstructive pulmonary disease. The patient admitted to the office since 08/07/2018. The patient was admitted to the hospital, as the patient came to the hospital with symptoms of having progressive increased symptoms of shortness of breath associated with coughing, chest congestion, and wheezing. The symptoms had now been resolving. The patient using home nebulizer medication, bronchodilators, and other treatment. The patient continued to smoke cigarettes, at this time actively and not able to stop it. She has been started on corticosteroids. Ordered the bronchodilators and other treatments. The patient stated significant improvement in symptoms have occurred since hospitalization with the reduction of coughing, wheezing, and shortness of breath. REVIEW OF SYSTEMS: CONSTITUTIONAL: Fatigue and tiredness noted. Denies symptoms of fever or chills. EYES: Denies any burning, redness, or tenderness. EARS, NOSE, THROAT SYMPTOMS: Denies sore throat, hoarseness, otalgia, postnasal drainage, or epistaxis. CARDIOVASCULAR: Denies anginal pain, edema, or pain of the lower extremity. GASTROINTESTINAL: Denies dysphagia, nausea, vomiting, diarrhea, abdominal pain, hematemesis, melena, or hematochezia. SKIN: Denies abnormal lesions or rashes. CENTRAL NERVOUS SYSTEM: No dizziness, headache, diplopia, or syncopal episodes. Remaining systems were reviewed with the patient, they were noted all negative. PAST MEDICAL HISTORY: 1. The patient was known with history of chronic hypoxic respiratory failure. 2. The patient with end-stage chronic obstructive pulmonary disease. 3. The patient had mild tracheal stenosis, secondary to past tracheostomy. 4. Moderate obesity. 5. 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 6. Iatrogenic pneumothorax. The patient's CT-guided needle aspiration biopsy in 09/2016 of the right upper lobe. PAST SURGICAL HISTORY: 1. Lumbar laminectomy. 2. Oophorectomy. 3. Partial hysterectomy. [place], [place] REPORT OF CONSULTATION NAME: TACO MIRELES UNIT #: [id number] ROOM: [facility] DOCTOR: KJ PENN MD BIRTHDATE: [birth year] 4. Tracheostomy. 5. Resection of right upper lung nodule, possible suspicion of MAC infection. 6. CT-guided needle aspirate biopsy of the right upper lobe. SOCIAL HISTORY: The patient is , has 2 children, lives at home. Denies history of alcohol use or illicit drug use. Tobacco use noted since teenager, pack of cigarettes a day, active use. FAMILY HISTORY: The patient's father at 40 years old, complication of diabetes mellitus. Mother at age of 77, complications of myocardial infarction. CURRENT MEDICATIONS: Administered for the patient on this hospitalization were noted as azithromycin, Tessalon Perles, Singulair, Lovenox for DVT prophylaxis, hydroxyzine, losartan, Imdur, Plavix, vitamin D, Wellbutrin, Lipitor, IV Rocephin, Solu-Medrol 40 mg b.i.d., DuoNeb and other p.r.n. meds. DRUG ALLERGIES: Noted as no known drug allergies. PHYSICAL EXAMINATION: GENERAL: A 63-year-old female patient currently noted comfortable, sitting on the bed this morning of assessment without any distress. Height of 5 feet 4 inches, weight of 181 pounds, BMI 31. VITAL SIGNS: For the patient, which are recorded shows a normal temperature, respiratory rate of 18, heart rate 77, blood pressure 162/62. T-max since admission noted as normal. The pulse oxygen saturation recorded on 3 liters nasal cannula 100% saturation. HEENT: Examination shows head was atraumatic. Moderate obesity. NECK: Supple. CARDIOVASCULAR: S1, S2 audible. LUNGS: Moderate reduction in breath sounds without any crackles or rhonchi. There is no wheezing. ABDOMEN: Soft, nontender, and moderate obesity, bowel sounds present. EXTREMITIES: Noted without any acute edema. MUSCULOSKELETAL: Noted without any acute deformities. CENTRAL NERVOUS SYSTEM: Noted without any gross focal neurologic deficit. LABORATORY DATA: Assess for this consultation. CBC on admission, eosinophils of 2.8%, WBC count 7.1, normal hemoglobin and hematocrit. CMP as normal BUN and creatinine. Glucose 100, remaining CMP was normal. Lipase was normal. CBC on 08/08/2018 essentially noted as normal test. BMP on 08/08/2018, glucose 144, otherwise normal electrolytes. Blood culture, no bacterial growth on 08/07/2018. CBC this morning remains normal. BMP this morning, glucose 134, otherwise normal electrolytes. Two-view chest x-ray done on admission, the patient was noted with 1 cm nodule was noted in the right lower lobe. Nodular density has been seen with the previous chest x-ray as well as in the previous CT scan of the patient 02/2017. IMPRESSION: 1. The patient will be currently admitted to the hospital noted with acute [place], [place] REPORT OF CONSULTATION NAME: TACO MIRELES UNIT #: [id number] ROOM: [facility] DOCTOR: KJ PENN MD BIRTHDATE: [birth year] exacerbation of chronic obstructive pulmonary disease, chronic O2 dependence, acute bronchitis, seems to be resolved in the past; however, significantly with current medical management. 2. Chronic oxygen dependence. 3. Chronic respiratory failure. 4. A nodular density in the right lower lobe. PLAN OF MANAGEMENT: The patient could be discharged home on oral medication at the present time. No changes in treatment would be advised, otherwise. Counseling about tobacco cessation was done with the patient. The patient does not follow up in the office, but needs to be assessed outpatient and will be recommended possible repeating a CT scan of the chest to reassess. Other therapy, plan of management in the meantime to be continued. KJ MUIR MD CM:CONSTR:REPORT OF CONSULTATION 1206 08/09/18 1537 interface
[~2018-08-07 17:45] MED LIST changes: +BENZONATATE100 M1 PO; +LIPITOR40 MG PO; +WELLBUTRIN XL150 MG PO
[2018-08-07 18:32] VITALS: BP 111/87
[2018-08-07 18:44] LABS: BASO # 0.1 10*3/uL (0.0-0.1); BASO % 1.3 % (0.0-1.0); EOS # 0.2 10*3/uL (0.0-0.4); EOS % 2.8 % (1.0-4.0); HEMATOCRIT 39.7 % (37.0-47.0); HEMOGLOBIN 12.7 g/dl (12.0-16.0); LYMPH # 2.4 10*3/uL (1.3-4.4); LYMPH % 33.1 % (27.0-41.0); MEAN CELL VOLUME 88.4 fl (81.0-99.0); MEAN CORPUSCULAR HGB 28.3 pg (27.0-31.0); MEAN PLATELET VOLUME 9.3 fl (9.6-12.3); MONO # 0.7 10*3/uL (0.1-1.0); MONO % 9.7 % (3.0-9.0); NEUT # 3.8 10*3/uL (2.3-7.9); NEUT % 52.8 % (47.0-73.0); PLATELET COUNT AUTOMATED 307 10*3/uL (130-400); RED BLOOD COUNT 4.49 10*6/uL (4.10-5.10); RED CELL DISTRI WIDTH 15.7 % (0-14.5); WHITE BLOOD COUNT 7.1 10*3/uL (4.8-10.8)
[2018-08-07 19:02] LABS: ALBUMIN 3.6 gm/dl (3.1-4.5); ALKALINE PHOSPHATASE 76 U/L (45-117); BUN 10 mg/dl (7-24); CHLORIDE 100 mmol/L (98-107); CREATININE 0.83 mg/dL (0.55-1.02); LIPASE 154 U/L (73-393); SGPT/ALT 40 U/L (12-78); SODIUM 136 mmol/L (136-145); TOTAL PROTEIN 7.4 gm/dL (6.4-8.2)
[2018-08-07 19:03] LABS: POTASSIUM 4.8 mmol/L (3.5-5.1); SGOT/AST 31 IU/L (3-35)
--- NOTE | 2018-08-07 21:08 | NUR ---
ATTEMPTED TO AMBULATE PATIENT TO MEASURE SPO2 WITH AMBULATION. PATIENT UNABLE TO STAND BECOMES VERY SHORT OF BREATH SITTING AT BEDSIDE. AUDIBLE WHEEZING WITH DECREASE IN SPO2 TO 85%. ADVISED PROVIDER OF THIS.
[2018-08-07 21:40] VITALS: BP 134/57
--- NOTE | 2018-08-07 21:40 | NUR ---
Time: 2139 A 63 year old FEMALE admitted to under services of AINSLEY FIGUEROA DO, Pt. arrived via ambulatory from ER. Chief complaint: SHORTNESS OF BREATH. ANTHONY MORENO
--- NOTE | 2018-08-07 22:07 | NUR ---
MED REQ UPDATED.
[2018-08-08] VITALS: BP 120/51
[2018-08-08 03:33] LABS: BILIRUBIN NEGATIVE (NEGATIVE); BLOOD NEGATIVE (NEGATIVE); CLARITY CLEAR (CLEAR); COLOR YELLOW (YELLOW); GLUCOSE NEGATIVE (NEGATIVE); KETONE NEGATIVE (NEGATIVE); LEUKO ESTERASE NEGATIVE (NEGATIVE); NITRITE NEGATIVE (NEGATIVE); PH 6.5 (5.0-9.0); UROBILINOGEN 0.2 E.U./dl (0.2-1.0)
[2018-08-08 04:11] LABS: RBC 0-2 rbc/hpf (0-2); WBC 0-2 wbc/hpf (0-5)
[2018-08-08 06:15] LABS: BASO % 0.2 % (0.0-1.0); HEMATOCRIT 38.7 % (37.0-47.0); HEMOGLOBIN 12.2 g/dl (12.0-16.0); LYMPH # 0.9 10*3/uL (1.3-4.4); MEAN CORPUSCULAR HGB 27.7 pg (27.0-31.0); MEAN CORPUSCULAR HGB CONC 31.5 g/dl (33.0-37.0); MONO # 0.1 10*3/uL (0.1-1.0); MONO % 0.7 % (3.0-9.0); NEUT # 7.4 10*3/uL (2.3-7.9); NEUT % 87.7 % (47.0-73.0); PLATELET COUNT AUTOMATED 258 10*3/uL (130-400); RED CELL DISTRI WIDTH 15.4 % (0-14.5); WHITE BLOOD COUNT 8.4 10*3/uL (4.8-10.8)
[2018-08-08 06:57] LABS: BUN 13 mg/dl (7-24); CHLORIDE 103 mmol/L (98-107); CHOLESTEROL 164 mg/dL (<200); CREATININE 0.82 mg/dL (0.55-1.02); FREE T4 0.78 ng/dl (0.76-1.46); HDL CHOLESTEROL 74 mg/dl (40-60); LDL CHOLESTEROL 84 mg/dL (9-159); POTASSIUM 4.5 mmol/L (3.5-5.1); SODIUM 139 mmol/L (136-145); TRIGLYCERIDES 31 mg/dl (<150); VLDL CHOLESTEROL 6 mg/dL (6-40)
[2018-08-08 07:04] LABS: THYROID STIM HORMONE (HS) 0.433 uIU/ml (0.358-4.75)
--- NOTE | 2018-08-08 07:25 | NUR ---
24 HR chart check completed.
[2018-08-08 08:00] VITALS: BP 124/48
--- NOTE | 2018-08-08 09:00 | NUR ---
Sales Designer in to talk to patient. Patient states lives at home with . There are few steps in the home. Physician: [facility] Home health services: none Patient's level of ADLs: INDEPENDENT Patient has working utilities: all working DME: home oxygen and portable tanks Follow-up physician's appointment after d/c: will be made by hosptialist nurse director upon discharge Does patient want to access PORTAL?: no Discharge plan discussed with patient, patient lives at home with , she is independent in adls and ambulation, she has home oxygen and portable tanks that is paid for by her [employer]. patient is self pay and states she isn't eligible for medicaid and isn't able to afford insurance, patient states she will be going home when able and denies any home needs. SHIRLEY CASTELLON
[2018-08-08 09:08] LABS: VITAMIN D, 25-HYDROXY 42.9 ng/mL (30-100)
[2018-08-08 12:00] VITALS: BP 105/49
[2018-08-08 16:00] VITALS: BP 116/53
[2018-08-08 20:00] VITALS: BP 135/53
--- NOTE | 2018-08-08 23:30 | NUR ---
PATIENT IS RESTING IN BED WITH EASY AND REGULAR RESPERS ON 2L O2 VIA NASAL CANNULA. ASSESSMENT IS COMPLETE WITH NO C/O OR S/S OF DISTRESS NOTED AT THIS TIME. BED IS LOW, LOCKED, AND CALL LIGHT IS WITHIN REACH. SEE SHIFT ASSESSMENT.
[2018-08-09] VITALS: BP 133/58
--- NOTE | 2018-08-09 00:30 | NUR ---
DR. AVILES CONTACTED AT THIS TIME REGARDING MULTIPLE IV STICKS W/O SUCCESS, AND IV ABX. DUE AT 0000. SEE NEW ORDERS.
--- NOTE | 2018-08-09 01:00 | NUR ---
PATIENT IS RESTING WITH EASY AND REGULAR RESPERS ON 2L O2 VIA NASAL CANNULA. CALL LIGHT IS WITHIN REACH.
--- NOTE | 2018-08-09 04:00 | NUR ---
PATIENT IS RESTING IN BED WITH EASY AND REGULAR RESPERS ON 2L O2 VIA NASAL CANNULA. CALL LIGHT IS WITHIN REACH.
[2018-08-09 06:42] LABS: BASO % 0.1 % (0.0-1.0); HEMATOCRIT 38.7 % (37.0-47.0); LYMPH % 11.6 % (27.0-41.0); MEAN CELL VOLUME 89.2 fl (81.0-99.0); MEAN CORPUSCULAR HGB 27.6 pg (27.0-31.0); MEAN PLATELET VOLUME 9.2 fl (9.6-12.3); MONO # 0.4 10*3/uL (0.1-1.0); MONO % 5.2 % (3.0-9.0); NEUT % 82.5 % (47.0-73.0); PLATELET COUNT AUTOMATED 280 10*3/uL (130-400); RED BLOOD COUNT 4.34 10*6/uL (4.10-5.10); RED CELL DISTRI WIDTH 15.5 % (0-14.5); WHITE BLOOD COUNT 8.4 10*3/uL (4.8-10.8)
[2018-08-09 06:49] LABS: BUN 13 mg/dl (7-24); CHLORIDE 99 mmol/L (98-107); CREATININE 0.84 mg/dL (0.55-1.02); POTASSIUM 4.9 mmol/L (3.5-5.1); SODIUM 136 mmol/L (136-145)
[2018-08-09 08:00] VITALS: BP 126/62
--- NOTE | 2018-08-09 09:00 | NUR ---
case management visits with patient, patient will be going home when able, denies any home needs
[2018-08-09] MEDS ORDERED: ZITHROMAX250 MG PO (09:12)
[2018-08-09] MEDS ORDERED: PREDNISONE10 MG PO (09:12)
--- NOTE | 2018-08-09 09:36 | NUR ---
Discharge instructions reviewed with patient/family. Patient receptive and verbalizes understanding. Follow-up care arranged. Written instructions given to patient/family. MYRA REZA
[2018-08-31] MEDS ORDERED: PROAIR HFA8.5 GM INH (21:06)
[2018-09-11] MEDS ORDERED: PROAIR HFA8.5 GM INH (09:20)
[2018-09-11] MEDS ORDERED: MUCINEX1200 M1 PO (09:20)
[2018-09-11] MEDS ORDERED: SINGULAIR10 M1 PO (09:20)
[2018-09-11] MEDS ORDERED: PREDNISONE10 MG PO (09:20)
== END 2018-08-09 09:36 | disposition home or self-care (01) | DRG 193 ==
LOC: ED 17:45 → 4E 21:10 → EDHOLD 21:10 → 4E 21:22
PROVIDERS: Family Medicine; Physician Assistant; Student in an Organized Health Care Education/Training Program; ADMIT Internal Medicine
DX: J18.9 Pneumonia, unspecified organism (principal); J96.21 Acute and chronic respiratory failure with hypoxia; J44.1 Chronic obstructive pulmonary disease with (acute) exacerbation; J44.0 Chronic obstructive pulmonary disease with (acute) lower respiratory infection; I10 Essential (primary) hypertension; E66.09 Other obesity due to excess calories; J20.9 Acute bronchitis, unspecified; R73.9 Hyperglycemia, unspecified; F41.9 Anxiety disorder, unspecified; F17.219 Nicotine dependence, cigarettes, with unspecified nicotine-induced disorders; F32.9 Major depressive disorder, single episode, unspecified; I73.9 Peripheral vascular disease, unspecified; I25.10 Atherosclerotic heart disease of native coronary artery without angina pectoris; Z71.6 Tobacco abuse counseling; Z99.81 Dependence on supplemental oxygen; Z90.711 Acquired absence of uterus with remaining cervical stump; Z98.42 Cataract extraction status, left eye; Z98.41 Cataract extraction status, right eye; Z82.49 Family history of ischemic heart disease and other diseases of the circulatory system; Z83.3 Family history of diabetes mellitus; Z86.74 Personal history of sudden cardiac arrest; Z79.82 Long term (current) use of aspirin; Z79.899 Other long term (current) drug therapy; Z79.02 Long term (current) use of antithrombotics/antiplatelets; Z90.722 Acquired absence of ovaries, bilateral; Z68.31 Body mass index [BMI] 31.0-31.9, adult

== ENCOUNTER → 2018-09-14 | Outpatient (CLI) | payer SELFPAY ==
[~2018-09-14] MED LIST changes: +PROAIR HFA8.5 GM INH
== END | disposition home or self-care (01) ==
LOC: RESCLI 01:21
DX: R60.0 Localized edema (principal); J43.9 Emphysema, unspecified; E78.2 Mixed hyperlipidemia; I11.9 Hypertensive heart disease without heart failure; F32.9 Major depressive disorder, single episode, unspecified; Z79.899 Other long term (current) drug therapy; Z88.8 Allergy status to other drugs, medicaments and biological substances

== ENCOUNTER 2018-12-03 21:07 | Inpatient (IN) | payer SELFPAY ==
[~2018-12-03] VITALS: Ht 162.5 cm; Wt 81.6 kg
[2018-12-03 21:10] VITALS: BP 161/83
[2018-12-03 21:25] LABS: BASO # 0.1 10*3/uL (0.0-0.1); BASO % 1.1 % (0.0-1.0); EOS # 0.3 10*3/uL (0.0-0.4); EOS % 2.6 % (1.0-4.0); HEMATOCRIT 42.2 % (37.0-47.0); HEMOGLOBIN 13.1 g/dl (12.0-16.0); LYMPH # 3.3 10*3/uL (1.3-4.4); LYMPH % 34.5 % (27.0-41.0); MEAN CELL VOLUME 88.5 fl (81.0-99.0); MEAN CORPUSCULAR HGB 27.5 pg (27.0-31.0); MEAN PLATELET VOLUME 9.1 fl (9.6-12.3); MONO % 10.6 % (3.0-9.0); NEUT # 4.8 10*3/uL (2.3-7.9); PLATELET COUNT AUTOMATED 364 10*3/uL (130-400); RED BLOOD COUNT 4.77 10*6/uL (4.10-5.10); RED CELL DISTRI WIDTH 13.6 % (0-14.5); WHITE BLOOD COUNT 9.5 10*3/uL (4.8-10.8)
[2018-12-03 21:35] LABS: ACT PARTIAL THROMBO TIME 25.6 SECONDS (20.0-32.1); INTERNATIONAL NORM RATIO 0.9 (2.0-3.5)
[2018-12-03 21:47] LABS: ALBUMIN 4.1 gm/dl (3.1-4.5); ALKALINE PHOSPHATASE 73 U/L (45-117); BUN 10 mg/dl (7-24); CHLORIDE 102 mmol/L (98-107); CREATININE 0.76 mg/dL (0.55-1.02); POTASSIUM 4.4 mmol/L (3.5-5.1); SGOT/AST 24 IU/L (3-35); SGPT/ALT 28 U/L (12-78); SODIUM 136 mmol/L (136-145); TOTAL PROTEIN 7.5 gm/dL (6.4-8.2)
[2018-12-03 21:48] LABS: TROPONIN I < 0.015 ng/ml (<0.045)
[2018-12-03 23:36] VITALS: BP 142/64
[2018-12-04 00:17] VITALS: BP 135/57
--- NOTE | 2018-12-04 01:32 | NUR ---
A 63, admitted to , under the services of BRADEN Wiggins DO with a diagnosis of COPD EXACERBATION. Chief complaint is SOB. Patient arrived via bed from ER. Monitor applied. Initial assessment completed. Vital signs taken and recorded. BRADEN WIGGINS DO notified of admission to the unit. Orders received. See assessment for past medical history, medications and allergies. Patient and/or family oriented to unit. [address] visitation policy reviewed. Clothing/patient valuable form completed. RASH NOTED TO BILATERAL BREASTS. PER PT THIS IS CAUSED BY "A DISEASE DAVID ALWAYS HAD." KEENA JOHNSTON
[2018-12-04 03:15] LABS: HEMOGLOBIN 11.7 g/dl (12.0-16.0); MEAN CELL VOLUME 88.4 fl (81.0-99.0); MEAN CORPUSCULAR HGB 27.2 pg (27.0-31.0); MEAN CORPUSCULAR HGB CONC 30.8 g/dl (33.0-37.0); MEAN PLATELET VOLUME 9.2 fl (9.6-12.3); PLATELET COUNT AUTOMATED 302 10*3/uL (130-400); RED CELL DISTRI WIDTH 13.8 % (0-14.5); WHITE BLOOD COUNT 9.7 10*3/uL (4.8-10.8)
[2018-12-04 03:24] LABS: ALBUMIN 3.7 gm/dl (3.1-4.5); ALKALINE PHOSPHATASE 63 U/L (45-117); BUN 9 mg/dl (7-24); CHLORIDE 103 mmol/L (98-107); CREATININE 0.75 mg/dL (0.55-1.02); PHOSPHOROUS 3.3 mg/dL (2.5-4.9); POTASSIUM 4.2 mmol/L (3.5-5.1); SGOT/AST 19 IU/L (3-35); SGPT/ALT 31 U/L (12-78); SODIUM 136 mmol/L (136-145)
[2018-12-04 03:45] LABS: PLATELET SUFFICIENCY NORMAL (NORMAL); TOTAL CELLS COUNTED 100 #CELLS
--- NOTE | 2018-12-04 07:57 | NUR ---
REGULAR DIET PER DR REYES
[2018-12-04 08:00] VITALS: BP 128/62
--- NOTE | 2018-12-04 09:00 | NUR ---
Mutual Fund Accountant in to talk to patient. Patient states lives at home with . There are few steps in the home. Physician: [facility] Home health services: none Patient's level of ADLs: INDEPENDENT Patient has working utilities: all working DME: home oxygen, portable tanks, nebulizer Follow-up physician's appointment after d/c: will be made by hospitalist nurse director upon discharge Does patient want to access PORTAL?: no Discharge plan discussed with patient, she lives at home with , she is independent in adls and ambulation, she has home oxygen and portable tanks that is paid for by her religion, she states she remains over resourced for applying for medicaid, she denies any needs at this time, case management will follow. SHIRLEY CASTELLON
[2018-12-04 12:00] VITALS: BP 122/68
--- NOTE | 2018-12-04 12:20 | NUR ---
PTS HOME MEDICATIONS VERIFIED. DR REYES NOTIFIED
--- NOTE | 2018-12-04 14:43 | NUR ---
Occupational therapy orders received and chart reviewed. Patient not feeling up to an OT evaluation at this time. Patient requesting OT return tomorrow. Will follow up with patient when appropriate. Thank you. Germaine Upton, OTR/L
--- NOTE | 2018-12-04 14:43 | NUR ---
PHYSICAL THERAPY Physical therapy evaluation attempted however Pt refused due to not feeling well. Will attempt later. Thank you Beba Fontana, PT, DPT
[2018-12-04 16:00] VITALS: BP 96/60
[2018-12-04 20:00] VITALS: BP 134/52
[2018-12-05] VITALS: BP 132/54
[2018-12-05 06:22] LABS: ALBUMIN 3.3 gm/dl (3.1-4.5); ALKALINE PHOSPHATASE 50 U/L (45-117); BUN 14 mg/dl (7-24); CHLORIDE 101 mmol/L (98-107); CREATININE 0.66 mg/dL (0.55-1.02); POTASSIUM 4.4 mmol/L (3.5-5.1); SGOT/AST 10 IU/L (3-35); SGPT/ALT 22 U/L (12-78); SODIUM 135 mmol/L (136-145)
[2018-12-05 07:14] LABS: BASO % 0.1 % (0.0-1.0); HEMATOCRIT 33.8 % (37.0-47.0); HEMOGLOBIN 10.7 g/dl (12.0-16.0); LYMPH # 0.9 10*3/uL (1.3-4.4); LYMPH % 13.7 % (27.0-41.0); MEAN CELL VOLUME 88.5 fl (81.0-99.0); MEAN CORPUSCULAR HGB CONC 31.7 g/dl (33.0-37.0); MONO # 0.7 10*3/uL (0.1-1.0); MONO % 10.3 % (3.0-9.0); NEUT # 5.1 10*3/uL (2.3-7.9); NEUT % 75.3 % (47.0-73.0); PLATELET COUNT AUTOMATED 295 10*3/uL (130-400); RED BLOOD COUNT 3.82 10*6/uL (4.10-5.10); RED CELL DISTRI WIDTH 13.9 % (0-14.5); WHITE BLOOD COUNT 6.8 10*3/uL (4.8-10.8)
[2018-12-05 08:00] VITALS: BP 128/62
--- NOTE | 2018-12-05 09:00 | NUR ---
Occupational Therapy evaluation completed on 4 with full eval to follow. Precautions include SOB w/ min exertion, oxygen dependent @ 2 LPM, use of bedside commode, limited activity tolerance, low complexity level 58025. Recommend OT to address energy conservation/work simplification education and ADL carryover,diaphramatic breathing and standing tolerance for ADLs per POC and return home w/ . Thank you. Eulalia Roman OTR/L
--- NOTE | 2018-12-05 09:00 | NUR ---
case management visits with patient, present, she stated she will be returning home when medically stable, no home needs at this time
--- NOTE | 2018-12-05 09:07 | NUR ---
PHYSICAL THERAPY Physical therapy evaluation completed, 4E. Full details to follow. Low complexity determined after chart review/ evaluation, [address]. PT to work on endurance, breathing technique, strength, endurance, and safety. Recommending home with no PT needs at discharge. thank you Beba Fontana, PT, DPT
[2018-12-05 12:00] VITALS: BP 131/59
--- NOTE | 2018-12-05 13:53 | NUR ---
OT NOTE Attempted to see pt this P.M. for OT session and upon arrival pt was supine in bed. Pt had complaints of increased fatigue and wanting to rest at this time due to "bad coughing making me SOB." Notified pt's nurse of pt's complaint of coughing. Will check back at a later time/date and continue with POC as able. ELHAM Feliciano/Shelby
--- NOTE | 2018-12-05 14:28 | NUR ---
PHYSICAL THERAPY PATIENT DECLINED THERAPY THIS AFTERNOON DUE OT BEING VERY SOB AND NOT FEELING WELL. WILL CHECK BACK AT A LATER DATE. ALBERT VILLELA MILITARY PROFESSIONAL
[2018-12-05 16:00] VITALS: BP 130/55
[2018-12-05 20:00] VITALS: BP 138/71
[2018-12-06] VITALS: BP 134/53
--- NOTE | 2018-12-06 04:37 | NUR ---
PATIENT RESTING IN BED WITH EYES CLOSED. NO SIGNS OR SYMPTOMS OF DISTRESS NOTED. RESPIRATIONS REGULAR AND NON-LABORED ON 2L N/C. AROUSES TO VERBAL STIMULI. DENIES COMPLAINTS OF PAIN OR DISCOMFORT. PATIENT AMBULATES TO BATHROOM PER SELF. WILL CONTINUE TO MONITOR. CALL LIGHT IN REACH.
[2018-12-06 08:00] VITALS: BP 130/70
--- NOTE | 2018-12-06 09:00 | NUR ---
case management visits with patient, she states she will return home when medically stable and denies any home needs
--- NOTE | 2018-12-06 10:00 | NUR ---
PHYSICAL THERAPY PT SIDELYING IN BED UPON ARRIVAL. PT IDENTIIFED BY NAME AND . PT AGREED TO ALL THERAPY TREATMENT THIS VISIT. PT PERFORMED BED MOBILITY (I). PT PERFORMED STS FROM EOB (I) WITH VC'S FOR BREATHING CONSERVATION. PT GAIT TRAINED 15FT X1, 6FT X1 AND 7FTX1 WITH 2L O2 VIA NASAL CANULA. PT REQUIRED SHORT SEATED BREAKED AT END OF EACH GAIT. VC'S FOR BREATHING CONSERVATION AND PURSE LIP BREATHING GIVEN DURING ALL BREAKS. PT PERFORMED STS TO EOB (I). EDUCATION FOR BREATHING EXERCISE THROUGHOUT THE DAY GIVEN. PT SITTING EOB WITH 2L O2 VIA NASAL CANULA, CALL LIGHT WITH IN ARMS REACH AND TRAY TABLE BY BED AT END OF SESSION. PT SEEN 1:1 FOR 15MINS. EAGLE MOYA PTA
--- NOTE | 2018-12-06 10:18 | NUR ---
OT NOTE Pt was seen this A.M. 1:1 for 15 minute OT session. Uppon arrival pt was supine in bed. Pt identified by name and and had no complaints at this time. Pt presented to therapy with continuous 2L-O2 via NC which she remained on throughout the entire session. Pt transferred supine to sit EOB with SBA. Sit to stand completed from bed level with CGA for safety followed by functional mobility into the bathroom with CGA. Pt transferred on/off standard commode with SBA. Clothing management completed with SBA. Pt then stood sink side while washing her hands with SBA. Throughout pt was educated on energy conservation and work simplification techniques for increased I and enhanced safety. Pt's SpO2 stayed within functional limits throughout however did require one seated rest break. Pt was left sitting upright on the EOB with call light in hand. continue with rec D/C plan to home with . ELHAM Feliciano/Shelby
[2018-12-06 12:00] VITALS: BP 132/70
[2018-12-06 16:00] VITALS: BP 136/63
[2018-12-06 20:00] VITALS: BP 139/66
--- NOTE | 2018-12-06 20:08 | NUR ---
Neurological: AAOX3 Respiratory: NONLABORED, 2L O2 DEPENDENT Breath sounds: DIMINISHED T/O ALL LUNG DOOLEY Cough: DRY, NONPRODUCTIVE Cardiovascular: HRR, DENIES CP/PRESSURE, NO EDEMA, PPP Gastrointestinal: NORMOACTIVE X4 QUADS, DENIES N/V/D/C, SOFT, NONTENDER, NONDISTENDED LAST BM 12/05 Genito/Urinary: DENIES DYSURIA Musculoskeketal: AMBULATORY W/ STEADY GAIT, SKIN INTACT PATIENT IS RESTING IN BED. ASSESSMENT IS COMPLETE WITH NO C/O OR S/S OF DISTRESS NOTED AT THIS TIME BED IS LOW, LOCKED, AND CALL LIGHT IS WITHIN REACH. QUINCY DEE A
[2018-12-07] VITALS: BP 145/70
--- NOTE | 2018-12-07 04:14 | NUR ---
PATIENT AROUSES EASILY FOR ADMINISTRATION OF AM MEDICATIONS. NO C/O OR S/S OF DISTRESS NOTED AT THS TIME. CALL LIGHT IS WITHIN REACH.
[2018-12-07 08:00] VITALS: BP 142/68
--- NOTE | 2018-12-07 08:00 | NUR ---
PATIENT ASSESSMENT COMPLETED AT THIS TIME. PATIENT NO COMPLAINTS OTHER THAN BEING SOB WITH EXERTION. PATIENT SHOWS NO SIGNS OF DISTRESS, RESP ARE ERND ON 2L NC DEPENDENTLY. BED IS LOCKED IN LOWEST POSITION, CALL LIGHT LEFT WITHIN REACH.
--- NOTE | 2018-12-07 09:00 | NUR ---
case management visits with patient, she denies any home needs, case management will follow
--- NOTE | 2018-12-07 11:30 | NUR ---
PATIENT COMPLAINED THAT AZITHROMAX WAS IRRITATED SITE. SITE WAS ASYMPTOMATIC AND FLUSHED W/O DIFFICULTY, STATE IT DID NOT HURT. ANOTHER IV SITE WAS ATTEMPTED PER PATIENT REQUEST FOR COMFORT, UNABLE TO ACHIEVE. PER PATIENT WANTS TO REMAIN WITH CURRENT SITE AND NO MORE ATTEMPTS FOR ANOTHER SITE.
[2018-12-07 12:00] VITALS: BP 160/66
--- NOTE | 2018-12-07 14:14 | NUR ---
OT NOTE Pt was seen this P.M. 1:1 for 19 minute OT session. Upon arrival pt was supine in bed. Pt identified by name and and had no complaints at this time. Pt presented to therapy with continuous 2L-O2 via NC which she remained on throughout the entire session. At rest pt's SpO2 was 94%. Pt was educated and provided with handouts for energy conservation and work simplification techniques. All questions answered and pt verbalized understanding. Functional mobility was then completed to the bathroom where she then required a seated rest break due to SpO2 dropping to 84%. After aprox 2 minutes of a seated rest with verbal prompts for breathing/relaxation techniques pt's SpO2 raised to 93%. Functional mobility then completed back to EOB where she was left sitting uproght with call light in hand, tray table in place, and phone in reach. Continue with rec D/C plan to home with . ELHAM Feliciano/Shelby
--- NOTE | 2018-12-07 15:02 | NUR ---
PHYSICAL THERAPY Patient presented to therapy in supine with head of bed elevated and report of feeling a little better. Patient says she is ready to walk now. Patient gives informed consent for treatment. Patient was identifed by name and on wristband. Patient is on 2 liters of spO2 VIA NASAL CANULA. Patient performed supine to sitting at EOB transfer with SBA. Patient performed sit to stand from EOB with SBA. Patient O2 SATS were recorded as 96% and pulse is 48. Patient performed ambulation with Walker and CGA X 1 with chair follow for 30' x 1 and then had to sit in chair, due to anxiety and SOB. O2 AT 84%. Patient sit to stand from low rolling chair with SBA. Patient ambulated again for 30' x 1 and Clsoe Supervision with break at 30 ft. Patient stadning rest break. Patient O2 SAT AT 93% and pulse at 105. Patient ambulated with Close Supervision another 60' x 1 to EOB where she sat. Patient's O2 SAT was recorded as 97% and pulse 79. Patient has severe anxiety and this aggravates her breathing difficulty. Patient was left in bedside chair with ROBB CLAYTON present changing patient's bed. Patient was 1:1 with this MANAGER OF DISASTER RECOVERY for 25 minutes total. EAR IHSAN VILLELA MANAGER OF DISASTER RECOVERY
[2018-12-07 16:00] VITALS: BP 149/57
[2018-12-07 20:00] VITALS: BP 157/66
[2018-12-08] VITALS: BP 125/57
--- NOTE | 2018-12-08 04:18 | NUR ---
24 HR chart check completed.
--- NOTE | 2018-12-08 05:22 | NUR ---
PATIENT AROUSES EASILY FOR ADMINISTRATION OF AM MEDICATIONS. CALL LIGHT IS WITHIN REACH.
[2018-12-08 07:15] LABS: BASO % 0.2 % (0.0-1.0); LYMPH # 0.7 10*3/uL (1.3-4.4); LYMPH % 10.7 % (27.0-41.0); MEAN CELL VOLUME 89.8 fl (81.0-99.0); MEAN CORPUSCULAR HGB 27.4 pg (27.0-31.0); MEAN CORPUSCULAR HGB CONC 30.6 g/dl (33.0-37.0); MEAN PLATELET VOLUME 9.7 fl (9.6-12.3); MONO # 0.3 10*3/uL (0.1-1.0); NEUT # 5.5 10*3/uL (2.3-7.9); NEUT % 83.2 % (47.0-73.0); PLATELET COUNT AUTOMATED 300 10*3/uL (130-400); RED BLOOD COUNT 4.01 10*6/uL (4.10-5.10); WHITE BLOOD COUNT 6.6 10*3/uL (4.8-10.8)
[2018-12-08 07:19] LABS: CREATININE 0.74 mg/dL (0.55-1.02)
--- NOTE | 2018-12-08 07:20 | NUR ---
PT AWAKE. REPORT RECEIVED FROM QUINCY MUJICA. BED LOW. CALL HUTCHISON IN REACH
[2018-12-08 08:00] VITALS: BP 136/66
--- NOTE | 2018-12-08 09:00 | NUR ---
case management visits with patient, she will return home when medically stable and denies any home needs
--- NOTE | 2018-12-08 11:40 | NUR ---
PT C/O SOB AND INCREASED ANXIETY. DR REYES NOTIFIED. SHE STATED SHE WILL PUT IN ORDERS
[2018-12-08 12:00] VITALS: BP 132/70
--- NOTE | 2018-12-08 12:36 | NUR ---
Patient resting quietly with no c/o discomfort. Respirations easy and regular. Vital signs stable. No overt distress. RUSSELL SANDERS
--- NOTE | 2018-12-08 12:53 | NUR ---
OT NOTE Attempted to see pt this P.M. for OT session and upon arrival pt was supine in bed. Pt had reports of feeling SOB due to previous "anxiety attack" pt requesting to rest at this time. Will check back at a later time/date and continue with POC as able. ELHAM Feliciano/Shelby
--- NOTE | 2018-12-08 13:05 | NUR ---
PHYSICAL THERAPY Patient was resting supine in bed this pm when appproached for therapy visit and stated she has had several episodes of increased SOB this date. Patient requested to stay in bed and rest this afternoon. Will continue per POC as able. Floyd Covarrubias, CUPOL[employer] CHARGER INSULATION
--- NOTE | 2018-12-08 14:38 | NUR ---
PHYSICAL THERAPY CO-SIGN I approve of the Physical Therapy notes written above. VEDA TOTH, PT, DPT
--- NOTE | 2018-12-08 15:17 | NUR ---
OCCUPATIONAL THERAPY CO-SIGN I approve of the Occupational Therapy notes written above. HENRIK BLACK OTR/Shelby
[2018-12-08 16:00] VITALS: BP 126/59
[2018-12-08 20:00] VITALS: BP 128/59
[2018-12-09] VITALS: BP 121/75
--- NOTE | 2018-12-09 01:07 | NUR ---
24 HR chart check completed.
[2018-12-09 08:00] VITALS: BP 124/68
--- NOTE | 2018-12-09 11:56 | NUR ---
PT STATES SHE IS VERY ANXIOUS AND FEELING SOB. BREATHING TREATMENT GIVEN. DR WILLETT INFORMED. ORDERS RECEIVED
[2018-12-09 12:00] VITALS: BP 133/62
[2018-12-09 16:00] VITALS: BP 131/65
[2018-12-09 20:00] VITALS: BP 133/62
[2018-12-10] VITALS: BP 140/64
--- NOTE | 2018-12-10 01:58 | NUR ---
24 HR chart check completed.
[2018-12-10 08:00] VITALS: BP 124/60
[2018-12-10] MEDS ORDERED: BENZONATATE100 M1 PO (09:21)
[2018-12-10] MEDS ORDERED: PREDNISONE10 MG PO (09:21)
[2018-12-10] MEDS ORDERED: ZITHROMAX250 MG PO (09:22)
--- NOTE | 2018-12-10 12:20 | NUR ---
Discharge instructions reviewed with patient/family. Patient receptive and verbalizes understanding. Follow-up care arranged. Written instructions given to patient/family. TRAVIS CASTELLANOS
== END 2018-12-10 13:20 | disposition home or self-care (01) | DRG 190 ==
LOC: ED 21:07 → 4E 12-04 00:14 → EDHOLD 12-04 00:14 → 4E 12-04 00:41
PROVIDERS: Internal Medicine; Student in an Organized Health Care Education/Training Program; ADMIT Emergency Medicine
DX: J44.0 Chronic obstructive pulmonary disease with (acute) lower respiratory infection (principal); J18.9 Pneumonia, unspecified organism; E44.1 Mild protein-calorie malnutrition; J96.11 Chronic respiratory failure with hypoxia; E87.1 Hypo-osmolality and hyponatremia; J44.1 Chronic obstructive pulmonary disease with (acute) exacerbation; I73.9 Peripheral vascular disease, unspecified; F32.9 Major depressive disorder, single episode, unspecified; E83.41 Hypermagnesemia; E66.9 Obesity, unspecified; R73.9 Hyperglycemia, unspecified; I10 Essential (primary) hypertension; I25.10 Atherosclerotic heart disease of native coronary artery without angina pectoris; F41.9 Anxiety disorder, unspecified; D64.9 Anemia, unspecified; F17.219 Nicotine dependence, cigarettes, with unspecified nicotine-induced disorders; Z71.6 Tobacco abuse counseling; Z86.74 Personal history of sudden cardiac arrest; Z87.01 Personal history of pneumonia (recurrent); Z98.42 Cataract extraction status, left eye; Z98.41 Cataract extraction status, right eye; Z90.711 Acquired absence of uterus with remaining cervical stump; Z95.828 Presence of other vascular implants and grafts; Z82.49 Family history of ischemic heart disease and other diseases of the circulatory system; Z83.3 Family history of diabetes mellitus; Z79.82 Long term (current) use of aspirin; Z79.899 Other long term (current) drug therapy; Z79.02 Long term (current) use of antithrombotics/antiplatelets; Z68.30 Body mass index [BMI] 30.0-30.9, adult

== ENCOUNTER → 2018-12-19 | Outpatient (CLI) | payer SELFPAY | END | disposition home or self-care (01) | LOC: RESCLI 01:30 | DX: J44.1 Chronic obstructive pulmonary disease with (acute) exacerbation (principal); J18.9 Pneumonia, unspecified organism; I10 Essential (primary) hypertension; E55.9 Vitamin D deficiency, unspecified; M79.89 Other specified soft tissue disorders; F17.200 Nicotine dependence, unspecified, uncomplicated; Z79.899 Other long term (current) drug therapy; Z88.8 Allergy status to other drugs, medicaments and biological substances ==

== ENCOUNTER 2019-01-23 00:49 | Inpatient (IN) | payer SELFPAY ==
[~2019-01-23] VITALS: Ht 162.5 cm; Wt 80.7 kg
--- NOTE | 2019-01-23 11:30 | NUR ---
A 63, admitted to 5E, under the services of HAMILTON Flanagan DO with a diagnosis of COPD EXACERBATION. Chief complaint is COUGH, FEVER, DYSPNEA. Patient arrived via wheel chair from [place]. Monitor applied. Initial assessment completed. Vital signs taken and recorded. HAMILTON FLANAGAN DO notified of admission to the unit. Orders received. See assessment for past medical history, medications and allergies. Patient and/or family oriented to unit. [address] visitation policy reviewed. Clothing/patient valuable form completed. ASHVIN GUZMAN
[2019-01-23 12:00] VITALS: BP 119/56
[2019-01-23 12:23] LABS: BASO # 0.1 10*3/uL (0.0-0.1); BASO % 0.9 % (0.0-1.0); EOS # 0.2 10*3/uL (0.0-0.4); EOS % 1.8 % (1.0-4.0); HEMATOCRIT 37.7 % (37.0-47.0); HEMOGLOBIN 11.5 g/dl (12.0-16.0); MEAN CELL VOLUME 87.9 fl (81.0-99.0); MEAN CORPUSCULAR HGB 26.8 pg (27.0-31.0); MEAN CORPUSCULAR HGB CONC 30.5 g/dl (33.0-37.0); MONO # 0.9 10*3/uL (0.1-1.0); MONO % 9.6 % (3.0-9.0); NEUT # 6.3 10*3/uL (2.3-7.9); NEUT % 66.4 % (47.0-73.0); PLATELET COUNT AUTOMATED 328 10*3/uL (130-400); RED BLOOD COUNT 4.29 10*6/uL (4.10-5.10); RED CELL DISTRI WIDTH 15.8 % (0-14.5); WHITE BLOOD COUNT 9.4 10*3/uL (4.8-10.8)
[2019-01-23 12:37] LABS: ALBUMIN 3.7 gm/dl (3.1-4.5); ALKALINE PHOSPHATASE 63 U/L (45-117); BUN 9 mg/dl (7-24); CHLORIDE 105 mmol/L (98-107); CREATININE 0.88 mg/dL (0.55-1.02); PHOSPHOROUS 3.5 mg/dL (2.5-4.9); POTASSIUM 4.4 mmol/L (3.5-5.1); SGOT/AST 21 IU/L (3-35); SGPT/ALT 30 U/L (12-78); SODIUM 138 mmol/L (136-145); TOTAL PROTEIN 7.1 gm/dL (6.4-8.2)
[2019-01-23] MEDS ORDERED: TESSALON PERLE100 MG PO (13:52)
[2019-01-23] MEDS ORDERED: LASIX20 MG PO (13:53)
[2019-01-23] MEDS ORDERED: CLARITIN10 MG PO (13:54)
[2019-01-23 16:00] VITALS: BP 110/75
--- NOTE | 2019-01-23 16:41 | NUR ---
DR MUIR NOTIFIED OF CONSULT. NO NEW ORDERS.
[2019-01-23 17:51] LABS: BILIRUBIN NEGATIVE (NEGATIVE); BLOOD NEGATIVE (NEGATIVE); CLARITY SL CLOUDY (CLEAR); COLOR YELLOW (YELLOW); GLUCOSE NEGATIVE (NEGATIVE); KETONE NEGATIVE (NEGATIVE); LEUKO ESTERASE NEGATIVE (NEGATIVE); NITRITE NEGATIVE (NEGATIVE); SPECIFIC GRAVITY 1.015 (1.005-1.030); UROBILINOGEN 0.2 E.U./dl (0.2-1.0)
--- NOTE | 2019-01-23 19:00 | NUR ---
REPORT RECEIVED FROM ASHVIN MUJICA. PT COMPLAINING OF CHEST PAIN AT THIS TIME. STAT EKG ORDERED AT THIS TIME. DR. FERRARA MADE AWARE. PT APPEARS SOB, O2 INTACT. CALL LIGHT IN REACH.
--- NOTE | 2019-01-23 19:30 | NUR ---
DR FERRARA NOTIFIED OF ACUTE CHEST PAIN AND OBTAINED EKG.
[2019-01-23 20:00] VITALS: BP 149/65
[2019-01-23 20:12] LABS: BUN 13 mg/dl (7-24); CHLORIDE 105 mmol/L (98-107); CREATININE 0.91 mg/dL (0.55-1.02); POTASSIUM 4.5 mmol/L (3.5-5.1); SODIUM 137 mmol/L (136-145)
[2019-01-23 20:18] LABS: TROPONIN I < 0.015 ng/ml (<0.045)
--- NOTE | 2019-01-23 21:00 | NUR ---
PT STATES PAIN IS GONE AND THAT IT IS EASIER FOR HER TO BREATHE. DR. FERRARA MADE AWARE OF NEGATIVE LAB RESULTS AND UPDATED CONDITION. NO OTHER COMPLAINTS AT THIS TIME.
[2019-01-24] VITALS: BP 127/51
--- NOTE | 2019-01-24 00:27 | NUR ---
Patient resting quietly with no c/o discomfort. Respirations easy and regular. Vital signs stable. No overt distress. QUINTON SEWELL
[2019-01-24 08:00] VITALS: BP 130/64
--- NOTE | 2019-01-24 08:00 | NUR ---
Patient resting quietly with no c/o discomfort. Respirations easy and regular. Vital signs stable. No overt distress. ASHVIN GUZMAN
[2019-01-24 11:50] VITALS: BP 115/40
--- NOTE | 2019-01-24 12:58 | NUR ---
Bark Spudder in to talk to patient. Patient states lives at HOME with . There are FEW steps in the home. Physician: TRISHA [facility]acy: [facility] Home health services: NONE Patient's level of ADLs: INDEPENDENT Patient has working utilities: YES DME: HAS O2 CONCENTRATOR THAT [employer] BOUGHT HER Follow-up physician's appointment after d/c: WILL BE MADE BY HOSPITALIST NURSE DIRECTOR ON DISCHARGE Does patient want to access PORTAL?: NO Discharge plan . PT LIVES AT HOME WITH HER AND IS INDEPENDENT IN HER CARE. STATES SHE HAS AN O2 CONCENTRATOR THAT HER [employer] BOUGHT HER. DENIES ANY OTHER NEEDS AT THIS TIME. WILL CONTINUE TO FOLLOW. STATES HER [facility] WILL TRANSPORT HOME. AYUSH ALLRED
[2019-01-24 15:55] VITALS: BP 139/63
[2019-01-24 20:00] VITALS: BP 133/54
[2019-01-25] VITALS: BP 117/44
--- NOTE | 2019-01-25 02:37 | NUR ---
Patient resting quietly with no c/o discomfort. Respirations easy and regular. Vital signs stable. No overt distress. QUINTON SEWELL
[2019-01-25 08:00] VITALS: BP 120/50
--- NOTE | 2019-01-25 11:13 | NUR ---
SPOKE WITH REGARDING CONSULT.
[2019-01-25 12:00] VITALS: BP 145/61
--- NOTE | 2019-01-25 14:44 | NUR ---
PT WILL RETURN TO HOME WITH WHEN MEDICALLY STABLE. WILL CONTINUE TO FOLLOW.
[2019-01-25 16:00] VITALS: BP 143/64
--- NOTE | 2019-01-25 23:35 | NUR ---
PATIENT HAVING DIFFICULTY BREATHING AND HARSH EXPIRATORY WHEEZES POST AEROSOL TREATMENT. PATIENT SITTING AT THE SIDE OF BED. STATES THAT SHE FEELS "VERY ANXIOUS AND THAT I AM SUFFOCATING." SpO2 100% ON 3LNC. RR 26-30. HR 100-110. DR ACEVEDO CALLED- NEW ORDER RECEIVED SEE EMAR.
--- NOTE | 2019-01-25 23:43 | NUR ---
PATIENT MEDICATED WITH 1 TIME DOSE 25MG VISTARIL FOR ANXIETY. WILL MONITOR FOR EFFECTIVENESS.
[2019-01-26] VITALS (7 sets, daily range): BP systolic 127–155; BP diastolic 72–107
--- NOTE | 2019-01-26 00:15 | NUR ---
PATIENT STATES THAT SHE IS FEELING BETTER. SITTING AT BEDSIDE. CALL LIGHT WITHIN REACH. WILL MONITOR.
--- NOTE | 2019-01-26 02:00 | NUR ---
PATIENT RESTING WITH EYES CLOSED. RESPIRATIONS EASY AND UNLABORED. CALL LIGHT WITHIN REACH. WILL MONITOR.
--- NOTE | 2019-01-26 02:50 | NUR ---
PATIENT C/O NO BEING ABLE TO BREATH. RESPIRATORY AT BEDSIDE. RR 26-30, HR 90'S-110'S. SPO2 97% ON 3LNC. PATIENT STATES THAT SHE IS VERY ANXIOUS. DT JOSIAS CALLED, NEW ORDER RECEIVED. SEE EMAR.
--- NOTE | 2019-01-26 03:06 | NUR ---
PATIENT MEDICATED WITH 1X DOSE OF RESTORIL PER ORDER. WILL MONITOR FOR EFFECTIVENESS.
--- NOTE | 2019-01-26 05:10 | NUR ---
PATIENT MEDICATED WITH 15MG RESTORIL PRESCRIBED FOR RESTLESSNESS AND ANXIETY. WILL MONITOR FOR EFFECTIVENESS.
--- NOTE | 2019-01-26 05:22 | NUR ---
PATIENT STILL C/O NOT BEING ABLE TO BREATH. SPO2 97% ON 3LNC. LS DIMINISHED WITH EXP WHEEZEZ T/O. RR 24-28. DR FERRARA AT BEDSIDE. WAITING FOR NEW ORDERS.
[2019-01-26 05:58] LABS: BASO % 0.1 % (0.0-1.0); HEMATOCRIT 38.1 % (37.0-47.0); HEMOGLOBIN 11.6 g/dl (12.0-16.0); LYMPH # 0.9 10*3/uL (1.3-4.4); LYMPH % 5.8 % (27.0-41.0); MEAN CELL VOLUME 89.2 fl (81.0-99.0); MEAN CORPUSCULAR HGB 27.2 pg (27.0-31.0); MEAN CORPUSCULAR HGB CONC 30.4 g/dl (33.0-37.0); MEAN PLATELET VOLUME 9.4 fl (9.6-12.3); MONO # 1.3 10*3/uL (0.1-1.0); MONO % 8.4 % (3.0-9.0); NEUT # 13.2 10*3/uL (2.3-7.9); NEUT % 84.9 % (47.0-73.0); PLATELET COUNT AUTOMATED 347 10*3/uL (130-400); RED BLOOD COUNT 4.27 10*6/uL (4.10-5.10); RED CELL DISTRI WIDTH 15.8 % (0-14.5); WHITE BLOOD COUNT 15.5 10*3/uL (4.8-10.8)
[2019-01-26 06:04] LABS: ALBUMIN 3.7 gm/dl (3.1-4.5); ALKALINE PHOSPHATASE 58 U/L (45-117); BUN 15 mg/dl (7-24); CHLORIDE 103 mmol/L (98-107); CHOLESTEROL 156 mg/dL (<200); CREATININE 0.85 mg/dL (0.55-1.02); HDL CHOLESTEROL 88 mg/dl (40-60); LDL CHOLESTEROL 48 mg/dL (9-159); POTASSIUM 4.6 mmol/L (3.5-5.1); SGOT/AST 89 IU/L (3-35); SGPT/ALT 123 U/L (12-78); SODIUM 137 mmol/L (136-145); TOTAL PROTEIN 7.2 gm/dL (6.4-8.2); TRIGLYCERIDES 99 mg/dl (<150); VLDL CHOLESTEROL 20 mg/dL (6-40)
--- NOTE | 2019-01-26 06:08 | NUR ---
DR FERRARA AWARE OF CRITICAL TROPONIN.
--- NOTE | 2019-01-26 06:25 | NUR ---
SPOKE WITH DR JADE, MADE AWARE OF CRITICAL TROPONIN. ORDER ECHO IF NO COMPLETED IN LAST 6 MONTH. ECHO WAS PERFORMED 12/05/18. WILL SEE PATIENT TODAY.
--- NOTE | 2019-01-26 07:40 | NUR ---
VITAL SIGNS STABLE. A&O X3. KUMAR. SKIN PINK, WARM, DRY, INTACT. POSITIVE PEDAL PULSES. NO COMPLAINTS OF PAIN AT THIS PAIN. SPO2 98% ON 3L NC. LUNGS DIMISHISHED WITH WHEEZING I&E THROUGHOUT. SKIN TURGOR NON-TENTED. CAPILLARY REFILL < 3 SECONDS. HEART SOUNDS NORMAL. HR 92 REGULAR. ABD SOFT, NON-TENDER, NON-DISTENDED. BOWEL SOUNDS ACTIVE X4. IV SITE IN THE LA IS IN INTACT, NO SIGN OF INFECTION. PATIENT IS PLEASANT AND COOPERATIVE. WILL CONTIUNE TO ASSESS. [facility].
--- NOTE | 2019-01-26 09:01 | NUR ---
Face to face encounter with Kathleen Moran CNP regarding troponin level. Per Kathleen contact . Physician to follow up at patients bedside.
--- NOTE | 2019-01-26 09:20 | NUR ---
PATIENT IS EXPERIENCING ANXIOUSNESS REQUESTED MEDICATION. GIVEN MORPHINE 1MG IVP BY NAYA EDWARDS RN. WILL CONTIUNE TO ASSESS. DEQUAN AUGUSTIN.
--- NOTE | 2019-01-26 09:45 | NUR ---
"MORPHINE NOT HELPFULL. STILL CAN'T BREATHE." PATIENT ANXOUS. DOCTOR WOOD WAS IN TO SEE PATIENT. DEQUAN AUGUSTIN
--- NOTE | 2019-01-26 10:33 | NUR ---
Received a call from wardrobe specialist stating [phone] is having a hard time breathing. Patients condition deteriated considerably with in the past hour. Explained to patient that she needs to be placed on the bi-pap or she may have to go to ICU. Bipap was placed on patient but she did not tolerate at all. At that time I asked Kathleen Luisa if we could transfer her, and Kathleen was already in the process. Said she is going to bed 5. Patient was immediately transferred. was at patients bedside.
[2019-01-26 10:45] LABS: ABG BASE EXCESS 4.2 mmol/L (-2.0-2.0); ARTERIAL BLOOD GAS PH 7.322 (7.35-7.45)
--- NOTE | 2019-01-26 10:58 | NUR ---
RECEIVED FROM 5E IN RESP DISTRESS, CLAMMY, ANXIOUS ON NC4L HUMIDIFIED. PLACED ON BIPAP 14/8 35% AFTER ABG DRAWN ON 5E RECEIVED. RESTING MUCH BETTER ON BIPAP. SINUS TACH 108 RESTING HR DOWN TO 98. IV TO JEFFREY NOT WORKING
--- NOTE | 2019-01-26 11:18 | NUR ---
DR WORLEY HERE AND SPEAKING WITH PATIENT ABOUT LINE UNABLE TO GET IV ACCESS JEFFREY PRESENT ON ARRIVAL NOT WORKING & REMOVED.
--- NOTE | 2019-01-26 11:28 | NUR ---
DR MUIR CALLED WITH ABG RESULTS - ORDERS RECEIVED.
--- NOTE | 2019-01-26 11:29 | NUR ---
DR JADE AWARE OF NEW EKG FINDINGS & NO NEW ORDERS AT THIS TIME
--- NOTE | 2019-01-26 11:54 | NUR ---
RESTING BETTER SINCE PLACED ON BIPAP , IM ATIVAN, & IV TO RAN PLACED VIA ULTRASOUND - WILL HOLD OFF ON MLC AT THIS TIME. HERE AND HAPPY WITH HOW SHE LOOKS AND IS IN AGREEMENT WITH ANY LINES NEEDED.
[2019-01-26 13:37] LABS: ABG BASE EXCESS 5.1 mmol/L (-2.0-2.0); ARTERIAL BLOOD GAS PH 7.272 (7.35-7.45)
--- NOTE | 2019-01-26 19:39 | NUR ---
RESTING BETTER AFTER ATIVAN GIVEN. PATIENT BECAME ANXIOUS & RESP RATE INCREASED W/ LABORED RESP AFTER TURNING ON HER SIDE. ATIVAN EFFECTIVE
--- NOTE | 2019-01-26 20:17 | NUR ---
RESTING IN BED WITH EYES CLOSED. APPEARS TO BE SLEEPING. BIPAP INTACT. PULSE OX 97%. NO DISTRESS NOTED. HEP LOCK INTACT.
[2019-01-27] VITALS: BP 125/70
--- NOTE | 2019-01-27 00:22 | NUR ---
REMAINS SLEEPING WITH BIPAP INTACT.
--- NOTE | 2019-01-27 01:22 | NUR ---
0045 UP TO BSC PER REQUEST TO VOID. C/O SL DIZZINESS. BIPAP INTACT. JENKINS. 0050 ATIVAN 0.5 MG IV GIVEN FOR ANXIETY. WILL MONITOR. REPOSITIONED ON R SIDE. IV SITE RAN IS POSITIONAL.
--- NOTE | 2019-01-27 02:15 | NUR ---
EARLIER ATIVAN EFFECTIVE. RESTING IN BED WITH EYES CLOSED. APPEARS TO BE SLEEPING. BIPAP INTACT.
[2019-01-27 04:00] VITALS: BP 114/58
[2019-01-27 05:00] LABS: HEMATOCRIT 36.3 % (37.0-47.0); HEMOGLOBIN 10.7 g/dl (12.0-16.0); LYMPH # 0.7 10*3/uL (1.3-4.4); LYMPH % 7.7 % (27.0-41.0); MEAN CELL VOLUME 90.3 fl (81.0-99.0); MEAN CORPUSCULAR HGB 26.6 pg (27.0-31.0); MEAN CORPUSCULAR HGB CONC 29.5 g/dl (33.0-37.0); MEAN PLATELET VOLUME 9.5 fl (9.6-12.3); MONO # 0.6 10*3/uL (0.1-1.0); MONO % 5.8 % (3.0-9.0); NEUT # 8.2 10*3/uL (2.3-7.9); PLATELET COUNT AUTOMATED 302 10*3/uL (130-400); RED BLOOD COUNT 4.02 10*6/uL (4.10-5.10); RED CELL DISTRI WIDTH 15.7 % (0-14.5); WHITE BLOOD COUNT 9.6 10*3/uL (4.8-10.8)
[2019-01-27 05:15] LABS: ALBUMIN 3.3 gm/dl (3.1-4.5); ALKALINE PHOSPHATASE 54 U/L (45-117); BUN 16 mg/dl (7-24); CHLORIDE 102 mmol/L (98-107); CREATININE 0.72 mg/dL (0.55-1.02); PHOSPHOROUS 3.7 mg/dL (2.5-4.9); POTASSIUM 4.5 mmol/L (3.5-5.1); SGOT/AST 31 IU/L (3-35); SGPT/ALT 83 U/L (12-78); SODIUM 140 mmol/L (136-145); TOTAL PROTEIN 6.5 gm/dL (6.4-8.2)
--- NOTE | 2019-01-27 06:05 | NUR ---
SLEPT WELL THIS SHIFT WITH BIPAP INTACT. CALL LIGHT IN REACH. NO DISTRESS NOTED. CONDITION GUARDED.
[2019-01-27 07:31] LABS: ABG BASE EXCESS 6.2 mmol/L (-2.0-2.0); ARTERIAL BLOOD GAS PH 7.234 (7.35-7.45)
[2019-01-27 08:00] VITALS: BP 134/78
[2019-01-27 08:08] LABS: ABG BASE EXCESS 7.1 mmol/L (-2.0-2.0); ARTERIAL BLOOD GAS PH 7.238 (7.35-7.45)
[2019-01-27 08:52] LABS: ABG BASE EXCESS 7.4 mmol/L (-2.0-2.0); ARTERIAL BLOOD GAS PH 7.292 (7.35-7.45)
--- NOTE | 2019-01-27 09:09 | NUR ---
DR MUIR MADE AWARE OF ABG RESULTS. NO NEW ORDERS AT THIS TIME.
--- NOTE | 2019-01-27 11:14 | NUR ---
Patient requested to come off BiPAP for AM meds, okay per Dr. Hall. RT removed patient from biPAP. Patient did not tolerate well, c/o SOB and increasing anxiety, spO2 97%. RT placed back on BiPAP, Dr. Hall informed, 1x dose IV ativan ordered and administered and order increased to q4hrs. Patient and spouse educated on smoking cessation, both verbalized understanding. Patient's spouse @ bedside. Will continue to monitor.
[2019-01-27 12:00] VITALS: BP 150/81
--- NOTE | 2019-01-27 13:00 | NUR ---
DR. MUIR INFORMED OF PATIENT'S C/O SOB. PATIENT'S SPO2 97%, REMAINS ON BIPAP, NO INCREASED WOB. SKIN PINK, WARM AND DRY. 0.5 MG IV ATIVAN ORDERED X 1 DOSE NOW.
--- NOTE | 2019-01-27 14:00 | NUR ---
NEW IV SITE PLACED. IV ATIVAN ADMINISTERED, PATIENT RESTING QUIETLY.
--- NOTE | 2019-01-27 15:00 | NUR ---
PATIENT CONTINUES TO C/O SOB, RESPIRATORY INFORMED. PATIENT REMAINS STABLE.
[2019-01-27 16:00] VITALS: BP 141/75
--- NOTE | 2019-01-27 17:19 | NUR ---
PT MEDICATED WITH ATIVAN 0.5MG IV FOR ANXIETY. REPOSITIONED FOR COMFORT.
--- NOTE | 2019-01-27 19:15 | NUR ---
O2 TITRATED TO 50% DUE TO PT DESATURATON TO 76%. SATS RETURNED TO 98% POST O2 CHANGE. NO RES DISTRESS OR SOB NOTED AT THIS TIME. WILL CONTINUE TO REASSESS PT NEEDED.
--- NOTE | 2019-01-27 19:30 | NUR ---
PATIENT VERY ANXIOUS PULSE OX DROPPED TO 78 PATIENT STATING SHE COULD NOT BREATHE RESPIRATORY CALLED TO ADJUST O2 ON BIPAP INCREASED TO 65% AND [PATIENT WAS GIVEN PRN ATIVAN FOR ANXIETY PATIENT PULSE OX IS CURRENTLY 98%.
[2019-01-27 20:00] VITALS: BP 153/76
[2019-01-28] VITALS (8 sets, daily range): BP systolic 105–179; BP diastolic 43–77
[2019-01-28 04:56] LABS: HEMOGLOBIN 10.6 g/dl (12.0-16.0); LYMPH # 0.5 10*3/uL (1.3-4.4); LYMPH % 4.5 % (27.0-41.0); MEAN CORPUSCULAR HGB CONC 28.6 g/dl (33.0-37.0); MEAN PLATELET VOLUME 9.5 fl (9.6-12.3); MONO # 0.6 10*3/uL (0.1-1.0); MONO % 5.3 % (3.0-9.0); NEUT # 9.2 10*3/uL (2.3-7.9); NEUT % 89.6 % (47.0-73.0); PLATELET COUNT AUTOMATED 297 10*3/uL (130-400); RED BLOOD COUNT 3.93 10*6/uL (4.10-5.10); RED CELL DISTRI WIDTH 15.7 % (0-14.5); WHITE BLOOD COUNT 10.3 10*3/uL (4.8-10.8)
[2019-01-28 05:13] LABS: ALBUMIN 3.4 gm/dl (3.1-4.5); ALKALINE PHOSPHATASE 50 U/L (45-117); BUN 24 mg/dl (7-24); CHLORIDE 100 mmol/L (98-107); CREATININE 0.84 mg/dL (0.55-1.02); POTASSIUM 4.7 mmol/L (3.5-5.1); SGOT/AST 22 IU/L (3-35); SGPT/ALT 63 U/L (12-78); SODIUM 139 mmol/L (136-145); TOTAL PROTEIN 6.6 gm/dL (6.4-8.2)
[2019-01-28 05:29] LABS: MEAN CELL VOLUME 94.1 fl (81.0-99.0)
--- NOTE | 2019-01-28 06:51 | NUR ---
BLADDER SCANNED PATIENT FOR 522. HERNANDEZ PLACED PER KINNEAR FOR GREATER THAN 500. PATIENT TOLERATED WELL. DURING HERNANDEZ PLACEMENT PATIENT URINATED IN THE BED. HERNANDEZ STILL PLACED AT THIS TIME. 100 MLS IN TUBING OF HERNANDEZ AFTER PLACEMENT. THE REST WAS ON THE BED.
--- NOTE | 2019-01-28 07:01 | NUR ---
16F HERNANDEZ PLACED PER DOCTORS ORDERS PATIENT TOLERATED WELL.
--- NOTE | 2019-01-28 08:18 | NUR ---
COZAAR INCREASED TODAY DUE TO ELEVATED BP OF 179/77.
--- NOTE | 2019-01-28 10:50 | NUR ---
PT VERY ANXIOUS EVERY TIME SHE AWAKEN FOR PT CARE. PT REASSURED. BUT CONTINUES TO STATE THAT SHE CANT BREATH. POX 96% ON BIPAP 40%. NSR RATE 90'S ON MONITOR. AT BEDSIDE. ATIVAN 1MG IV GIVEN AT THIS TIME.
--- NOTE | 2019-01-28 11:30 | NUR ---
DR MUIR IN TO SEE PT. PT CONTINUES TO BE UNABLE TO TOLERATE BEING OFF THE BIPAP FOR EVEN A FEW MINUTES FOR MEDS WITHOUT BECOMING VERY ANXIOUS AND STATING SHE CAN NOT BREATH. PT MORE DROWSY TODAY AND STATES SHE IS FEELING NO BETTER. ORDER FOR INTUBATION RECIEVED. AWAITING ANESTHESIOLOGY TO INTUBATE PT.
--- NOTE | 2019-01-28 12:00 | NUR ---
Infomed consent obtained from spouse by Dr. WORLEY for elective intubation. Patient intubated with 8 Bulgarian endotracheal tube orally X 1 attempts. Patient sedated with WELL Respiratory therapy at bedside. Crash cart with emergency drugs available. Endotracheal tube inflated with 8cc's. Lungs auscultated for equality of breath sounds. Tube secured with Head gear at 23cm's. at level of LIP. Patient tolerated procedure WELL. Portable chest X-ray obtained and reviewed for tube placement. Patient connected to ventilator CMV mode, 600 tidal volume, 35% FIO2, 5 PEEP, and pressure support. SALMA HA
--- NOTE | 2019-01-28 12:30 | NUR ---
ART LINE TO LEFT BRACHIAL PLACED BY ANESTHESIOLOGY YEYO AND RIGHT IJ MULTILUMEN PLACED BY DR WORLEY.
[2019-01-28 15:40] LABS: ABG BASE EXCESS 7.8 mmol/L (-2.0-2.0); ARTERIAL BLOOD GAS PH 7.42 (7.35-7.45)
--- NOTE | 2019-01-28 15:53 | NUR ---
DR MUIR MADE AWARE OF ABG RESULTS.
[2019-01-29] VITALS (13 sets, daily range): BP systolic 102–166; BP diastolic 45–68
[2019-01-29 05:21] LABS: BASO % 0.1 % (0.0-1.0); HEMATOCRIT 34.5 % (37.0-47.0); HEMOGLOBIN 10.4 g/dl (12.0-16.0); LYMPH # 0.7 10*3/uL (1.3-4.4); LYMPH % 5.6 % (27.0-41.0); MEAN CORPUSCULAR HGB 27.3 pg (27.0-31.0); MEAN CORPUSCULAR HGB CONC 30.1 g/dl (33.0-37.0); MEAN PLATELET VOLUME 9.7 fl (9.6-12.3); MONO # 0.8 10*3/uL (0.1-1.0); MONO % 5.7 % (3.0-9.0); NEUT # 11.7 10*3/uL (2.3-7.9); NEUT % 88.1 % (47.0-73.0); PLATELET COUNT AUTOMATED 275 10*3/uL (130-400); RED BLOOD COUNT 3.81 10*6/uL (4.10-5.10); WHITE BLOOD COUNT 13.3 10*3/uL (4.8-10.8)
[2019-01-29 05:29] LABS: MEAN CELL VOLUME 90.6 fl (81.0-99.0)
[2019-01-29 05:39] LABS: ALBUMIN 3.1 gm/dl (3.1-4.5); ALKALINE PHOSPHATASE 44 U/L (45-117); BUN 30 mg/dl (7-24); CHLORIDE 103 mmol/L (98-107); CREATININE 0.84 mg/dL (0.55-1.02); SGOT/AST 17 IU/L (3-35); SGPT/ALT 50 U/L (12-78); SODIUM 141 mmol/L (136-145)
[2019-01-29 05:42] LABS: POTASSIUM 3.7 mmol/L (3.5-5.1)
--- NOTE | 2019-01-29 08:00 | NUR ---
PT AWAKE AND ALERT. PT ABLE TO FOLLOW SIMPLE COMANDS. VSS. PT REMAINS INTUBATED. EXP. WHEEZING NOTED. PT SUCTIONED FOR SCANT AMOUNT OF WHITE MUCUS. OGT PLACEMENT VERIFIED WITH AN AIR BOLUS. TUBE FEEDINGS INFUSING AT 20CC/HR. NO RESIDUAL NOTED. ABD. SOFT WITH ACTIVE BOWEL SOUNDS. HERNANDEZ PATNET FOR CLEAR YELLOW URINE. TRACE LOWER LEG EDEMA NOTED. WILL CONTINUE TO MONITOR PT.
[2019-01-29 08:37] LABS: ABG BASE EXCESS 10.1 mmol/L (-2.0-2.0); ARTERIAL BLOOD GAS PH 7.453 (7.35-7.45)
--- NOTE | 2019-01-29 08:45 | NUR ---
DR MUIR IN TO SEE PT. HE STATED TO GET CONSENT FOR BRONCH IN AM.
--- NOTE | 2019-01-29 11:40 | NUR ---
PT'S SIGNED INFORMED CONSENTS FOR BRONCHOSCOPY IN THE AM.
--- NOTE | 2019-01-29 13:45 | NUR ---
IV VERSED GIVEN TO PT FOR INCREASED AGITATION.
--- NOTE | 2019-01-29 13:58 | NUR ---
PRIOR TO GOING TO ICU SHE HAD SAID SHE WOULD BE GOING HOME WITH NO NEEDS. WILL CONTINUE TO FOLLOW.
--- NOTE | 2019-01-29 14:00 | NUR ---
PT RESTING. EARLIER VERSED EFFECTIVE.
--- NOTE | 2019-01-29 14:43 | NUR ---
ABG DRAWN FROM ART LINE.
[2019-01-29 14:56] LABS: ABG BASE EXCESS 9.2 mmol/L (-2.0-2.0); ARTERIAL BLOOD GAS PH 7.447 (7.35-7.45)
--- NOTE | 2019-01-29 15:26 | NUR ---
UPDATED DR MUIR ON ABG RESULTS. NEW ORDERS RECEIVED.
--- NOTE | 2019-01-29 16:25 | NUR ---
MEDICATED PT PER PRN ORDER WITH VERSED FOR PT'S INCREASED AGITATION.
--- NOTE | 2019-01-29 16:49 | NUR ---
DR DOW IN TO SEE PT. NEW ORDERS RECEIVED.
--- NOTE | 2019-01-29 16:50 | NUR ---
PT RESTING. EARLIER VERSED EFFECTIVE.
--- NOTE | 2019-01-29 17:04 | NUR ---
40MG IV LASIX GIVEN PER ORDER.
[2019-01-30] VITALS (12 sets, daily range): BP systolic 102–144; BP diastolic 43–64
--- NOTE | 2019-01-30 00:40 | NUR ---
PATIENT MEDICATED WITH VERSED PER DRS ORDERS. PATIENT EXPERIENCING SOME DISTRESS. VENTILATOR ALARMING. RESPIRATORY UP TO SEE PATIENT.
--- NOTE | 2019-01-30 02:15 | NUR ---
EARLIER MEDICATION SEEMS TO HAVE BEEN EFFECTIVE. PATIENT RESTING QUIETLY WITH NO SIGNS OR SYMPTOMS OF DISTRESS. VENTILATOR HAS STOPPED ALARMING.
--- NOTE | 2019-01-30 04:15 | NUR ---
RESPIRATORY UP TO FLOOR, INCREASED OXYGEN TO 40%.
[2019-01-30 06:22] LABS: ALBUMIN 3.1 gm/dl (3.1-4.5); ALKALINE PHOSPHATASE 44 U/L (45-117); BUN 23 mg/dl (7-24); CHLORIDE 102 mmol/L (98-107); CREATININE 0.76 mg/dL (0.55-1.02); POTASSIUM 3.9 mmol/L (3.5-5.1); SGOT/AST 23 IU/L (3-35); SGPT/ALT 44 U/L (12-78); SODIUM 141 mmol/L (136-145); TOTAL PROTEIN 6.2 gm/dL (6.4-8.2)
--- NOTE | 2019-01-30 06:30 | NUR ---
PATIENT RESTING MORE SOUNDLY AT THIS TIME, SURGERY CALLED TO MAKE RN AWARE THAT DR MUIR WILL BE IN EARLY AND THAT PATIENT WILL BE GOING TO SURGERY FOR BRONCH AT 730. THIS RN ALSO MADE RESPIRATORY AWARE.
[2019-01-30 06:40] LABS: BASO % 0.1 % (0.0-1.0); HEMATOCRIT 35.3 % (37.0-47.0); HEMOGLOBIN 10.9 g/dl (12.0-16.0); LYMPH # 0.6 10*3/uL (1.3-4.4); LYMPH % 4.4 % (27.0-41.0); MEAN CORPUSCULAR HGB 27.2 pg (27.0-31.0); MEAN CORPUSCULAR HGB CONC 30.9 g/dl (33.0-37.0); MEAN PLATELET VOLUME 10.1 fl (9.6-12.3); MONO # 0.8 10*3/uL (0.1-1.0); MONO % 5.8 % (3.0-9.0); NEUT # 12.9 10*3/uL (2.3-7.9); NEUT % 88.9 % (47.0-73.0); PLATELET COUNT AUTOMATED 275 10*3/uL (130-400); RED BLOOD COUNT 4.01 10*6/uL (4.10-5.10); RED CELL DISTRI WIDTH 16.2 % (0-14.5); WHITE BLOOD COUNT 14.4 10*3/uL (4.8-10.8)
--- NOTE | 2019-01-30 07:10 | NUR ---
DR MUIR IN TO SEE PT. NEW ORDERS RECEIVED. PT REMAINS INTUBATED AND SEDATED. VSS. LUNG DOOLEY DIM. OGT PLACEMENT VERIFIED WITH AN AIR BOLUS. PULMOCARE TUBE FEEDINGS ON HOLD FOR BRONCH THIS AM. ABD. SOFT WITH ACTIVE BOWEL SOUNDS. HERNANDEZ PATENT FOR CLEAR YELLOW URINE. NO PERIPHERAL EDEMA NOTED. WILL CONTINUE TO MONITOR PT.
--- NOTE | 2019-01-30 07:15 | NUR ---
DR JADE CALLED IN REGARDING PT. NEW ORDERS RECEIVED.
--- NOTE | 2019-01-30 07:55 | NUR ---
BEDSIDE BRONCHOSCOPY COMPLETED. PT TOLERATED PROCEDURE WELL.
[2019-01-30 08:43] LABS: ABG BASE EXCESS 11.1 mmol/L (-2.0-2.0); ARTERIAL BLOOD GAS PH 7.402 (7.35-7.45)
--- NOTE | 2019-01-30 08:56 | NUR ---
MEDICATED PT PER PRN ORDER WITH IV VERSED FOR PT'S INCREASED AGITATION.
--- NOTE | 2019-01-30 09:15 | NUR ---
PT RESTING. EARLIER VERSED EFFECTIVE.
--- NOTE | 2019-01-30 10:30 | NUR ---
PT REMAINS ON VENT. HAD BRONCH THIS AM WITH DR MUIR AT BEDSIDE. WILL CONTINUE TO FOLLOW.
--- NOTE | 2019-01-30 12:00 | NUR ---
PT RESTING. VSS. NO ACUTE DISTRESS NOTED. PT TURNED AND REPOSITIONED FOR COMFORT AND PRESSURE ULDER PREVENTION.
--- NOTE | 2019-01-30 16:36 | NUR ---
PT RESTING. VSS. NO ACUTE DISTRESS NOTED.
[2019-01-31] VITALS (12 sets, daily range): BP systolic 104–153; BP diastolic 41–63
[2019-01-31 06:08] LABS: BUN 24 mg/dl (7-24); CHLORIDE 99 mmol/L (98-107); CREATININE 0.95 mg/dL (0.55-1.02); PHOSPHOROUS 4.5 mg/dL (2.5-4.9); POTASSIUM 4.1 mmol/L (3.5-5.1); SGOT/AST 29 IU/L (3-35); SGPT/ALT 39 U/L (12-78); SODIUM 141 mmol/L (136-145); TOTAL PROTEIN 6.5 gm/dL (6.4-8.2)
[2019-01-31 06:10] LABS: HEMATOCRIT 36.9 % (37.0-47.0); HEMOGLOBIN 11.3 g/dl (12.0-16.0); MEAN CELL VOLUME 87.9 fl (81.0-99.0); MEAN CORPUSCULAR HGB 26.9 pg (27.0-31.0); MEAN CORPUSCULAR HGB CONC 30.6 g/dl (33.0-37.0); MEAN PLATELET VOLUME 10.2 fl (9.6-12.3); PLATELET COUNT AUTOMATED 289 10*3/uL (130-400); RED CELL DISTRI WIDTH 16.7 % (0-14.5)
[2019-01-31 06:11] LABS: ALKALINE PHOSPHATASE 45 U/L (45-117)
[2019-01-31 06:39] LABS: OVALOCYTES FEW; PLATELET SUFFICIENCY NORMAL (NORMAL); TARGET CELLS FEW; TOTAL CELLS COUNTED 100 #CELLS
--- NOTE | 2019-01-31 07:45 | NUR ---
PT REMAINS INTUBATED WITH A #8 ENDOTUBE 24CM AT LIP. POX 93% ON 35% FIO2. VSS. LUNG DOOLEY DIM. PT SUCTIONED FOR SMALL AMOUNT OF WHITE MUCUS. OGT PLACEMENT VERIFIED WITH AN AIR BOLUS. PULMOCARE TUBE FEEDING INFUSING AT 20CC/HR. NO RESIDUAL NOTED. ABD. SOFT WITH ACTIVE BOWEL SOUNDS. HERNANDEZ PATENT FOR CLEAR, STRAW COLORED URINE. DEPENDANT EDEMA NOTED. BILATAERAL TUBI SUPERVISOR INSECTICIDE ON. PT REPOSITIONED FOR COMFORT AND PRESSURE ULCER PREVENTION. WILL CONTINUE TO MONITOR PT.
[2019-01-31 07:55] LABS: ABG BASE EXCESS 11.8 mmol/L (-2.0-2.0); ARTERIAL BLOOD GAS PH 7.434 (7.35-7.45)
--- NOTE | 2019-01-31 09:10 | NUR ---
DR MUIR IN TO SEE PT. ORDERED TO HOLD SEDATION AND TO PLACE ON CPAP WHEN AWAKE AND RESPONDING.
--- NOTE | 2019-01-31 09:27 | NUR ---
PT AWAKE AND FOLLOWING SIMPLE COMMANDS. PT PLACED ON CPAP AFTER BIENG EDUCATED ON CPAP TRIAL.
--- NOTE | 2019-01-31 09:35 | NUR ---
MEDICATED PT PER 1 TIME ORDER WITH IV HALDOL.
--- NOTE | 2019-01-31 09:45 | NUR ---
PT'S SBP ELEVATED 190-200. RESP RATE 30'S. POX 89%. PT PLACED BACK TO PREVIOUS CMV SETTINGS AFTER UPDATING DR MUIR. NEW ORDERS RECEIVED.
--- NOTE | 2019-01-31 10:01 | NUR ---
PT RESTING. SBP NOW 150'S. WILL CONTINUE TO MONITOR PT.
--- NOTE | 2019-01-31 12:16 | NUR ---
PT RESTING. VSS. NO ACUTE DISTRESS.
[2019-01-31 16:06] LABS: ACID FAST SPEC PROCESSING Concentration (.)
--- NOTE | 2019-01-31 20:40 | NUR ---
VERSED GIVEN. PATIENT BECOMING INCREASINGLY AGITATED. BLOOD PRESSURE BECOMING HYPERTENSIVE 160'S/90'S. MEDICATION EFFECTIVE, PATIENT BECOMING MORE RELAXED, BP SLOWLY DECREASING 140'S/60'S.
--- NOTE | 2019-01-31 23:45 | NUR ---
VERSED GIVEN FOR INCREASED AGITATION AND RESTLESSNESS. WILL CONTINUE TO MONITOR AND REASSESS PATIENT.
[2019-02-01] VITALS (12 sets, daily range): BP systolic 102–144; BP diastolic 40–68
--- NOTE | 2019-02-01 00:50 | NUR ---
TURNED Fi02 UP TO 40% DUE TO SpO2 OF 89% SpO2 NOW 93%, RN AWARE.
--- NOTE | 2019-02-01 02:00 | NUR ---
CHART CHECK COMPLETED.
--- NOTE | 2019-02-01 03:00 | NUR ---
PATIENT BATH GIVEN AND BED LINENS CHANGED. MLC AND ART LINE DRESSING CLEAN/DRY/INTACT. PATIENT TOLERATED WELL.
--- NOTE | 2019-02-01 06:00 | NUR ---
DIPRIVAN TITRATED DOWN TO 20MCG AT THIS TIME. PATIENT REMAINS CALM, BP HOLDING AT 110'S/50'S PER ART LINE.
[2019-02-01 06:10] LABS: BUN 32 mg/dl (7-24); CHLORIDE 98 mmol/L (98-107); CREATININE 0.85 mg/dL (0.55-1.02); PHOSPHOROUS 5.2 mg/dL (2.5-4.9); POTASSIUM 4.2 mmol/L (3.5-5.1); SODIUM 139 mmol/L (136-145)
[2019-02-01 06:35] LABS: BASO % 0.2 % (0.0-1.0); HEMATOCRIT 35.4 % (37.0-47.0); HEMOGLOBIN 10.7 g/dl (12.0-16.0); LYMPH # 0.6 10*3/uL (1.3-4.4); LYMPH % 4.4 % (27.0-41.0); MEAN CELL VOLUME 89.4 fl (81.0-99.0); MEAN CORPUSCULAR HGB CONC 30.2 g/dl (33.0-37.0); MEAN PLATELET VOLUME 10.4 fl (9.6-12.3); MONO # 1.1 10*3/uL (0.1-1.0); NEUT # 10.8 10*3/uL (2.3-7.9); NEUT % 85.1 % (47.0-73.0); PLATELET COUNT AUTOMATED 230 10*3/uL (130-400); RED BLOOD COUNT 3.96 10*6/uL (4.10-5.10); WHITE BLOOD COUNT 12.7 10*3/uL (4.8-10.8)
--- NOTE | 2019-02-01 07:25 | NUR ---
Shift chart check completed.24 HR chart check completed.
[2019-02-01 07:59] LABS: ARTERIAL BLOOD GAS PH 7.43 (7.35-7.45)
--- NOTE | 2019-02-01 08:24 | NUR ---
ON ASSESSMENT PATIENT AROUSED BRIEFLY TO HER NAME, ON DIPRIVAN AT 20MCG/KG/MIN. SEDATION VACATION AFTER WHICH PT BECAME TACHYPNEIC AND RESTLESS. HER SCHEDULED HALDOL HAS BEEN GIVEN. WHEN GIVEN MULTIPLE CHOICE SHE CORRECTLY PICKS THAT SHE'S IN "[facility]". SHE MOUTHED THE WORDS "HELP ME". DIPRIVAN RESUMED AT 20MCG/KG/MIN. OGT IN PLACE WITH PULMOCARE AT 20ML/HR. HERNANDEZ PATENT PALE YELLOW URINE. ART LINE RT BRACHIAL, ZEROED. SEE ALL APPROPRIATE INTERVENTIONS.
--- NOTE | 2019-02-01 09:46 | NUR ---
DR MUIR HAS VISITED. PLAN TO LEAVE INTUBATED AGAIN OVERNIGHT, CONTINUING THE HALDOL Q2H. DR MUIR AWARE BRONCH WASHINGS HAD MRSA. ORDERS RECEIVED. PT REPOSITIONED FOR COMFORT. SHE'S EASILY AWAKE, MOUTHING "HELP ME". AT THE BEDSIDE. IV VERSED 5MG GIVEN WITH RELIEF.
--- NOTE | 2019-02-01 19:06 | NUR ---
VERSED IV FOR ANXIETY WITH IMMEDIATE RELIEF.
--- NOTE | 2019-02-01 20:08 | NUR ---
dr wells in to see patient.
--- NOTE | 2019-02-01 22:27 | NUR ---
PATIENT MEDICATED WITH VERSED PER DRS ORDERS FOR INCREASED AGITATION. PATIENTS VENT IS ALARMING. AND PATIENT APPEARS TO BE ATTEMPTING TO COUGH. RESTLESS IN BED, AND KICKING LEGS IN BED. RN WILL MONITOR
--- NOTE | 2019-02-01 23:45 | NUR ---
PATIENT APPEARS TO BE RESTING MUCH MORE COMFORTABLY AT THIS TIME. EARLIER MEDICATION SEEMS TO HAVE AMOR EFFECTIVE. RN WILL CONTINUE TO MONITOR
--- NOTE | 2019-02-01 23:55 | NUR ---
PATIENT BATHED AT THIS TIME, TOLERATED WELL SINCE EARLIER MEDICATION.
[2019-02-02] VITALS (11 sets, daily range): BP systolic 101–162; BP diastolic 44–67
[2019-02-02 05:32] LABS: ALBUMIN 2.9 gm/dl (3.1-4.5); BUN 31 mg/dl (7-24); CHLORIDE 99 mmol/L (98-107); CREATININE 0.82 mg/dL (0.55-1.02); POTASSIUM 4.2 mmol/L (3.5-5.1); SGOT/AST 48 IU/L (3-35); SGPT/ALT 42 U/L (12-78); SODIUM 141 mmol/L (136-145)
[2019-02-02 05:33] LABS: ALKALINE PHOSPHATASE 46 U/L (45-117); TOTAL PROTEIN 6.5 gm/dL (6.4-8.2)
[2019-02-02 06:12] LABS: BASO % 0.1 % (0.0-1.0); HEMATOCRIT 37.1 % (37.0-47.0); HEMOGLOBIN 11.4 g/dl (12.0-16.0); LYMPH # 0.8 10*3/uL (1.3-4.4); LYMPH % 5.3 % (27.0-41.0); MEAN CELL VOLUME 88.1 fl (81.0-99.0); MEAN CORPUSCULAR HGB 27.1 pg (27.0-31.0); MEAN CORPUSCULAR HGB CONC 30.7 g/dl (33.0-37.0); MEAN PLATELET VOLUME 10.3 fl (9.6-12.3); MONO % 6.7 % (3.0-9.0); NEUT # 13.1 10*3/uL (2.3-7.9); NEUT % 86.9 % (47.0-73.0); PLATELET COUNT AUTOMATED 249 10*3/uL (130-400); RED BLOOD COUNT 4.21 10*6/uL (4.10-5.10); RED CELL DISTRI WIDTH 17.1 % (0-14.5); WHITE BLOOD COUNT 15.1 10*3/uL (4.8-10.8)
[2019-02-02 07:03] LABS: ABG BASE EXCESS 12.4 mmol/L (-2.0-2.0); ARTERIAL BLOOD GAS PH 7.463 (7.35-7.45)
--- NOTE | 2019-02-02 07:14 | NUR ---
Shift chart check completed.24 HR chart check completed.
--- NOTE | 2019-02-02 09:35 | NUR ---
ON ASSESSMENT PT REMAINS ON VENTILATOR, AROUSES TO HER NAME, REPOSITIONED FOR COMFORT. WRIST RESTRAINTS IN PLACE WITHOUT IMPAIRMENT TO CIRCULATION. ART LINE IN PLACE WITH GOOD DYNAMIC RESPONSE. MONITOR ZEROED. HERNANDEZ PATENT YELLOW URINE. PULMOCARE AT 20/HR. DIPRIVAN AT 20MCG/KG/MIN. SCHEDULED HALDOL Q2H. SEE ALL APPROPRIATE INTERVENTIONS.
--- NOTE | 2019-02-02 10:14 | NUR ---
SEDATION VACATION INITIATED AT 0950. DR MUIR HAS VISITED. PT AWAKE WHEN HE ROUNDED. PT PLACED ON CPAP BY RESPIRATORY UNDER DIRECTION OF DR MUIR. HE ALSO GAVE ORDERS TO RESPIRATORY TO EXTUBATE PT TO BIPAP, ATTEMPTING TO LEAVE THE OGT.
--- NOTE | 2019-02-02 10:26 | NUR ---
PT EXTUBATED BY RESPIRATORY THERAPY AND PLACED ON BIPAP PER ORDER.
--- NOTE | 2019-02-02 10:41 | NUR ---
PATIENT EXTUBATED TO BIPAP 20/10 45% O2 TOLERATED WELL.NURSE AWARE
--- NOTE | 2019-02-02 11:42 | NUR ---
PT ASSISTED TO POSITION OF COMFORT AND IS DOZING COMFORTBLY WITH BIPAP IN PLACE. OGT FEEDINGS CONTINUE.
--- NOTE | 2019-02-02 11:54 | NUR ---
PT HAS BEEN EXTUBATED AND IS ON BIPAP. WILL CONTINUE TO FOLLOW.
--- NOTE | 2019-02-02 12:26 | NUR ---
RESTING QUIETLY AT PRESENT. BIPAP IN PLACE.
--- NOTE | 2019-02-02 23:00 | NUR ---
BED BATH PERFORMED AND BED LINENS CHANGED AT THIS TIME. PATIENT DISLODGED OG TUBE AT THIS TIME. DR. COLES NOTIFIED THAT OG TUBE WAS NO LONGER PRESENT. NO FURTHER ORDERS AT THIS TIME.
[2019-02-03] VITALS (7 sets, daily range): BP systolic 106–157; BP diastolic 47–70
[2019-02-03 05:27] LABS: BASO % 0.1 % (0.0-1.0); HEMATOCRIT 37.5 % (37.0-47.0); HEMOGLOBIN 11.3 g/dl (12.0-16.0); LYMPH # 1.1 10*3/uL (1.3-4.4); LYMPH % 5.8 % (27.0-41.0); MEAN CELL VOLUME 90.1 fl (81.0-99.0); MEAN CORPUSCULAR HGB 27.2 pg (27.0-31.0); MEAN CORPUSCULAR HGB CONC 30.1 g/dl (33.0-37.0); MONO # 1.3 10*3/uL (0.1-1.0); MONO % 6.7 % (3.0-9.0); NEUT # 16.3 10*3/uL (2.3-7.9); NEUT % 86.7 % (47.0-73.0); PLATELET COUNT AUTOMATED 229 10*3/uL (130-400); RED BLOOD COUNT 4.16 10*6/uL (4.10-5.10); RED CELL DISTRI WIDTH 17.1 % (0-14.5); WHITE BLOOD COUNT 18.8 10*3/uL (4.8-10.8)
--- NOTE | 2019-02-03 05:30 | NUR ---
ATIVAN GIVEN DUE TO PATIENT BECOMING ANXIOUS AND BP ELEVATED TO 180/100'S. WILL CONTINUE TO MONITOR AND REASSESS.
[2019-02-03 05:42] LABS: ALBUMIN 3.1 gm/dl (3.1-4.5); ALKALINE PHOSPHATASE 48 U/L (45-117); BUN 34 mg/dl (7-24); CHLORIDE 100 mmol/L (98-107); CREATININE 0.83 mg/dL (0.55-1.02); PHOSPHOROUS 4.3 mg/dL (2.5-4.9); SGOT/AST 42 IU/L (3-35); SGPT/ALT 42 U/L (12-78); SODIUM 144 mmol/L (136-145); TOTAL PROTEIN 6.6 gm/dL (6.4-8.2)
--- NOTE | 2019-02-03 06:15 | NUR ---
ATIVAN EFFECTIVE. PATIENT RESTING CALMLY IN BED. BP 130'S/60'S AT THIS TIME.
--- NOTE | 2019-02-03 08:00 | NUR ---
PATIENT RESTING QUIETLY. REPOSITIONED FOR COMFORT. BIPA FIO2 45% POX 100%.
--- NOTE | 2019-02-03 09:40 | NUR ---
DR. MUIR HAS ROUNDED AND IS OK WITH PATIENT EATING ADVANCE TOLERATED.
--- NOTE | 2019-02-03 10:30 | NUR ---
FED PATIENT. NO ISSUES.
--- NOTE | 2019-02-03 11:00 | NUR ---
PATIENT PLACED BACK ON BIPAP AND REPOSITIONED PER REQUEST. OPTI-FOAM PLACED R BUTTOCK FOR BLANCABLE RED AREA TO PROTECT ANY BREAKDOWN.
--- NOTE | 2019-02-03 12:30 | NUR ---
OFF BIPAP ON 4L NC TO EAT. PATIENT TOLERATED OK.
--- NOTE | 2019-02-03 15:45 | NUR ---
PATIENT RESTLESS/ANXIOUS, BP INCREASE,RESPIRATIONS INCREASE POX LOWER. PATIENT MEDICATED WITH PRN ATIVAN PER ORDER.
--- NOTE | 2019-02-03 16:40 | NUR ---
PATIENT RELAXED SLEEPING ON BIPAP. BP 108/54. ATIVAN EFFECTIVE.
--- NOTE | 2019-02-03 17:28 | NUR ---
PATIENT RESTLESS AGAIN, AT BEDSIDE.
[2019-02-04] VITALS: BP 128/53
--- NOTE | 2019-02-04 02:10 | NUR ---
IV ATIVAN GIVEN, PATIENT BECOMING RESTLESS AND HYPERTENSIVE. WILL CONTINUE TO MONITOR AND REASSESS.
[2019-02-04 04:00] VITALS: BP 136/55
[2019-02-04 06:13] LABS: ALBUMIN 3.1 gm/dl (3.1-4.5); ALKALINE PHOSPHATASE 48 U/L (45-117); BASO % 0.1 % (0.0-1.0); BUN 38 mg/dl (7-24); CHLORIDE 101 mmol/L (98-107); CREATININE 0.93 mg/dL (0.55-1.02); HEMATOCRIT 37.8 % (37.0-47.0); HEMOGLOBIN 11.2 g/dl (12.0-16.0); LYMPH % 5.7 % (27.0-41.0); MEAN CELL VOLUME 91.3 fl (81.0-99.0); MEAN CORPUSCULAR HGB 27.1 pg (27.0-31.0); MEAN CORPUSCULAR HGB CONC 29.6 g/dl (33.0-37.0); MEAN PLATELET VOLUME 10.1 fl (9.6-12.3); MONO # 1.1 10*3/uL (0.1-1.0); MONO % 6.1 % (3.0-9.0); NEUT # 15.1 10*3/uL (2.3-7.9); NEUT % 87.5 % (47.0-73.0); PHOSPHOROUS 4.1 mg/dL (2.5-4.9); PLATELET COUNT AUTOMATED 230 10*3/uL (130-400); POTASSIUM 4.3 mmol/L (3.5-5.1); RED BLOOD COUNT 4.14 10*6/uL (4.10-5.10); SGOT/AST 33 IU/L (3-35); SGPT/ALT 45 U/L (12-78); SODIUM 142 mmol/L (136-145); TOTAL PROTEIN 6.8 gm/dL (6.4-8.2); WHITE BLOOD COUNT 17.2 10*3/uL (4.8-10.8)
--- NOTE | 2019-02-04 07:01 | NUR ---
Shift chart check completed.24 HR chart check completed.
[2019-02-04 08:00] VITALS: BP 128/58; BP 130/60
--- NOTE | 2019-02-04 09:28 | NUR ---
PATIENT HAS BEEN ON THE BIPAP FOR ROUGHLY 48 HOURS, GOING TO ATTEMPT A HIGH FLOW NASAL CANNULA TO GIVE THE PATIENT MORE OF A BREAK FROM THE BIPAP, THAT WOULD LAST LONGER THAN 1/2 AN HOUR.
--- NOTE | 2019-02-04 09:36 | NUR ---
COMPLETE BEDBATH GIVEN. PT DANGLED AT SIDE OF BED, DID NOT HOLD HERSELF ERECT VERY WELL. DID STAND,BEAR WT AND PIVOTED TO THE CHAIR. BIPAP LEFT ON THE ENTIRE TIME TO AID HER BREATHING. IN TO SEE PT.
--- NOTE | 2019-02-04 10:42 | NUR ---
PT ABLE TO TAKE HER MEDS, WHOLE WITH SIPS OF WATER. SHE THEN ASKED FOR A "URENA" ICE.
--- NOTE | 2019-02-04 11:02 | NUR ---
patient is tolerating optiflow very well. flow at 45l and oxygen at 40% with an spo2 of 98%. patient will be placed back on bipap soon.
--- NOTE | 2019-02-04 11:21 | NUR ---
FED 50% URENA ICE WHILE ON HIGH FLOW NASAL O2 40%.
--- NOTE | 2019-02-04 11:55 | NUR ---
BACK TO BED WITH ASSIST OF RESPIRATORY. FAIR WT BEARING. POSITIONED FOR COMFORT ON HER RIGHT SIDE PER HER REQUEST.
[2019-02-04 12:00] VITALS: BP 93/37
--- NOTE | 2019-02-04 12:44 | NUR ---
DR MUIR HERE - CASE REVIEWED - PATIENT SEEN - ORDERS TO DC ATIVAN & START PRN XANAX RECEIVED
--- NOTE | 2019-02-04 12:54 | NUR ---
DR MUIR IN TO SEE PATIENT. HAS GONE HOME. PT RESTING EASILY. BIPAP IN PLACE.
[2019-02-04 16:00] VITALS: BP 140/62
--- NOTE | 2019-02-04 17:48 | NUR ---
PT FED ALL YOGURT AND 1/2 MASHED POTATOES AND GRAVY WITH WATER. SHE'S ON HIGH FLOW NASAL CANNULA 40% AND 45L/MIN FLOW.
[2019-02-04 20:00] VITALS: BP 134/65
--- NOTE | 2019-02-04 20:23 | NUR ---
PT. RESTING IN BED. IV SITES IN RIGHT UPPER ARM AND RIJ ASYMPT, ALL PORTS HEP LOCKED. LUNGS HAVE EXP. WHEEZES AND RHONCHI BILAT, PULSE OX 95% ON 40% HI FLOW 02. ABDOMEN SOFTLY DISTENDED AND NORMO, OBESE. TRACE ANKLE EDEMA BILAT. HERNANDEZ DRAINING A CLEAR YELLOW URINE. RESP. SLIGHTLY LABORED, NO DISTRESS. CARMELA GASCA RN
--- NOTE | 2019-02-04 21:15 | NUR ---
PT. REPEATEDLY SAYING "I CANT BREATH, PULSE OX 95%, NO DISTRESS NOTED". XANAX GIVEN AT 2108 FOR ANXIETY AND PRIOR TO BIPAP WHICH PT STATED SHE "CANT TOLERATE".
--- NOTE | 2019-02-04 21:20 | NUR ---
PATIENT PLACED ON BIPAP FOR THE NIGHT
--- NOTE | 2019-02-04 21:33 | NUR ---
PT. GIVEN BED BATH AND BED LINENS CHANGED. PT. REPOSITIONED FOR COMFORT. CARMELA GASCA RN
--- NOTE | 2019-02-04 22:10 | NUR ---
PT. TOLERATING BIPAP, XANAX EFFECTIVE FOR ANXIETY. CARMELA GASCA RN
[2019-02-05] VITALS: BP 100/52
[2019-02-05 04:00] VITALS: BP 142/68
[2019-02-05 05:29] LABS: BASO % 0.1 % (0.0-1.0); HEMATOCRIT 38.1 % (37.0-47.0); HEMOGLOBIN 11.4 g/dl (12.0-16.0); LYMPH # 1.4 10*3/uL (1.3-4.4); LYMPH % 7.4 % (27.0-41.0); MEAN CELL VOLUME 90.3 fl (81.0-99.0); MEAN CORPUSCULAR HGB CONC 29.9 g/dl (33.0-37.0); MEAN PLATELET VOLUME 10.2 fl (9.6-12.3); MONO % 5.4 % (3.0-9.0); NEUT # 15.7 10*3/uL (2.3-7.9); NEUT % 86.6 % (47.0-73.0); PLATELET COUNT AUTOMATED 266 10*3/uL (130-400); RED BLOOD COUNT 4.22 10*6/uL (4.10-5.10); RED CELL DISTRI WIDTH 16.8 % (0-14.5); WHITE BLOOD COUNT 18.2 10*3/uL (4.8-10.8)
[2019-02-05 05:46] LABS: BUN 40 mg/dl (7-24); CHLORIDE 96 mmol/L (98-107); POTASSIUM 4.2 mmol/L (3.5-5.1); SODIUM 143 mmol/L (136-145)
--- NOTE | 2019-02-05 07:11 | NUR ---
Shift chart check completed.24 HR chart check completed.
[2019-02-05 08:00] VITALS: BP 141/63; BP 150/80
--- NOTE | 2019-02-05 09:22 | NUR ---
FED PT ALL OF YOGURT, FEW BITES OF CEREAL, ALL JUICE, AND WATER. WAS BEGGING FOR HER BIPAP. SO IT WAS PLACED ON HER. SHE ASKED TO GO BACK TO BED. TILTED HER BACK IN HER RECLINER CHAIR. HERE. M.O.M. FOR NO DOCUMENTED BM SINCE 01/24. DR OREILLY HAS VISITED. PLAN FOR MLC REMOVAL.
--- NOTE | 2019-02-05 09:47 | NUR ---
BACK TO BED WITH ASSIST OF TWO. MLC REMOVED RIJ. DR MUIR HAS VISITED.
--- NOTE | 2019-02-05 10:36 | NUR ---
XANAX AND REPOSITIONED FOR ANXIETY.
--- NOTE | 2019-02-05 10:57 | NUR ---
APPEARS TO BE SLEEPING EASILY, BIPAP MASK IN PLACE.
[2019-02-05 12:00] VITALS: BP 115/46
--- NOTE | 2019-02-05 12:43 | NUR ---
EARLIER XANAX HAS ALLOWED HER TO NAP
--- NOTE | 2019-02-05 12:50 | NUR ---
PT REMAINS IN ICU. PT HAS NO INSURANCE AND CAN NOT GO TO A [facility] OR [facility]. WILL CONTINUE TO FOLLOW.
--- NOTE | 2019-02-05 14:07 | NUR ---
OUT OF BED TO CHAIR AT HER REQUEST. TOLERATING ACTIVITY BETTER AND GETS UP EASIER THAN YESTERDAY.
--- NOTE | 2019-02-05 14:37 | NUR ---
PT BEGS FOR BIPAP BACK. HER PULSE OX IS 97% ON HIGH FLOW NASAL CANNULA BUT SHE CLAIMS "I CAN'T BREATHE, PLEASE GIVE ME BIPAP". RESPIRATORY HAS PLACED HER ON BIPAP UNTIL HER LUNCH ARRIVES.
--- NOTE | 2019-02-05 15:45 | NUR ---
BACK TO BED AT PT'S INSISTENCE. I PHONED HER FOR HER AT HER REQUEST.
[2019-02-05 16:00] VITALS: BP 113/45
--- NOTE | 2019-02-05 16:06 | NUR ---
HERE AND PT SLEEPING EASILY WITH HER BIPAP MASK IN PLACE.
--- NOTE | 2019-02-05 17:52 | NUR ---
FED 1/2 OF HER MASHED POTATOES/GRAVY AND YOGURT. ENCOURAGED TO SIT UP IN CHAIR TO LET HER FOOD DIGEST.
--- NOTE | 2019-02-05 17:53 | NUR ---
PATIENT TAKEN OFF OF BIPAP, THE BRIDGE OF THE NOSE HAS DEVELOPED A SORE. MOST LIKELY FROM CONTINEOUS USE OF THE BIPAP. NURSE AWARE.
--- NOTE | 2019-02-05 18:02 | NUR ---
SITTING UP IN CHAIR, ON BIPAP MASK AT THIS TIME.
--- NOTE | 2019-02-05 18:04 | NUR ---
TYLENOL FOR BACK PAIN. PT HAS A RAISED RASH, ONLY APPEARS TO BE ON HER BACK. NO C/O ITCHING.
[2019-02-05 20:00] VITALS: BP 91/33
--- NOTE | 2019-02-05 20:12 | NUR ---
PT. RESTING IN BED. RIGHT UPPER ARM HEP LOCK ASYMPT. LUNGS DIMINISHED WITH AN EXP. WHEEZES BILAT, PULSE OX 98% ON 40% BIPAP. ABDOMEN SOFTLY DISTENDED AND NORMO. TRACE BLE EDEMA NOTED. HERNANDEZ DRAINING A CLEAR YELLOW URINE. RESP. EASY AND REG, NO DISTRESS. CARMELA GASCA RN
--- NOTE | 2019-02-05 21:32 | NUR ---
PT. GIVEN XANAX AT 2109 ORDERED FOR ANXIETY, BED BATH GIVEN AND BED LINENS CHANGED. TOLERATING BIPAP CURRENTLY, REPOSITIONED FOR COMFORT. XANAX EFFECTIVE. CARMELA GASCA RN
[2019-02-06] VITALS: BP 160/78
[2019-02-06 04:00] VITALS: BP 146/61
[2019-02-06 06:25] LABS: BASO % 0.1 % (0.0-1.0); HEMATOCRIT 39.3 % (37.0-47.0); HEMOGLOBIN 11.7 g/dl (12.0-16.0); LYMPH # 1.6 10*3/uL (1.3-4.4); LYMPH % 8.1 % (27.0-41.0); MEAN CELL VOLUME 89.7 fl (81.0-99.0); MEAN CORPUSCULAR HGB 26.7 pg (27.0-31.0); MEAN CORPUSCULAR HGB CONC 29.8 g/dl (33.0-37.0); MEAN PLATELET VOLUME 9.9 fl (9.6-12.3); MONO # 1.4 10*3/uL (0.1-1.0); NEUT # 16.5 10*3/uL (2.3-7.9); NEUT % 84.1 % (47.0-73.0); PLATELET COUNT AUTOMATED 293 10*3/uL (130-400); RED BLOOD COUNT 4.38 10*6/uL (4.10-5.10); RED CELL DISTRI WIDTH 15.9 % (0-14.5); WHITE BLOOD COUNT 19.6 10*3/uL (4.8-10.8)
[2019-02-06 06:41] LABS: BUN 35 mg/dl (7-24); CHLORIDE 92 mmol/L (98-107); CREATININE 0.89 mg/dL (0.55-1.02); POTASSIUM 4.3 mmol/L (3.5-5.1); SODIUM 133 mmol/L (136-145)
--- NOTE | 2019-02-06 07:19 | NUR ---
Shift chart check completed.24 HR chart check completed.
[2019-02-06 07:44] VITALS: BP 150/70
--- NOTE | 2019-02-06 08:28 | NUR ---
FED THREE BITES OF SCRAMBLED EGGS, TWO BITES OF YOGURT, ALL OJ AND GLASS OF WATER. XANAX FOR ANXIETY AND M.O.M FOR CONTINUED CONSTIPATION.
--- NOTE | 2019-02-06 08:29 | NUR ---
DR JADE HAS VISITED. PT IS UP IN CHAIR AT THIS TIME. VERY DIMINISHED BREATH SOUNDS WITH WHEEZE. DR OREILLY HAS VISITED. INFORMED THEM OF VAGINAL DRAINAGE REPORTED TO ME BY BODY WORKER PAST TWO NIGHTS. HERNANDEZ PATENT YELLOW URINE. BILATERAL TUBI MANAGER AUTO ON. ACCUCATH PATENT/ASYMPTOMATIC ALEXIS. SEE ALL APPROPRIATE INTERVENTIONS.
--- NOTE | 2019-02-06 09:22 | NUR ---
BACK TO BED WITH ASSIST. REMAINS ON HIGH FLOW NASAL CANNULA, MUCH LONGER THAN PAST SEVERAL DAYS.
--- NOTE | 2019-02-06 09:48 | NUR ---
EARLIER XANAX EFFECTIVE, UP TO BSC FEELING LIKE SHE NEEDS TO MOVE HER BOWELS. HAD MOM YESTERDAY AND TODAY.
--- NOTE | 2019-02-06 10:02 | NUR ---
NO BM WHILE UP.
--- NOTE | 2019-02-06 11:38 | NUR ---
PT REMAIMS IN ICU ON BIPAP. WILL CONTINUE TO FOLLOW.
[2019-02-06 12:00] VITALS: BP 167/67
--- NOTE | 2019-02-06 12:20 | NUR ---
TYLENOL AND REPOSITIONED FOR BACK DISCOMFORT.
--- NOTE | 2019-02-06 13:20 | NUR ---
DR MUIR HAS VISITED. REVIEW OF MEDS, RENEW SEPTRA FOR 3 MORE DAYS (6 DOSES).
--- NOTE | 2019-02-06 14:28 | NUR ---
OUT OF BED TO CHAIR, OPTIFLOW CANNULA IN PLACE.
--- NOTE | 2019-02-06 15:46 | NUR ---
BACK TO BED, ASSISTED TO POSITION OF COMFORT. REMAINS ON OPTIFLOW CANNULA.
[2019-02-06 16:00] VITALS: BP 123/49
--- NOTE | 2019-02-06 17:40 | NUR ---
BACK TO BED AFTER BEING FED A FEW BITES BY HER .
[2019-02-06 20:00] VITALS: BP 174/82
--- NOTE | 2019-02-06 20:26 | NUR ---
MEDICATED WITH XANAX 0.25MG PO ORDERED FOR COMPLAINTS OF ANXIETY
--- NOTE | 2019-02-06 21:15 | NUR ---
REMAINS IN CHAIR. DROWSY. VOICES THAT XANAX WAS EFFECTIVE
[2019-02-07] VITALS: BP 143/66
[2019-02-07 04:00] VITALS: BP 177/82
[2019-02-07 05:34] LABS: BUN 30 mg/dl (7-24); CHLORIDE 93 mmol/L (98-107); CREATININE 0.76 mg/dL (0.55-1.02); POTASSIUM 4.7 mmol/L (3.5-5.1); SODIUM 135 mmol/L (136-145)
--- NOTE | 2019-02-07 05:35 | NUR ---
TAKEN OFF BI-PAP PER REQUEST
--- NOTE | 2019-02-07 06:13 | NUR ---
MEDICATED WITH XANAX ORDERED FOR ANXIETY.
[2019-02-07 06:28] LABS: BASO % 0.1 % (0.0-1.0); HEMATOCRIT 39.6 % (37.0-47.0); LYMPH # 0.9 10*3/uL (1.3-4.4); LYMPH % 6.4 % (27.0-41.0); MEAN CELL VOLUME 89.2 fl (81.0-99.0); MEAN CORPUSCULAR HGB CONC 30.3 g/dl (33.0-37.0); MEAN PLATELET VOLUME 10.1 fl (9.6-12.3); MONO # 0.6 10*3/uL (0.1-1.0); MONO % 4.5 % (3.0-9.0); NEUT # 12.7 10*3/uL (2.3-7.9); NEUT % 88.4 % (47.0-73.0); PLATELET COUNT AUTOMATED 322 10*3/uL (130-400); RED BLOOD COUNT 4.44 10*6/uL (4.10-5.10); RED CELL DISTRI WIDTH 15.4 % (0-14.5); WHITE BLOOD COUNT 14.4 10*3/uL (4.8-10.8)
[2019-02-07 08:00] VITALS: BP 162/64
--- NOTE | 2019-02-07 08:25 | NUR ---
PT NOT ON BIPAP AT THIS TIME
[2019-02-07 12:00] VITALS: BP 164/70
--- NOTE | 2019-02-07 15:04 | NUR ---
DR MUIR ROUNDED AND DISCUSSED NO SLEEPING PILLS OR INCREASE IN ANXIETY MEDICATON AT THIS TIME D/T RESP STATUS
[2019-02-07 16:00] VITALS: BP 133/51
--- NOTE | 2019-02-07 17:29 | NUR ---
DULCOLAX GIVEN @ 1645 FOR NO BM DESPITE TREATMENT PREVIOUS DAYS...SLEEPING SINCE PLACED ON BIPAP
[2019-02-07 20:00] VITALS: BP 167/69
--- NOTE | 2019-02-07 23:57 | NUR ---
CALLED DOCTOR WINSTON INFORMED THAT SINCE 1999 PATIENTS O2 HAS BEEN SLOWLY DROPPING I CALLED RESPIRATORY AND THEY HAD TO TURN HER UP TO 100% BLOOD GASES BEING DRAWN AT THIS TIME AND WILL CALL DOCTOR MUIR WITH RESULTS.
[2019-02-08] VITALS: BP 141/61
--- NOTE | 2019-02-08 00:15 | NUR ---
CALLED TO PATIENT BEDSIDE DUE TO SPO2 OF 88%. FIO2 WAS INCREASED TO 100%. SPO2 INCREASED TO 90% WITH RR IN 30'S PATIENTS VT WAS LOW-MID 200'S. SETTINGS TITRATED TO 27/8. VOLUMES INCREASED TO [phone], RR DECREASED FROM 30-22. SPO2 IMPROVED TO 96%. ABG OBTAINED. RN AND DR MUIR NOTIFIED OF CHANGES
[2019-02-08 00:31] LABS: ABG BASE EXCESS 13.1 mmol/L (-2.0-2.0); ARTERIAL BLOOD GAS PH 7.262 (7.35-7.45)
--- NOTE | 2019-02-08 00:48 | NUR ---
CALLED DOCTOR MUIR WITH PATIENTS BLOOD GASES AND INFORMED HIM OF BIPAP SETTINGS AND SAID THAT FINE REPEAT GASES IN THE MORNING. PATIENTS VITALS ARE CURRENTLY HR 82 RR19 O296%ON 85%
[2019-02-08 04:00] VITALS: BP 124/64
--- NOTE | 2019-02-08 04:30 | NUR ---
PATIENT INTUBATED WITH SIZE 8ET TUBE, 26 AT LIP VERIFIED BY AUSCULTATION, END TITAL CO2, BBS EQUAL, AND CHEST XRAY. PATIENT PLACED ON VENTILATOR VT400, F20, FIO2 70%, PEEP8
--- NOTE | 2019-02-08 04:52 | NUR ---
PATIENT WAS BREATHING AT A RATE OF 40 BPM AND PULSE OX WAS 89% CALLED DOCTOR WOOD WHO SAID TO INTUBATE THE PATIENT. CALLED DOCTOR PADMINI FROM ER WHO CAME UP AND INTUBATED PATIENT WITH A #8 ET TUBE. PATIENT WAS INTUBATED WITH NO USE OF SEDATION. OG WAS PLACED AND WAITING TO CONFIRM PLACEMENT.
--- NOTE | 2019-02-08 05:30 | NUR ---
MARÍA ENRIQUEZ WAS CALLED POST INTUBATION AFTER I WAS STANDING AND THE ROOM AND THE PATIENTS HEART RATE WENT TO 34 THEN TO 28 THEN TO ASYSTOLE. DUE TO PATIENTS ACCUCATH BEING SLUGISH AN IO WAS PLACED IN HER RIGHT VASQUEZ AT THIS TIME BY DOCTOR PADMINI. MEDS THEN GIVEN AND CPR CONTINUED AT THIS TIME. DURING A PULSE CHECK AT 0541 PATIENT HAD PULSE OF 104 AND BP WAS 159/65 PATIENT STILL NOT CURRENTLY SEDTAED WITH ANY MEDICATIONS AT THIS TIME. PATIENTS FAMILY IS AWARE AND ARE AT BEDSIDE.
[2019-02-08 06:34] LABS: CREATININE 1.7 mg/dL (0.55-1.02); POTASSIUM 5.2 mmol/L (3.5-5.1)
[2019-02-08 06:37] LABS: MEAN CORPUSCULAR HGB 27.3 pg (27.0-31.0); MEAN CORPUSCULAR HGB CONC 28.9 g/dl (33.0-37.0); MEAN PLATELET VOLUME 9.8 fl (9.6-12.3); PLATELET COUNT AUTOMATED 352 10*3/uL (130-400); RED BLOOD COUNT 4.77 10*6/uL (4.10-5.10); RED CELL DISTRI WIDTH 15.1 % (0-14.5); WHITE BLOOD COUNT 27.8 10*3/uL (4.8-10.8)
[2019-02-08 06:38] LABS: PHOSPHOROUS 8.4 mg/dL (2.5-4.9)
[2019-02-08 06:39] LABS: TROPONIN I 0.086 ng/ml (<0.045)
[2019-02-08 06:43] LABS: MEAN CELL VOLUME 94.3 fl (81.0-99.0)
[2019-02-08 06:48] LABS: OVALOCYTES FEW; PLATELET SUFFICIENCY NORMAL (NORMAL); TOTAL CELLS COUNTED 100 #CELLS
--- NOTE | 2019-02-08 07:00 | NUR ---
DURING REPORT PATIENT HEART RATE WAS SINUS 88 AND SUDDENLY DROPPED TO 50'S. PATIENT HAD A PULSE & WAS ON THE VENTILATOR. AT BEDSIDE. HEART RATE THEN SLOWLY CAME UP WITHOUT INTERVENTION.
--- NOTE | 2019-02-08 07:30 | NUR ---
PATIENT HEART RATE AGAIN DROPPING QUICKLY - STAFF ENTERED ROOM AND PATIENT WITH A PULSE ON THE VENTILATOR LOST HER PULSE - CODE CALLED & CPR STARTED. SEE CODE BLUE SHEET. AT ONE POINT A PULSE RETURNED AND LEVOPHED WAS STARTED VIA IO SITE HOWEVER IT QUICKLY DROPPED AND AGAIN PATIENT WAS PULSELESS. CPR STARTED - DEFIB FOR 200 JOULES. AWAITING LIFE FLIGHT D/T CHANGE IN CONDITION AND AFTER THEY WERE AIRBORN THE REQUESTED ALL EFFORTS BE STOPPED SHE WOULD NOT WANT ALL THIS AND HE BELIEVED THAT SHE WAS NEVER GOING TO RECOVER ENOUGH TO COME HOME. DR OREILLY HERE AND TALKING WITH THE - EFFORTS TERMINATED. THEN REQUESTED ALL MEDS & VENT BE STOPPED. MORPHINE GIEN STAT THEN LEVOPHED & IVF STOPPED - PT MADE DNR-CC. THE VERBAL ORDER WAS RECEIVED TO REMOVE THE VENTILATOR & RESP THERAPY CALLED AND PT EXTUBATED. FAMILY AT BEDSIDE.
[2019-02-08 07:35] LABS: ABG BASE EXCESS 5.4 mmol/L (-2.0-2.0); ARTERIAL BLOOD GAS PH 7.202 (7.35-7.45)
[2019-02-08 08:00] VITALS: BP 66/38
[2019-02-08 08:58] LABS: CREATININE 2.01 mg/dL (0.55-1.02); POTASSIUM 5.6 mmol/L (3.5-5.1); TOTAL PROTEIN 6.7 gm/dL (6.4-8.2)
--- NOTE | 2019-02-08 09:02 | NUR ---
PT WAS EXTUBATED PER PHYSCIAN ORDER.
[2019-02-08 09:05] LABS: TROPONIN I 0.213 ng/ml (<0.045)
--- NOTE | 2019-02-08 09:24 | NUR ---
PT ASYSTOLE ON MONITOR - [address] N[address] NO P[address] OREILLY CONTACTED & MADE AWARE (HE WILL SIGN CERTIFICATE)
--- NOTE | 2019-02-08 09:32 | NUR ---
ONE [facility] CALLED PER POLICY - #[id number] PER ONE CALL BODY IS NOT RELEASED TO [facility] - SEND TO [facility] – [place] & THEY WILL FAX A LIST OF ITEMS THAT THEY NEED TO REVIEW. PT IS A REGISTERED [employer]GAN [employer]OR. SPOKE WITH AND HE IS AWARE THAT THEY ARE REVIEWING THE CASE.
--- NOTE | 2019-02-08 10:02 | NUR ---
Removed reaves cath, IO from RLE, accu cath RUE, arterial line form left brachial @ 1000.
--- NOTE | 2019-02-08 10:19 | NUR ---
POST MORTUM CARE DONE. ICE PLACED ON EYES..FAMILY HAS LEFT
--- NOTE | 2019-02-08 10:34 | NUR ---
ARRANGEMENTS FOR PATIENT TO GO [place] [facility] [place] [facility] CALLED
--- NOTE | 2019-02-08 11:34 | NUR ---
RECEIVED CALL FROM ONE [facility], SPOKE W/ ADOLFO HUGHES TO RELEASE THE BODY..[facility] CALLED & MESSAGE LEFT
--- NOTE | 2019-02-08 14:51 | NUR ---
[facility]WAITING [facility]
--- NOTE | 2019-02-08 17:22 | NUR ---
PATIENT REMAINS IN [place] AWAITING HOME ARRIVAL - WILL COMPLETE CHART TO OPEN UP ROOM. SOMEONE WILL HAVE TO GO IN AFTER DISCHARGE TO CHART THAT THE BODY WAS RETRIEVED
== END 2019-02-08 17:22 | disposition expired | DRG 207 ==
LOC: RESCLI 00:49 → 5E 11:25 → ICCU 11:25 → 5E 01-26 10:42 → ICCU 01-26 10:54
PROVIDERS: Family Medicine; Internal Medicine; Internal Medicine Critical Care Medicine; Registered Nurse; Student in an Organized Health Care Education/Training Program; ADMIT Internal Medicine
PROC: 5A12012 Performance of Cardiac Output, Single, Manual (ICD-10-PCS; principal; 2019-01-23)
PROC: 5A09357 Assistance with Respiratory Ventilation, Less than 24 Consecutive Hours, Continuous Positive Airway Pressure (ICD-10-PCS; 2019-01-26)
PROC: 5A09357 Assistance with Respiratory Ventilation, Less than 24 Consecutive Hours, Continuous Positive Airway Pressure (ICD-10-PCS; 2019-01-27)
PROC: 03HY32Z Insertion of Monitoring Device into Upper Artery, Percutaneous Approach (ICD-10-PCS; 2019-01-28)
PROC: 4A133J1 Monitoring of Arterial Pulse, Peripheral, Percutaneous Approach (ICD-10-PCS; 2019-01-28)
PROC: 5A09357 Assistance with Respiratory Ventilation, Less than 24 Consecutive Hours, Continuous Positive Airway Pressure (ICD-10-PCS; 2019-01-28)
PROC: B548ZZA Ultrasonography of Superior Vena Cava, Guidance (ICD-10-PCS; 2019-01-28)
PROC: 5A1955Z Respiratory Ventilation, Greater than 96 Consecutive Hours (ICD-10-PCS; 2019-01-28)
PROC: 4A133B1 Monitoring of Arterial Pressure, Peripheral, Percutaneous Approach (ICD-10-PCS; 2019-01-28)
PROC: 02HV33Z Insertion of Infusion Device into Superior Vena Cava, Percutaneous Approach (ICD-10-PCS; 2019-01-28)
PROC: 0BH17EZ Insertion of Endotracheal Airway into Trachea, Via Natural or Artificial Opening (ICD-10-PCS; 2019-01-28)
PROC: 0BC58ZZ Extirpation of Matter from Right Middle Lobe Bronchus, Via Natural or Artificial Opening Endoscopic (ICD-10-PCS; 2019-01-30)
PROC: 0BC18ZZ Extirpation of Matter from Trachea, Via Natural or Artificial Opening Endoscopic (ICD-10-PCS; 2019-01-30)
PROC: 0BC78ZZ Extirpation of Matter from Left Main Bronchus, Via Natural or Artificial Opening Endoscopic (ICD-10-PCS; 2019-01-30)
PROC: 0BC68ZZ Extirpation of Matter from Right Lower Lobe Bronchus, Via Natural or Artificial Opening Endoscopic (ICD-10-PCS; 2019-01-30)
PROC: 0BC38ZZ Extirpation of Matter from Right Main Bronchus, Via Natural or Artificial Opening Endoscopic (ICD-10-PCS; 2019-01-30)
PROC: 0BC98ZZ Extirpation of Matter from Lingula Bronchus, Via Natural or Artificial Opening Endoscopic (ICD-10-PCS; 2019-01-30)
PROC: 0BCB8ZZ Extirpation of Matter from Left Lower Lobe Bronchus, Via Natural or Artificial Opening Endoscopic (ICD-10-PCS; 2019-01-30)
PROC: 0BC48ZZ Extirpation of Matter from Right Upper Lobe Bronchus, Via Natural or Artificial Opening Endoscopic (ICD-10-PCS; 2019-01-30)
PROC: 0BC88ZZ Extirpation of Matter from Left Upper Lobe Bronchus, Via Natural or Artificial Opening Endoscopic (ICD-10-PCS; 2019-01-30)
PROC: 5A09357 Assistance with Respiratory Ventilation, Less than 24 Consecutive Hours, Continuous Positive Airway Pressure (ICD-10-PCS; 2019-02-02)
PROC: 5A09357 Assistance with Respiratory Ventilation, Less than 24 Consecutive Hours, Continuous Positive Airway Pressure (ICD-10-PCS; 2019-02-03)
PROC: 5A09357 Assistance with Respiratory Ventilation, Less than 24 Consecutive Hours, Continuous Positive Airway Pressure (ICD-10-PCS; 2019-02-04)
PROC: 5A09357 Assistance with Respiratory Ventilation, Less than 24 Consecutive Hours, Continuous Positive Airway Pressure (ICD-10-PCS; 2019-02-05)
PROC: 5A2204Z Restoration of Cardiac Rhythm, Single (ICD-10-PCS; 2019-02-05)
PROC: 5A09357 Assistance with Respiratory Ventilation, Less than 24 Consecutive Hours, Continuous Positive Airway Pressure (ICD-10-PCS; 2019-02-06)
PROC: 5A09357 Assistance with Respiratory Ventilation, Less than 24 Consecutive Hours, Continuous Positive Airway Pressure (ICD-10-PCS; 2019-02-07)
PROC: B54NZZA Ultrasonography of Left Upper Extremity Veins, Guidance (ICD-10-PCS; 2019-02-08)
PROC: 5A1935Z Respiratory Ventilation, Less than 24 Consecutive Hours (ICD-10-PCS; 2019-02-08)
PROC: 05HY33Z Insertion of Infusion Device into Upper Vein, Percutaneous Approach (ICD-10-PCS; 2019-02-08)
PROC: 5A09357 Assistance with Respiratory Ventilation, Less than 24 Consecutive Hours, Continuous Positive Airway Pressure (ICD-10-PCS; 2019-02-08)
DX: J96.21 Acute and chronic respiratory failure with hypoxia (principal); J44.1 Chronic obstructive pulmonary disease with (acute) exacerbation; E44.0 Moderate protein-calorie malnutrition; I24.8 Other forms of acute ischemic heart disease; E87.3 Alkalosis; J44.0 Chronic obstructive pulmonary disease with (acute) lower respiratory infection; I50.20 Unspecified systolic (congestive) heart failure; J96.22 Acute and chronic respiratory failure with hypercapnia; I73.9 Peripheral vascular disease, unspecified; R91.1 Solitary pulmonary nodule; E55.9 Vitamin D deficiency, unspecified; I25.10 Atherosclerotic heart disease of native coronary artery without angina pectoris; F32.9 Major depressive disorder, single episode, unspecified; F17.210 Nicotine dependence, cigarettes, uncomplicated; R79.89 Other specified abnormal findings of blood chemistry; Z51.5 Encounter for palliative care; Z66 Do not resuscitate; A49.8 Other bacterial infections of unspecified site; A49.02 Methicillin resistant Staphylococcus aureus infection, unspecified site; N89.8 Other specified noninflammatory disorders of vagina; J20.9 Acute bronchitis, unspecified; F41.1 Generalized anxiety disorder; I25.5 Ischemic cardiomyopathy; D64.9 Anemia, unspecified; I11.0 Hypertensive heart disease with heart failure; I27.81 Cor pulmonale (chronic); T38.0X5A Adverse effect of glucocorticoids and synthetic analogues, initial encounter; D72.829 Elevated white blood cell count, unspecified; E66.01 Morbid (severe) obesity due to excess calories; Z99.81 Dependence on supplemental oxygen; Z79.899 Other long term (current) drug therapy; Z98.42 Cataract extraction status, left eye; Z98.41 Cataract extraction status, right eye; Z90.711 Acquired absence of uterus with remaining cervical stump; Z93.0 Tracheostomy status; Z82.49 Family history of ischemic heart disease and other diseases of the circulatory system; Y92.89 Other specified places as the place of occurrence of the external cause; Z68.32 Body mass index [BMI] 32.0-32.9, adult